=== PATIENT | male | born 1955 | race Caucasian/White ===

== ENCOUNTER → 2017-02-28 | Outpatient (CLI) | payer SELFPAY ==
--- NOTE | 2017-02-28 09:38 | CT ---
HISTORY: Screening. Cardiac CTA with calcium scoring Technique: Multiple axial images of the chest were obtained on a [address] from the aortic arch to the base of the heart with retrospective cardiac gating. Noncontrast evaluation of th e heart was performed for calcium scoring with prospective gating. Dose reduction techniques includi ng Automated Exposure Control (AEC) and adjustment of mA and kV were utilized. Findings: A total calcium score of 712 is observed. The score results in a high likelihood of coronary events given the age and sex matched cohort analysis. Minimal coronary artery disease is seen within the left main coronary artery. Mild coronary artery di sease is seen within the left circumflex coronary artery. Moderate coronary artery disease is seen wi thin the left anterior descending coronary artery. Severe disease is seen within the right coronary a rtery. Extracardiac findings: No pathologically enlarged lymphadenopathy can be observed. The aortic arch is unremarkable in its a ppearance with normal vascular configuration. No significant pericardial effusion can be identified. The visualized portions of the lung parenchyma are unremarkable. No lytic or blastic lesions can b e identified within the visualized bony thorax. The visualized portions of the abdomen demonstrate n ormal perfusion patterns of the spleen and liver. IMPRESSION: Total calcium score of 712 corresponding to a high likelihood of coronary artery events. Reported By:
== END ==
LOC: RAD 08:35
PROVIDERS: ATTEND Internal Medicine
DX: Z13.6 Encounter for screening for cardiovascular disorders (principal)

== ENCOUNTER 2021-11-13 15:26 | Inpatient (IN) ==
[2021-11-13 16:36] LABS: LYMPHOCYTES # (AUTO) 0.6 X10^3/uL (1.3-2.9); WHITE BLOOD COUNT 19.7 X10^3/uL (3.6-10.0)
[2021-11-13 16:40] LABS: BASOPHILS % (AUTO) 0.1 % (0.2-1.0); EOSINOPHILS % (AUTO) 0.1 % (0.9-2.9); HEMATOCRIT 37.5 % (42.0-54.0); HEMOGLOBIN 12.7 g/dL (13.5-18.0); LYMPHOCYTES % (AUTO) 3.3 % (21.0-51.0); MEAN CORPUSCULAR HEMOGLOBIN 30.2 pg (27.0-34.0); MEAN CORPUSCULAR HGB CONC 33.9 g/dL (33.0-35.0); MEAN PLATELET VOLUME 8.9 fL (7.4-11.0); MONOCYTES # (AUTO) 1.4 x10^3/uL (0.3-0.8); MONOCYTES % (AUTO) 7.3 % (0.0-13.0); NEUTROPHILS # (AUTO) 17.6 x10^3/uL (2.2-4.8); NEUTROPHILS % (AUTO) 89.2 % (42.0-75.0); RED BLOOD COUNT 4.22 X10^6/uL (4.7-6.0); RED CELL DISTRIBUTION WIDTH 14.3 % (11.6-16.5)
[2021-11-13 16:51] LABS: PLATELET MORPHOLOGY COMMENT NORMAL (NORMAL)
[2021-11-13 16:52] LABS: ALBUMIN 2.6 g/dL (3.4-5.0); CALCIUM 8.5 mg/dL (8.5-10.1); CARBON DIOXIDE 23.2 mmol/L (21-32); COR CA(FOR HYPOALB) 9.6 mg/dL (8.5-10.1); CREATININE 3.54 mg/dL (0.70-1.30)
[2021-11-13] MEDS: VANCOMYCIN IV *PREMIX 1 G/200 ML BAG 1 G/200 ML PIGGYBACK IV SCH (17:50)
[2021-11-13] MEDS: NS 1,000 ML IV 1,000 ML IV SCH (17:50)
[2021-11-13] MEDS ORDERED: RESTORIL CAP 15 MG PO PRN (18:38)
[2021-11-13] MEDS ORDERED: NS 1,000 ML IV 1,000 ML IV ONE (20:14)
[2021-11-13] MEDS ORDERED: TORADOL 15 MG VIAL IVP PRN (20:14)
[2021-11-13] MEDS: INVanz INJ 1 GRAM VIAL 1 G in NS 100 ML IV 100 ML IV SCH (20:20)
[2021-11-13 23:53] LABS: ABG BASE EXCESS -1.1 mmol/L (-2.0-2.0); ABG HCO3 22.2 mmol/L (22-26)
[2021-11-13 23:54] LABS: ABG ALLEN TEST POS
[2021-11-14 06:15] LABS: BASOPHILS # (AUTO) 0.1 X10^3/uL (0.0-0.1); BASOPHILS % (AUTO) 0.4 % (0.2-1.0); EOSINOPHILS # (AUTO) 0.1 x10^3/uL (0.0-0.2); EOSINOPHILS % (AUTO) 0.6 % (0.9-2.9); HEMATOCRIT 33.8 % (42.0-54.0); HEMOGLOBIN 11.5 g/dL (13.5-18.0); LYMPHOCYTES # (AUTO) 0.7 X10^3/uL (1.3-2.9); LYMPHOCYTES % (AUTO) 4.3 % (21.0-51.0); MEAN CORPUSCULAR HEMOGLOBIN 30.2 pg (27.0-34.0); MEAN CORPUSCULAR HGB CONC 33.9 g/dL (33.0-35.0); MEAN CORPUSCULAR VOLUME 89.1 fL (80.0-100.0); MEAN PLATELET VOLUME 9.3 fL (7.4-11.0); MONOCYTES # (AUTO) 1.4 x10^3/uL (0.3-0.8); MONOCYTES % (AUTO) 8.5 % (0.0-13.0); NEUTROPHILS % (AUTO) 86.2 % (42.0-75.0); RED BLOOD COUNT 3.79 X10^6/uL (4.7-6.0); RED CELL DISTRIBUTION WIDTH 14.5 % (11.6-16.5); WHITE BLOOD COUNT 16.3 X10^3/uL (3.6-10.0)
[2021-11-14 06:30] LABS: ALBUMIN 2.1 g/dL (3.4-5.0); CARBON DIOXIDE 21.5 mmol/L (21-32); COR CA(FOR HYPOALB) 9.5 mg/dL (8.5-10.1); CREATININE 3.44 mg/dL (0.70-1.30); TOTAL PROTEIN 6.4 g/dL (6.4-8.2)
[2021-11-14] MEDS: NS 1,000 ML IV 1,000 ML IV SCH ×3 (07:01→19:50)
[2021-11-14 07:02] LABS: CKMB % 0.6 % (<4); CREATINE KINASE 165 Units/L (39-308); CREATINE KINASE MB < 1.0 ng/mL (0-4.0)
--- NOTE | 2021-11-14 10:44 | DR.UPDATE ---
H&P Update History and Physical Update: History and Physical reviewed and patient examined. Changes noted: Yes with the following: WAS A DIRECT ADMISSION DUE TO CELLULITIS OF THE RIGHT FOOT. HE HAS MULTIPLE WOUNDS TO THE FOOT. THERE IS ERYTHEMA AND EDEMA NOTED FROM THE FOOT UP TO THE CALF. PATIENT REPORTS UNSTEADY GAIT DUE TO FOOT PAIN AND SWELLING. HE BEGAN HAVING FEVER AND CHILLS ON 11/11/21. PAIN FIRST BEGAN ABOUT A WEEK AGO. HE DENIES INJURY. HE HAS A HX OF NEUROPATHY TO FEET, HYPERLIPIDEMIA, AND GOUT. ON ARRIVAL, VITALS WERE: 99.1-110-20-94%-98/61. LABS WERE OBTAINED. WBC 19.7, RBC 4.22, HGB 12.7, HCT 37.5, PLT COUNT 198, SODIUM 132, POTASSIUM 4.7, CHLORIDE 99, BUN 36, CREATININE 3.54, GLUCOSE 137, LACTIC ACID 1.9, CALCIUM 8.5, TOTAL PROTEIN 0.80, AST 20, ALT 27, ALK PHOS 92, CRP 473.90, TOTAL PROTEIN 7.0, ALBUMIN 2.6. BLOOD CULTURES WERE SET UP. HE WAS STARTED ON NORMAL SALINE AT 125 ML/HR, VANCOMYCIN 1G IV DAILY, INVANZ 1G IV DAILY, TORADOL 15MG IV Q12H PRN PAIN, DILAUDID 2MG IV Q4H PRN PAIN, KLONOPIN 0.5MG PO HS, AND ZOCOR 20MG PO HS. WE WILL CONSULT , GENERAL SURGEON, FOR POSSIBLE DEBRIDEMENT OF WOUNDS. OTHERWISE, WE PLAN TO FOLLOW-UP WITH AM LABS AND CONTINUE TO MONITOR. TIME SPENT ON CLINICAL ASSESSMENT, REVIEWING LABS AND IMAGING, DECISION MAKING, AND DOCUMENTATION GREATER THAN 75 MINUTES. H&P Reviewed: Yes Patient was examined?: Yes
--- NOTE | 2021-11-14 11:13 | VAS ---
HISTORY:Right lower extremity cellulitis, abscessStudy: Venous DopplerComparison:NoneTECHNIQUE: Multiple jennings scale and color flow Doppler images of the deep venous system were obtained of the right lower extremityFINDINGS:There is normal respiratory phasicity, compression and augmentation of the extremity veins without evidence of acute DVT .IMPRESSION:1.Negative for DVT.Electronically signed by: HUNTER STEVE (Nov 14, 2021 11:11:05)
--- NOTE | 2021-11-14 12:13 | RAD ---
HISTORYPreop foot surgerySTUDYAP chestCOMPARISONNoneFINDINGSHeart size is upper-normal with dilated aorta, clear lungs and pleural spaces. There is no evidence for CHF or pneumonia.IMPRESSIONNo acute findings.Electronically signed by: RAMIRO BUSBY (Nov 14, 2021 12:12:29)
[2021-11-14] MEDS: DILAUDID INJ IVP PRN (12:36)
[2021-11-14] MEDS ORDERED: NS 1,000 ML IV 1,000 ML ONE (12:47)
[2021-11-14] MEDS ORDERED: DIPRIVAN VIAL 20 ML ONE (13:02)
[2021-11-14] MEDS ORDERED: BETADINE SOLN ONE (13:07)
[2021-11-14] MEDS ORDERED: CLEOCIN 600 MG IV PREMIX 600 MG/50 ML BAG IV ONE (13:09)
[2021-11-14] MEDS ORDERED: KETAMINE HCL ONE (13:15)
[2021-11-14] MEDS ORDERED: VERSED ONE (13:20)
[2021-11-14] MEDS ORDERED: XYLOCAINE 1 % (PLAIN) ONE (13:27)
[2021-11-14] MEDS ORDERED: NEO-SYNEPHRINE INJ ONE (13:29)
[2021-11-14] MEDS ORDERED: NS 100 ML IV 100 ML ONE (13:48)
[2021-11-14] MEDS ORDERED: NEO-SYNEPHRINE INJ 30 MG in NS 500 ML IV 500 ML IV PRN (14:05)
[2021-11-14] MEDS ORDERED: ZOFRAN INJ 4 MG VIAL IVP PRN (14:22)
--- NOTE | 2021-11-14 14:25 | PCM.PROG ---
Progress Note - Past Medical Family Social History Allergies: Allergies Penicillins Allergy (Verified 11/13/21 15:58) - Vital Signs and I&O's Vital Signs: Temperature 97.6 F Pulse Rate [Radial] 114 Pulse Rate 97 Respiratory Rate 18 Blood Pressure [Right Arm] 92/54 Blood Pressure 95/61 O2 Sat by Pulse Oximetry 95 Intake and Output: Intake & Output 11/11/21 11/12/21 11/13/21 11/14/21 23:59 23:59 23:59 23:59 Intake Total 1683 / 1683 1423 / 1423 Output Total 499 / 499 Balance 1683 / 1683 924 / 924 - Physical Exam Mood Description: Calm Speech Pattern: Clear, Appropriate - Laboratory and Diagnostics Result Diagrams: 11/14/21 05:19 11/14/21 05:19 Labs: 11/13/21 16:25 Foot - Right Wound Gram Stain - Final 11/13/21 16:25 Foot - Right Wound Culture - Preliminary Laboratory WBC 16.3 X10^3/uL (3.6-10.0) H 11/14/21 05:19 RBC 3.79 X10^6/uL (4.7-6.0) L 11/14/21 05:19 Hgb 11.5 g/dL (13.5-18.0) L 11/14/21 05:19 Hct 33.8 % (42.0-54.0) L 11/14/21 05:19 MCV 89.1 fL (80.0-100.0) 11/14/21 05:19 MCH 30.2 pg (27.0-34.0) 11/14/21 05:19 MCHC 33.9 g/dL (33.0-35.0) 11/14/21 05:19 RDW 14.5 % (11.6-16.5) 11/14/21 05:19 Plt Count 184 X10^3/uL (150.0-450.0) 11/14/21 05:19 Plt Count Comment Adequate (ADEQUATE) 11/13/21 16:16 MPV 9.3 fL (7.4-11.0) 11/14/21 05:19 Neut % (Auto) 86.2 % (42.0-75.0) H 11/14/21 05:19 Lymph % (Auto) 4.3 % (21.0-51.0) L 11/14/21 05:19 Baxter % (Auto) 8.5 % (0.0-13.0) 11/14/21 05:19 Eos % (Auto) 0.6 % (0.9-2.9) L 11/14/21 05:19 Baso % (Auto) 0.4 % (0.2-1.0) 11/14/21 05:19 Neut # (Auto) 14.0 x10^3/uL (2.2-4.8) H 11/14/21 05:19 Lymph # (Auto) 0.7 X10^3/uL (1.3-2.9) L 11/14/21 05:19 Baxter # (Auto) 1.4 x10^3/uL (0.3-0.8) H 11/14/21 05:19 Eos # (Auto) 0.1 x10^3/uL (0.0-0.2) 11/14/21 05:19 Baso # (Auto) 0.1 X10^3/uL (0.0-0.1) 11/14/21 05:19 Absolute Nucleated RBC 0.0 /100WBC 11/14/21 05:19 Total Counted 100 11/13/21 16:16 Neutrophils % (Manual) 92 % (39-76) H 11/13/21 16:16 Lymphocytes % (Manual) 7 % (13-43) L 11/13/21 16:16 Monocytes % (Manual) 1 % (4-9) L 11/13/21 16:16 Plt Morphology Comment Normal (NORMAL) 11/13/21 16:16 RBC Morphology Normal (NORMAL) 11/13/21 16:16 Sample Site Rrad 11/13/21 23:50 ABG pH 7.450 (7.35-7.45) 11/13/21 23:50 ABG pCO2 32.0 mmHg (35.0-45.0) L 11/13/21 23:50 ABG pO2 93.0 mmHg (80.0-100.0) 11/13/21 23:50 ABG HCO3 22.2 mmol/L (22-26) 11/13/21 23:50 ABG O2 Saturation 98.0 % (90-100) 11/13/21 23:50 ABG Base Excess -1.1 mmol/L (-2.0-2.0) 11/13/21 23:50 Farhan Test Pos 11/13/21 23:50 A-a Gradient 95.0 mmHg 11/13/21 23:50 FiO2 32.0 11/13/21 23:50 Blood Gas Comments Wilmer well ms 11/13/21 23:50 Sodium 132 mmol/L (136-145) L 11/14/21 05:19 Corrected Sodium 132 mmol/L (136-145) L 11/14/21 05:19 Potassium 4.7 mmol/L (3.5-5.1) 11/14/21 05:19 Chloride 100 mmol/L (98-107) 11/14/21 05:19 Carbon Dioxide 21.5 mmol/L (21-32) 11/14/21 05:19 BUN 39 mg/dL (7-18) H 11/14/21 05:19 Creatinine 3.44 mg/dL (0.70-1.30) H 11/14/21 05:19 Est GFR (MDRD) Af Amer 23 (>60) L 11/14/21 05:19 Est GFR (MDRD) Non-Af 19 (>60) L 11/14/21 05:19 Glucose 116 mg/dL (65-99) H 11/14/21 05:19 Lactic Acid 1.9 mmol/L (0.4-2.0) 11/13/21 23:40 Calcium 8.0 mg/dL (8.5-10.1) L 11/14/21 05:19 Corrected Calcium 9.5 mg/dL (8.5-10.1) 11/14/21 05:19 Total Bilirubin 0.60 mg/dL (0.2-1.0) 11/14/21 05:19 AST 15 Units/L (15-37) 11/14/21 05:19 ALT 20 Units/L (12-78) 11/14/21 05:19 Alkaline Phosphatase 90 Units/L (46-116) 11/14/21 05:19 Creatine Kinase 165 Units/L (39-308) 11/14/21 05:19 CK-MB (CK-2) < 1.0 ng/mL (0-4.0) 11/14/21 05:19 CK/CKMB % Calc 0.6 % (<4) 11/14/21 05:19 Troponin I High Sens 6.6 ng/L (4.0-60.0) 11/14/21 05:19 C-Reactive Protein 450.00 mg/L (0-3.0) H 11/14/21 05:19 Total Protein 6.4 g/dL (6.4-8.2) 11/14/21 05:19 Albumin 2.1 g/dL (3.4-5.0) L 11/14/21 05:19 Globulin 4.3 g/dL (2.5-4.5) 11/14/21 05:19 Albumin/Globulin Ratio 0.5 Ratio (1.1-2.1) L 11/14/21 05:19 SARS-CoV-2 (PCR) Negative (NEGATIVE) 11/13/21 18:58 Tissue Pathology To follow 11/14/21 13:39 Procedures (ALL) - Central Line Placement PCM.CLCO: verbal consent Time out performed: Yes Patient placed pm monitor/pulse ox: Yes MD prep: mask, gown, gloves, other Centrial line prep: chlorhexidine scrub Local anesthsia used: lidocane 1% Ultrasound used for placement: Yes Central line lumen ininserted: triple Post procedure: sutured in place, good blood return, all ports aspirated, flushed,capped, sterile dressing applied Post procedure xray: tip oc catheter in good position, no pneumothorax seen, other Patient tolerated procedure: Yes Complications: none (good US visualization)
--- NOTE | 2021-11-14 15:07 | RAD ---
HISTORYLine placementSTUDYAP [id number]/12/2022 9:16 a.m.FINDINGSThere is a new right IJ line extending to the SVC. There is no definite change in appearance of heart or lungs since earlier today although the patient is significantly rotated, limiting cardiopulmonary evaluation. There is no evidence for pneumothorax.IMPRESSIONNo significant complication identified involving right IJ line placement.Electronically signed by: RAMIRO BUSBY (Nov 14, 2021 15:05:47)
[2021-11-14] MEDS ORDERED: STERILE WATER IRRIGATION IR ONE (15:29)
[2021-11-14 16:42] LABS: PHOSPHORUS 3.8 mg/dL (2.6-4.7)
[2021-11-14] MEDS: VANCOMYCIN IV *PREMIX 1 G/200 ML BAG 1 G/200 ML PIGGYBACK IV SCH (19:49)
[2021-11-14] MEDS: PHARMACY CONSULT - VANCOMYCIN XX SCH ×2 (19:57→22:38)
[2021-11-14] MEDS: INVanz INJ 1 GRAM VIAL 1 G in NS 100 ML IV 100 ML IV SCH (20:33)
[2021-11-14] MEDS: ZOCOR TAB 20 MG PO SCH (20:34)
[2021-11-14] MEDS ORDERED: KLONOPIN TAB 1 MG PO SCH (21:00)
[2021-11-15 04:18] LABS: HEMOGLOBIN 10.1 g/dL (13.5-18.0); MEAN PLATELET VOLUME 8.7 fL (7.4-11.0); RED BLOOD COUNT 3.31 X10^6/uL (4.7-6.0); RED CELL DISTRIBUTION WIDTH 14.3 % (11.6-16.5)
[2021-11-15 04:25] LABS: BASOPHILS # (AUTO) 0.1 X10^3/uL (0.0-0.1); BASOPHILS % (AUTO) 0.4 % (0.2-1.0); EOSINOPHILS # (AUTO) 0.2 x10^3/uL (0.0-0.2); EOSINOPHILS % (AUTO) 1.1 % (0.9-2.9); HEMATOCRIT 29.3 % (42.0-54.0); LYMPHOCYTES # (AUTO) 1.2 X10^3/uL (1.3-2.9); LYMPHOCYTES % (AUTO) 7.8 % (21.0-51.0); MEAN CORPUSCULAR HEMOGLOBIN 30.5 pg (27.0-34.0); MEAN CORPUSCULAR HGB CONC 34.5 g/dL (33.0-35.0); MEAN CORPUSCULAR VOLUME 88.5 fL (80.0-100.0); MONOCYTES # (AUTO) 1.1 x10^3/uL (0.3-0.8); MONOCYTES % (AUTO) 7.1 % (0.0-13.0); NEUTROPHILS # (AUTO) 12.9 x10^3/uL (2.2-4.8); NEUTROPHILS % (AUTO) 83.6 % (42.0-75.0); WHITE BLOOD COUNT 15.4 X10^3/uL (3.6-10.0)
[2021-11-15 04:27] LABS: ALANINE AMINOTRANSFERASE 18 Units/L (12-78); ALBUMIN 1.8 g/dL (3.4-5.0); ALKALINE PHOSPHATASE 87 Units/L (46-116); ASPARTATE AMINO TRANSFERASE 12 Units/L (15-37); BLOOD UREA NITROGEN 34 mg/dL (7-18); CALCIUM 7.6 mg/dL (8.5-10.1); CARBON DIOXIDE 22.7 mmol/L (21-32); CHLORIDE 103 mmol/L (98-107); COR CA(FOR HYPOALB) 9.4 mg/dL (8.5-10.1); CREATININE 2.62 mg/dL (0.70-1.30); SODIUM 133 mmol/L (136-145); TOTAL PROTEIN 5.9 g/dL (6.4-8.2); eGFR NON BLACK RACES 26 (>60)
[2021-11-15 04:30] LABS: LACTIC ACID 0.5 mmol/L (0.4-2.0)
[2021-11-15] MEDS: NS 1,000 ML IV 1,000 ML IV SCH ×2 (05:56→21:29)
[2021-11-15] MEDS: ALBUMIN HUMAN 25%- 100 ML 100 ML IV SCH (10:11)
[2021-11-15] MEDS ORDERED: DOPAMINE IV PREMIX 400 MG/250 ML 400 MG/250 ML BAG IV PRN (10:39)
[2021-11-15] MEDS ORDERED: MAALOX or MYLANTA PO PRN (12:09)
[2021-11-15] MEDS ORDERED: MAALOX or MYLANTA ONE (12:10)
--- NOTE | 2021-11-15 15:28 | RAD ---
CHEST, 1 VIEWHISTORY:SOBStudy: Single view of the chest.Comparison:NoneFindings:Cardiomegaly and pulmonary vascular congestion. No focal consolidations, pleural effusions or pneumothorax. Osseous structures demonstrate no acute abnormality.IMPRESSION:1.Cardiomegaly and pulmonary vascular congestion.Electronically signed by: AURE MANCINI (Nov 15, 2021 15:26:20)
--- NOTE | 2021-11-15 15:53 | DR.PROGNOT ---
Hospital Progress Notes - Progress Note for Day of: Progress Note Date: 11/15/21 - Chief Complaint Chief Complaint: comfortable with moderate foot pain . WBC 15.4.. BUN/Creat 34/2.6. temp 98.2. stable VS - Past Medical Family Social History Past Med/Fam/Surg Hx: No changes since H&P Allergies: Allergies Penicillins Allergy (Verified 11/13/21 15:58) - Review Of Systems ROS: No change since H&P - Vital Signs Vital Signs: Temperature 98.8 F Pulse Rate [Radial] 114 Pulse Rate 101 Respiratory Rate 36 Blood Pressure [Right Arm] 92/54 Blood Pressure 136/76 O2 Sat by Pulse Oximetry 98 - Physical Exam Oriented: Normal Ear: Normal Nose: Normal Throat: Normal Respiratory: Normal Cardiovascular: Normal : Normal GI:Auscultation: Normal GI:Palpation: Normal GI: Tenderness: Normal Skin: Other (dressing was changed and packing was replaced ... foot still erythematous . no clear necrosis or abscess formation ) Mood Description: Calm Speech Pattern: Clear, Appropriate - Laboratory and Diagnostics Result Diagrams: 11/15/21 04:06 11/15/21 04:06 Labs: 11/13/21 16:24 Blood Blood Culture - Preliminary 11/13/21 16:16 Blood Blood Culture - Preliminary 11/14/21 13:32 Foot - Right Wound Gram Stain - Final 11/14/21 13:32 Foot - Right Wound Culture - Preliminary 11/13/21 16:25 Foot - Right Wound Gram Stain - Final 11/13/21 16:25 Foot - Right Wound Culture - Final Methicillin Resis Staph Aureus Laboratory WBC 15.4 X10^3/uL (3.6-10.0) H 11/15/21 04:06 RBC 3.31 X10^6/uL (4.7-6.0) L 11/15/21 04:06 Hgb 10.1 g/dL (13.5-18.0) L 11/15/21 04:06 Hct 29.3 % (42.0-54.0) L 11/15/21 04:06 MCV 88.5 fL (80.0-100.0) 11/15/21 04:06 MCH 30.5 pg (27.0-34.0) 11/15/21 04:06 MCHC 34.5 g/dL (33.0-35.0) 11/15/21 04:06 RDW 14.3 % (11.6-16.5) 11/15/21 04:06 Plt Count 196 X10^3/uL (150.0-450.0) 11/15/21 04:06 Plt Count Comment Adequate (ADEQUATE) 11/13/21 16:16 MPV 8.7 fL (7.4-11.0) 11/15/21 04:06 Neut % (Auto) 83.6 % (42.0-75.0) H 11/15/21 04:06 Lymph % (Auto) 7.8 % (21.0-51.0) L 11/15/21 04:06 Baker % (Auto) 7.1 % (0.0-13.0) 11/15/21 04:06 Eos % (Auto) 1.1 % (0.9-2.9) 11/15/21 04:06 Baso % (Auto) 0.4 % (0.2-1.0) 11/15/21 04:06 Neut # (Auto) 12.9 x10^3/uL (2.2-4.8) H 11/15/21 04:06 Lymph # (Auto) 1.2 X10^3/uL (1.3-2.9) L 11/15/21 04:06 Baker # (Auto) 1.1 x10^3/uL (0.3-0.8) H 11/15/21 04:06 Eos # (Auto) 0.2 x10^3/uL (0.0-0.2) 11/15/21 04:06 Baso # (Auto) 0.1 X10^3/uL (0.0-0.1) 11/15/21 04:06 Absolute Nucleated RBC 0.1 /100WBC 11/15/21 04:06 Total Counted 100 11/13/21 16:16 Neutrophils % (Manual) 92 % (39-76) H 11/13/21 16:16 Lymphocytes % (Manual) 7 % (13-43) L 11/13/21 16:16 Monocytes % (Manual) 1 % (4-9) L 11/13/21 16:16 Plt Morphology Comment Normal (NORMAL) 11/13/21 16:16 RBC Morphology Normal (NORMAL) 11/13/21 16:16 PT 17.7 SECONDS (11.8-14.3) 11/14/21 16:05 INR Target Range - 11/14/21 16:05 INR 1.51 (0.8-1.3) H 11/14/21 16:05 APTT 57.9 SECONDS (22.9-36.5) H 11/14/21 16:05 PTT Comment - 11/14/21 16:05 D-Dimer 3.83 ug/ml (0.0-0.57) H 11/15/21 13:55 Sample Site Rrad 11/13/21 23:50 ABG pH 7.450 (7.35-7.45) 11/13/21 23:50 ABG pCO2 32.0 mmHg (35.0-45.0) L 11/13/21 23:50 ABG pO2 93.0 mmHg (80.0-100.0) 11/13/21 23:50 ABG HCO3 22.2 mmol/L (22-26) 11/13/21 23:50 ABG O2 Saturation 98.0 % (90-100) 11/13/21 23:50 ABG Base Excess -1.1 mmol/L (-2.0-2.0) 11/13/21 23:50 Farhan Test Pos 11/13/21 23:50 A-a Gradient 95.0 mmHg 11/13/21 23:50 FiO2 32.0 11/13/21 23:50 Blood Gas Comments Wilmer well ms 11/13/21 23:50 Sodium 133 mmol/L (136-145) L 11/15/21 04:06 Corrected Sodium TNP 11/15/21 04:06 Potassium 4.2 mmol/L (3.5-5.1) 11/15/21 04:06 Chloride 103 mmol/L (98-107) 11/15/21 04:06 Carbon Dioxide 22.7 mmol/L (21-32) 11/15/21 04:06 BUN 34 mg/dL (7-18) H 11/15/21 04:06 Creatinine 2.62 mg/dL (0.70-1.30) H 11/15/21 04:06 Est GFR (MDRD) Af Amer 32 (>60) L 11/15/21 04:06 Est GFR (MDRD) Non-Af 26 (>60) L 11/15/21 04:06 Glucose 110 mg/dL (65-99) H 11/15/21 04:06 Lactic Acid 0.5 mmol/L (0.4-2.0) 11/15/21 10:06 Calcium 7.6 mg/dL (8.5-10.1) L 11/15/21 04:06 Corrected Calcium 9.4 mg/dL (8.5-10.1) 11/15/21 04:06 Phosphorus 3.8 mg/dL (2.6-4.7) 11/14/21 16:05 Magnesium 2.0 mg/dL (1.7-2.9) 11/14/21 16:05 Total Bilirubin 0.40 mg/dL (0.2-1.0) 11/15/21 04:06 AST 12 Units/L (15-37) L 11/15/21 04:06 ALT 18 Units/L (12-78) 11/15/21 04:06 Alkaline Phosphatase 87 Units/L (46-116) 11/15/21 04:06 Creatine Kinase 165 Units/L (39-308) 11/14/21 05:19 CK-MB (CK-2) < 1.0 ng/mL (0-4.0) 11/14/21 05:19 CK/CKMB % Calc 0.6 % (<4) 11/14/21 05:19 Troponin I High Sens 6.6 ng/L (4.0-60.0) 11/14/21 05:19 C-Reactive Protein 397.50 mg/L (0-3.0) H 11/15/21 04:06 B-Natriuretic Peptide 42.7 pg/mL (0-79) 11/15/21 04:06 Total Protein 5.9 g/dL (6.4-8.2) L 11/15/21 04:06 Albumin 1.8 g/dL (3.4-5.0) L 11/15/21 04:06 Globulin 4.1 g/dL (2.5-4.5) 11/15/21 04:06 Albumin/Globulin Ratio 0.4 Ratio (1.1-2.1) L 11/15/21 04:06 Amylase 32 Units/L (25-115) 11/14/21 16:05 Lipase 174 Units/L (73-393) 11/14/21 16:05 SARS-CoV-2 (PCR) Negative (NEGATIVE) 11/13/21 18:58 Tissue Pathology To follow 11/14/21 13:39 - Assessment and Plan 2: soft tissue infection with necrosis and gangrene dorsal RT foot .. s/p debridement . same IV ABT and local care . further debridement as needed ..
[2021-11-15] MEDS: DILAUDID INJ IVP PRN (18:00)
[2021-11-15] MEDS: VANCOMYCIN IV *PREMIX 1 G/200 ML BAG 1 G/200 ML PIGGYBACK IV SCH (18:14)
[2021-11-15] MEDS ORDERED: LASIX IVP ONE (18:32)
[2021-11-15] MEDS ORDERED: LASIX ONE (21:11)
[2021-11-15] MEDS: INVanz INJ 1 GRAM VIAL 1 G in NS 100 ML IV 100 ML IV SCH (21:30)
[2021-11-15] MEDS: ZOCOR TAB 20 MG PO SCH (21:30)
[2021-11-15] MEDS: RESTORIL CAP 15 MG PO PRN (21:31)
[2021-11-16 05:17] LABS: BASOPHILS # (AUTO) 0.1 X10^3/uL (0.0-0.1); BASOPHILS % (AUTO) 0.7 % (0.2-1.0); EOSINOPHILS # (AUTO) 0.2 x10^3/uL (0.0-0.2); EOSINOPHILS % (AUTO) 2.3 % (0.9-2.9); HEMOGLOBIN 10.1 g/dL (13.5-18.0); LYMPHOCYTES # (AUTO) 1.1 X10^3/uL (1.3-2.9); LYMPHOCYTES % (AUTO) 10.3 % (21.0-51.0); MEAN CORPUSCULAR HEMOGLOBIN 30.8 pg (27.0-34.0); MEAN CORPUSCULAR HGB CONC 34.8 g/dL (33.0-35.0); MEAN CORPUSCULAR VOLUME 88.6 fL (80.0-100.0); MEAN PLATELET VOLUME 8.4 fL (7.4-11.0); MONOCYTES # (AUTO) 0.9 x10^3/uL (0.3-0.8); MONOCYTES % (AUTO) 8.6 % (0.0-13.0); NEUTROPHILS # (AUTO) 8.5 x10^3/uL (2.2-4.8); NEUTROPHILS % (AUTO) 78.1 % (42.0-75.0); RED BLOOD COUNT 3.27 X10^6/uL (4.7-6.0); RED CELL DISTRIBUTION WIDTH 14.5 % (11.6-16.5); WHITE BLOOD COUNT 10.8 X10^3/uL (3.6-10.0)
[2021-11-16 05:30] LABS: ALANINE AMINOTRANSFERASE 21 Units/L (12-78); ALBUMIN 2.1 g/dL (3.4-5.0); ALKALINE PHOSPHATASE 90 Units/L (46-116); ASPARTATE AMINO TRANSFERASE 16 Units/L (15-37); BLOOD UREA NITROGEN 27 mg/dL (7-18); CALCIUM 8.2 mg/dL (8.5-10.1); CARBON DIOXIDE 23.6 mmol/L (21-32); CHLORIDE 102 mmol/L (98-107); COR CA(FOR HYPOALB) 9.7 mg/dL (8.5-10.1); CREATININE 2.08 mg/dL (0.70-1.30); SODIUM 134 mmol/L (136-145); TOTAL PROTEIN 6.3 g/dL (6.4-8.2); eGFR NON BLACK RACES 34 (>60)
[2021-11-16] MEDS: NS 1,000 ML IV 1,000 ML IV SCH ×2 (06:00→09:34)
--- NOTE | 2021-11-16 06:37 | RAD ---
HISTORYShortness of breathSTUDYChest AP [id number]/13/2022FINDINGSTher e is a right IJ line in good position. The heart is enlarged. No congestive heart failure is noted. No acute alveolar infiltrates or pleural effusions are identified. Bony thorax is unremarkable.IMPRESSIONMild cardiomegaly without congestive heart failureNo infiltratesElectronically signed by: LORENZO FINN (Nov 16, 2021 06:36:05)
[2021-11-16] MEDS ORDERED: HYDROGEN PEROXIDE 3% ONE (09:16)
[2021-11-16] MEDS: ALBUMIN HUMAN 25%- 100 ML 100 ML IV SCH (09:33)
--- NOTE | 2021-11-16 10:54 | DR.PROGNOT ---
Hospital Progress Notes - Progress Note for Day of: Progress Note Date: 11/16/21 - Chief Complaint Chief Complaint: moderate pain Lt foot . 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 temp 100.7. WBC 10.8 - Past Medical Family Social History Past Med/Fam/Surg Hx: No changes since H&P Allergies: Allergies Penicillins Allergy (Verified 11/13/21 15:58) - Review Of Systems ROS: No change since H&P - Vital Signs Vital Signs: Temperature 100.7 F Pulse Rate [Radial] 114 Pulse Rate 91 Respiratory Rate 14 Blood Pressure [Right Arm] 92/54 Blood Pressure 129/99 O2 Sat by Pulse Oximetry 97 - Physical Exam Oriented: Normal Ear: Normal Nose: Normal Throat: Normal Respiratory: Normal Cardiovascular: Normal : Normal GI:Auscultation: Normal GI:Palpation: Normal GI: Tenderness: Normal Skin: Other (dressing was changed and packing was replaced ... foot still erythematous . some necrotic skin and sub cu tissue ..open wound 12 x 4 cm dorsal Lt foot ) Mood Description: Calm Speech Pattern: Clear, Appropriate - Laboratory and Diagnostics Result Diagrams: 11/16/21 04:35 11/16/21 04:35 Labs: 11/14/21 13:32 Foot - Right Wound Gram Stain - Final 11/14/21 13:32 Foot - Right Wound Culture - Final Methicillin Resis Staph Aureus 11/13/21 16:24 Blood Blood Culture - Preliminary 11/13/21 16:16 Blood Blood Culture - Preliminary 11/13/21 16:25 Foot - Right Wound Gram Stain - Final 11/13/21 16:25 Foot - Right Wound Culture - Final Methicillin Resis Staph Aureus Laboratory WBC 10.8 X10^3/uL (3.6-10.0) H 11/16/21 04:35 RBC 3.27 X10^6/uL (4.7-6.0) L 11/16/21 04:35 Hgb 10.1 g/dL (13.5-18.0) L 11/16/21 04:35 Hct 29.0 % (42.0-54.0) L 11/16/21 04:35 MCV 88.6 fL (80.0-100.0) 11/16/21 04:35 MCH 30.8 pg (27.0-34.0) 11/16/21 04:35 MCHC 34.8 g/dL (33.0-35.0) 11/16/21 04:35 RDW 14.5 % (11.6-16.5) 11/16/21 04:35 Plt Count 208 X10^3/uL (150.0-450.0) 11/16/21 04:35 Plt Count Comment Adequate (ADEQUATE) 11/13/21 16:16 MPV 8.4 fL (7.4-11.0) 11/16/21 04:35 Neut % (Auto) 78.1 % (42.0-75.0) H 11/16/21 04:35 Lymph % (Auto) 10.3 % (21.0-51.0) L 11/16/21 04:35 Mobile % (Auto) 8.6 % (0.0-13.0) 11/16/21 04:35 Eos % (Auto) 2.3 % (0.9-2.9) 11/16/21 04:35 Baso % (Auto) 0.7 % (0.2-1.0) 11/16/21 04:35 Neut # (Auto) 8.5 x10^3/uL (2.2-4.8) H 11/16/21 04:35 Lymph # (Auto) 1.1 X10^3/uL (1.3-2.9) L 11/16/21 04:35 Mobile # (Auto) 0.9 x10^3/uL (0.3-0.8) H 11/16/21 04:35 Eos # (Auto) 0.2 x10^3/uL (0.0-0.2) 11/16/21 04:35 Baso # (Auto) 0.1 X10^3/uL (0.0-0.1) 11/16/21 04:35 Absolute Nucleated RBC 0.0 /100WBC 11/16/21 04:35 Total Counted 100 11/13/21 16:16 Neutrophils % (Manual) 92 % (39-76) H 11/13/21 16:16 Lymphocytes % (Manual) 7 % (13-43) L 11/13/21 16:16 Monocytes % (Manual) 1 % (4-9) L 11/13/21 16:16 Plt Morphology Comment Normal (NORMAL) 11/13/21 16:16 RBC Morphology Normal (NORMAL) 11/13/21 16:16 PT 17.7 SECONDS (11.8-14.3) 11/14/21 16:05 INR Target Range - 11/14/21 16:05 INR 1.51 (0.8-1.3) H 11/14/21 16:05 APTT 57.9 SECONDS (22.9-36.5) H 11/14/21 16:05 PTT Comment - 11/14/21 16:05 D-Dimer 3.83 ug/ml (0.0-0.57) H 11/15/21 13:55 Sample Site Rrad 11/13/21 23:50 ABG pH 7.450 (7.35-7.45) 11/13/21 23:50 ABG pCO2 32.0 mmHg (35.0-45.0) L 11/13/21 23:50 ABG pO2 93.0 mmHg (80.0-100.0) 11/13/21 23:50 ABG HCO3 22.2 mmol/L (22-26) 11/13/21 23:50 ABG O2 Saturation 98.0 % (90-100) 11/13/21 23:50 ABG Base Excess -1.1 mmol/L (-2.0-2.0) 11/13/21 23:50 Farhan Test Pos 11/13/21 23:50 A-a Gradient 95.0 mmHg 11/13/21 23:50 FiO2 32.0 11/13/21 23:50 Blood Gas Comments Wilmer well ms 11/13/21 23:50 Sodium 134 mmol/L (136-145) L 11/16/21 04:35 Corrected Sodium TNP 11/16/21 04:35 Potassium 4.3 mmol/L (3.5-5.1) 11/16/21 04:35 Chloride 102 mmol/L (98-107) 11/16/21 04:35 Carbon Dioxide 23.6 mmol/L (21-32) 11/16/21 04:35 BUN 27 mg/dL (7-18) H 11/16/21 04:35 Creatinine 2.08 mg/dL (0.70-1.30) H 11/16/21 04:35 Est GFR (MDRD) Af Amer 41 (>60) L 11/16/21 04:35 Est GFR (MDRD) Non-Af 34 (>60) L 11/16/21 04:35 Glucose 100 mg/dL (65-99) H 11/16/21 04:35 Lactic Acid 0.5 mmol/L (0.4-2.0) 11/15/21 10:06 Calcium 8.2 mg/dL (8.5-10.1) L 11/16/21 04:35 Corrected Calcium 9.7 mg/dL (8.5-10.1) 11/16/21 04:35 Phosphorus 3.8 mg/dL (2.6-4.7) 11/14/21 16:05 Magnesium 2.0 mg/dL (1.7-2.9) 11/14/21 16:05 Total Bilirubin 0.40 mg/dL (0.2-1.0) 11/16/21 04:35 AST 16 Units/L (15-37) 11/16/21 04:35 ALT 21 Units/L (12-78) 11/16/21 04:35 Alkaline Phosphatase 90 Units/L (46-116) 11/16/21 04:35 Creatine Kinase 165 Units/L (39-308) 11/14/21 05:19 CK-MB (CK-2) < 1.0 ng/mL (0-4.0) 11/14/21 05:19 CK/CKMB % Calc 0.6 % (<4) 11/14/21 05:19 Troponin I High Sens 6.6 ng/L (4.0-60.0) 11/14/21 05:19 C-Reactive Protein 263.00 mg/L (0-3.0) H 11/16/21 04:35 B-Natriuretic Peptide 77.8 pg/mL (0-79) 11/16/21 04:35 Total Protein 6.3 g/dL (6.4-8.2) L 11/16/21 04:35 Albumin 2.1 g/dL (3.4-5.0) L 11/16/21 04:35 Globulin 4.2 g/dL (2.5-4.5) 11/16/21 04:35 Albumin/Globulin Ratio 0.5 Ratio (1.1-2.1) L 11/16/21 04:35 Amylase 32 Units/L (25-115) 11/14/21 16:05 Lipase 174 Units/L (73-393) 11/14/21 16:05 SARS-CoV-2 (PCR) Negative (NEGATIVE) 11/13/21 18:58 Tissue Pathology To follow 11/14/21 13:39 - Assessment and Plan 2: soft tissue infection with necrosis and gangrene dorsal RT foot .. s/p debridement . same IV ABT and local care . for further debridement in am ..
[2021-11-16] MEDS ORDERED: LASIX IVP ONE (10:56)
[2021-11-16] MEDS ORDERED: PHARMACY COMMENT IV NR (17:30)
[2021-11-16 19:11] LABS: CREATININE 1.93 mg/dL (0.70-1.30); VANCOMYCIN,TROUGH 6.5 ug/mL (15-20)
--- NOTE | 2021-11-16 20:03 | PCM.PROG ---
Progress Note - Progress Note for Day of Date of Exam: 11/15/21 - Subjective Subjective: WAS ADMITTED YESTERDAY INPATIENT STATUS DUE TO CELLULITIS OF THE RIGHT FOOT AND LEG WITH NECROTIC WOUND. HE IS STATUS POST DEBRIDEMENT OF WOUND BY . THERE WAS APPARENTLY GANGRENOUS CHANGES IN THE DORSAL ASPECT OF THE RIGHT FOOT MEASURING 14X4 CM. DURING THE NIGHT, PATIENT HAD FEVER, ELEVATED HEARTRATE, AND LOW BLOOD PRESSURE. HE WAS PLACED IN THE INTENSIVE CARE UNIT ON A NEOSYNEPHRINE DRIP DUE TO SEVERE HYPOTENSION. TODAY, HE IS ALERT, LYING IN BED ON MORNING ROUNDS. HE COMPLAINS OF SHORTNESS OF BREATH AND WHEEZING THIS MORNING. NEOSYNEPHRINE DRIP HAS BEEN PAUSED DUE TO MAP BEING ABOVE 65. ON EXAMINATION, HEART IS REGULAR IN RATE AND RHYTHM. BILATERAL LUNGS ARE NOTED WITH SCATTERED WHEEZING THROUGHOUT. HE IS TACHYPNEIC WITH RESPIRATIONS 30-40 BREATHS PER MINUTE. HE IS CURRENTLY UTILIZING OXYGEN AT 2 LPM. SATURATIONS HAVE REMAINED IN THE UPPER 90s. RIGHT FOOT AND LEGS CONTINUES TO HAVE ERYTHEMA AND EDEMA. WOUND CURRENTLY HAS IODOFORM PACKING. HIS VITALS THIS MORNING ARE: 98.0-96-44-98%-130/70. LABS WERE OBTAINED. WBC 15.4, RBC 3.31, HGB 10.1, HCT 29.3, PLT COUNT 196, D-DIMER 3.83, SODIUM 133, POTASSIUM 4.2, CHLORIDE 103, BUN 34, CREATININE 2.62, GLUCOSE 110, LACTIC ACID 0.5, CALCIUM 7.6, TOTAL PROTEIN 0.40, AST 12, ALT 18, ALK PHOS 87, CRP 397.50, TOTAL PROTEIN 5.9, ALBUMIN 1.8, BNP 42.7. BLOOD CULTURES ARE PENDING. WOUND CULTURES ARE POSITIVE FOR GROWTH OF MRSA. A CHEST XRAY WAS OBTAINED TODAY AND REVEALED: 1.Cardiomegaly and pulmonary vascular congestion. HE IS CURRENTLY RECEIVING NORMAL SALINE AT 125 ML/HR, ALBUMIN 25% IV DAILY, VANCOMYCIN 1G IV DAILY, INVANZ 1G IV DAILY, TORADOL 15MG IV Q12H PRN PAIN, DILAUDID 2MG IV Q4H PRN PAIN, PERCOCET 5/325MG PO Q4H PRN, AND ZOCOR 20MG PO HS. DUE TO SHORTNESS OF BREATH, WE WILL DECREASE HIS IV FLUIDS TO 50 ML/HR AND ADMINISTER LASIX 20MG IV BID. WE WILL DISCONTINUE THE NEOSYNEPHRINE DRIP AND ADD DOPAMINE IF IT IS NEEDED FOR HYPOTENSION. OTHERWISE, WE PLAN TO FOLLOW-UP WITH AM LABS AND CHEST XRAY AND CONTINUE TO MONITOR. WILL FOLLOW FOR TREATMENT OF WOUND. TIME SPENT ON CLINICAL ASSE SSMENT, REVIEWING LABS AND IMAGING, DECISION MAKING, AND DOCUMENTATION GREATER THAN 45 MINUTES. - Past Medical Family Social History Past Med/Fam/Surg Hx: No changes since H&P Allergies: Allergies Penicillins Allergy (Verified 11/13/21 15:58) - Review of Systems ROS: No change since H&P - Vital Signs and I&O's Vital Signs: Temperature 100.7 F Pulse Rate [Radial] 114 Pulse Rate 104 Respiratory Rate 14 Blood Pressure [Right Arm] 92/54 Blood Pressure 142/70 O2 Sat by Pulse Oximetry 98 Intake and Output: Intake & Output 11/14/21 11/15/21 11/16/21 11/17/21 11:59 11:59 11:59 11:59 Intake Total 2606 / 2606 3413 / 3413 3522 / 3522 780 / 780 Output Total 2399 / 2399 2600 / 2600 1999 / 1999 Balance 2606 / 2606 1014 / 1014 922 / 922 -1220 / -1220 - Physical Exam Oriented: Normal Eyes: Normal Ear: Normal Nose: Normal Throat: Normal Respiratory: Wheezes Cardiovascular: Normal : Normal Auscultation: Bowel Sounds: Normal Palpation: Normal Tenderness: Normal Skin: Other ( foot still erythematous . some necrotic skin and sub cu tissue ..open wound 12 x 4 cm dorsal Lt foot ) Musculoskeletal: Right, Foot, Swelling, Tender Psychiatric: Normal Mood Description: Calm Affect: Normal Speech Pattern: Clear, Appropriate - Laboratory and Diagnostics Result Diagrams: 11/16/21 04:35 11/16/21 18:25 Labs: 11/14/21 13:32 Foot - Right Wound Gram Stain - Final 11/14/21 13:32 Foot - Right Wound Culture - Final Methicillin Resis Staph Aureus 11/13/21 16:24 Blood Blood Culture - Preliminary 11/13/21 16:16 Blood Blood Culture - Preliminary 11/13/21 16:25 Foot - Right Wound Gram Stain - Final 11/13/21 16:25 Foot - Right Wound Culture - Final Methicillin Resis Staph Aureus Laboratory WBC 10.8 X10^3/uL (3.6-10.0) H 11/16/21 04:35 RBC 3.27 X10^6/uL (4.7-6.0) L 11/16/21 04:35 Hgb 10.1 g/dL (13.5-18.0) L 11/16/21 04:35 Hct 29.0 % (42.0-54.0) L 11/16/21 04:35 MCV 88.6 fL (80.0-100.0) 11/16/21 04:35 MCH 30.8 pg (27.0-34.0) 11/16/21 04:35 MCHC 34.8 g/dL (33.0-35.0) 11/16/21 04:35 RDW 14.5 % (11.6-16.5) 11/16/21 04:35 Plt Count 208 X10^3/uL (150.0-450.0) 11/16/21 04:35 Plt Count Comment Adequate (ADEQUATE) 11/13/21 16:16 MPV 8.4 fL (7.4-11.0) 11/16/21 04:35 Neut % (Auto) 78.1 % (42.0-75.0) H 11/16/21 04:35 Lymph % (Auto) 10.3 % (21.0-51.0) L 11/16/21 04:35 [place] % (Auto) 8.6 % (0.0-13.0) 11/16/21 04:35 Eos % (Auto) 2.3 % (0.9-2.9) 11/16/21 04:35 Baso % (Auto) 0.7 % (0.2-1.0) 11/16/21 04:35 Neut # (Auto) 8.5 x10^3/uL (2.2-4.8) H 11/16/21 04:35 Lymph # (Auto) 1.1 X10^3/uL (1.3-2.9) L 11/16/21 04:35 [place] # (Auto) 0.9 x10^3/uL (0.3-0.8) H 11/16/21 04:35 Eos # (Auto) 0.2 x10^3/uL (0.0-0.2) 11/16/21 04:35 Baso # (Auto) 0.1 X10^3/uL (0.0-0.1) 11/16/21 04:35 Absolute Nucleated RBC 0.0 /100WBC 11/16/21 04:35 Total Counted 100 11/13/21 16:16 Neutrophils % (Manual) 92 % (39-76) H 11/13/21 16:16 Lymphocytes % (Manual) 7 % (13-43) L 11/13/21 16:16 Monocytes % (Manual) 1 % (4-9) L 11/13/21 16:16 Plt Morphology Comment Normal (NORMAL) 11/13/21 16:16 RBC Morphology Normal (NORMAL) 11/13/21 16:16 PT 17.7 SECONDS (11.8-14.3) 11/14/21 16:05 INR Target Range - 11/14/21 16:05 INR 1.51 (0.8-1.3) H 11/14/21 16:05 APTT 57.9 SECONDS (22.9-36.5) H 11/14/21 16:05 PTT Comment - 11/14/21 16:05 D-Dimer 3.83 ug/ml (0.0-0.57) H 11/15/21 13:55 Sample Site Rrad 11/13/21 23:50 ABG pH 7.450 (7.35-7.45) 11/13/21 23:50 ABG pCO2 32.0 mmHg (35.0-45.0) L 11/13/21 23:50 ABG pO2 93.0 mmHg (80.0-100.0) 11/13/21 23:50 ABG HCO3 22.2 mmol/L (22-26) 11/13/21 23:50 ABG O2 Saturation 98.0 % (90-100) 11/13/21 23:50 ABG Base Excess -1.1 mmol/L (-2.0-2.0) 11/13/21 23:50 Farhan Test Pos 11/13/21 23:50 A-a Gradient 95.0 mmHg 11/13/21 23:50 FiO2 32.0 11/13/21 23:50 Blood Gas Comments Wilmer well ms 11/13/21 23:50 Sodium 134 mmol/L (136-145) L 11/16/21 04:35 Corrected Sodium TNP 11/16/21 04:35 Potassium 4.3 mmol/L (3.5-5.1) 11/16/21 04:35 Chloride 102 mmol/L (98-107) 11/16/21 04:35 Carbon Dioxide 23.6 mmol/L (21-32) 11/16/21 04:35 BUN 27 mg/dL (7-18) H 11/16/21 04:35 Creatinine 1.93 mg/dL (0.70-1.30) H 11/16/21 18:25 Est GFR (MDRD) Af Amer 41 (>60) L 11/16/21 04:35 Est GFR (MDRD) Non-Af 34 (>60) L 11/16/21 04:35 Glucose 100 mg/dL (65-99) H 11/16/21 04:35 Lactic Acid 0.5 mmol/L (0.4-2.0) 11/15/21 10:06 Calcium 8.2 mg/dL (8.5-10.1) L 11/16/21 04:35 Corrected Calcium 9.7 mg/dL (8.5-10.1) 11/16/21 04:35 Phosphorus 3.8 mg/dL (2.6-4.7) 11/14/21 16:05 Magnesium 2.0 mg/dL (1.7-2.9) 11/14/21 16:05 Total Bilirubin 0.40 mg/dL (0.2-1.0) 11/16/21 04:35 AST 16 Units/L (15-37) 11/16/21 04:35 ALT 21 Units/L (12-78) 11/16/21 04:35 Alkaline Phosphatase 90 Units/L (46-116) 11/16/21 04:35 Creatine Kinase 165 Units/L (39-308) 11/14/21 05:19 CK-MB (CK-2) < 1.0 ng/mL (0-4.0) 11/14/21 05:19 CK/CKMB % Calc 0.6 % (<4) 11/14/21 05:19 Troponin I High Sens 6.6 ng/L (4.0-60.0) 11/14/21 05:19 C-Reactive Protein 263.00 mg/L (0-3.0) H 11/16/21 04:35 B-Natriuretic Peptide 77.8 pg/mL (0-79) 11/16/21 04:35 Total Protein 6.3 g/dL (6.4-8.2) L 11/16/21 04:35 Albumin 2.1 g/dL (3.4-5.0) L 11/16/21 04:35 Globulin 4.2 g/dL (2.5-4.5) 11/16/21 04:35 Albumin/Globulin Ratio 0.5 Ratio (1.1-2.1) L 11/16/21 04:35 Amylase 32 Units/L (25-115) 11/14/21 16:05 Lipase 174 Units/L (73-393) 11/14/21 16:05 Vancomycin Trough 6.5 ug/mL (15-20) L 11/16/21 18:25 SARS-CoV-2 (PCR) Negative (NEGATIVE) 11/13/21 18:58 Tissue Pathology To follow 11/14/21 13:39 - Plan (1) Cellulitis of right foot Status: Acute Plan: NORMAL SALINE AT 50 ML/HR, ALBUMIN 25% IV DAILY, VANCOMYCIN 1G IV DAILY, INVANZ 1G IV DAILY, TORADOL 15MG IV Q12H PRN PAIN, DILAUDID 2MG IV Q4H PRN PAIN, PERCOCET 5/325MG PO Q4H PRN, AND ZOCOR 20MG PO HS. (2) Gangrene of right foot Status: Acute (3) Pulmonary vascular congestion Status: Acute Plan: LASIX 20MG IV X 1 (4) Hyperlipidemia Status: Chronic Qualifiers: Hyperlipidemia type: mixed hyperlipidemia Qualified Code(s): E78.2 - Mixed hyperlipidemia
--- NOTE | 2021-11-16 20:31 | PCM.PROG ---
Progress Note - Progress Note for Day of Date of Exam: 11/16/21 - Subjective Subjective: IS CURRENTLY BEING TREATED FOR CELLULITIS OF THE RIGHT FOOT AND LEG WITH NECROTIC WOUND TO DORSAL ASPECT OF FOOT AND SEPTIC SHOCK. HE IS STATUS POST DEBRIDEMENT OF WOUND BY . THERE WAS APPARENTLY GANGRENOUS CHANGES IN THE DORSAL ASPECT OF THE RIGHT FOOT MEASURING 14X4 CM. HIS BLOOD PRESSURE, PULSE, AND RESPIRATIONS HAVE LEVELED OFF SINCE YESTERDAY. TODAY, HE IS ALERT, LYING IN BED ON MORNING ROUNDS. HE CONTINUES TO COMPLAIN OF SOME SHORTNESS OF BREATH AND WHEEZING THIS MORNING. ON EXAMINATION, HEART IS REGULAR IN RATE AND RHYTHM. BILATERAL LUNGS ARE NOTED WITH SCATTERED WHEEZING THROUGHOUT. HE IS CURRENTLY UTILIZING OXYGEN AT 2 LPM. SATURATIONS HAVE REMAINED IN THE UPPER 90s. ABDOMEN IS ROUND, SOFT, AND NON-TENDER WITH NORMAL BOWEL SOUNDS NOTED IN ALL QUADRANTS. RIGHT FOOT AND LEGS CONTINUES TO HAVE ERYTHEMA AND EDEMA. WOUND CURRENTLY HAS IODOFORM PACKING. HIS VITALS THIS MORNING ARE: 100.7-97-14-97%-129/99. LABS WERE OBTAINED. WBC 10.8, RBC 3.27, GB 10.1, HCT 29.0, SODIUM 134, POTASSIUM 4.3, BUN 27, CREATININE 2.08, GLUCOSE 100, CALCIUM 8.2, AST 16, ALT 21, ALK PHOS 90, CRP 263.00, TOTAL PROTEIN 6.3, ALBUMIN 2.1. BLOOD CULTURES ARE PENDING. WOUND CULTURES ARE POSITIVE FOR GROWTH OF MRSA. A CHEST XRAY WAS OBTAINED TODAY AND REVEALED: Mild cardiomegaly without congestive heart failure. No infiltrates. HE IS CURRENTLY RECEIVING NORMAL SALINE AT 50 ML/HR, ALBUMIN 25% IV DAILY, VANCOMYCIN 1G IV DAILY, INVANZ 1G IV DAILY, TORADOL 15MG IV Q12H PRN PAIN, DILAUDID 2MG IV Q4H PRN PAIN, PERCOCET 5/325MG PO Q4H PRN, AND ZOCOR 20MG PO HS. DUE TO SHORTNESS OF BREATH, WE WILL ADMINISTER AN ADDITIONAL DOSE OF LASIX 20MG IV X 1 DOSE. OTHERWISE, WE PLAN TO FOLLOW-UP WITH AM LABS AND CHEST XRAY AND CONTINUE TO MONITOR. WILL FOLLOW FOR TREATMENT OF WOUND. TIME SPENT ON CLINICAL ASSESSMENT, REVIEWING LABS AND IMAGING, DECISION MAKING, AND DOCUMENTATION GREATER THAN 45 MINUTES. - Past Medical Family Social History Past Med/Fam/Surg Hx: No changes since H&P Allergies: Allergies Penicillins Allergy (Verified 11/13/21 15:58) - Review of Systems ROS: No change since H&P - Vital Signs and I&O's Vital Signs: Temperature 100.7 F Pulse Rate [Radial] 114 Pulse Rate 101 Respiratory Rate 14 Blood Pressure [Right Arm] 92/54 Blood Pressure 140/70 O2 Sat by Pulse Oximetry 98 Intake and Output: Intake & Output 11/14/21 11/15/21 11/16/21 11/17/21 11:59 11:59 11:59 11:59 Intake Total 2606 / 2606 3413 / 3413 3522 / 3522 780 / 780 Output Total 2399 / 2399 2600 / 2600 1999 / 1999 Balance 2606 / 2606 1014 / 1014 922 / 922 -1220 / -1220 - Physical Exam Oriented: Normal Eyes: Normal Ear: Normal Nose: Normal Throat: Normal Respiratory: Wheezes Cardiovascular: Normal : Normal Auscultation: Bowel Sounds: Normal Palpation: Normal Tenderness: Normal Skin: Other ( foot still erythematous . some necrotic skin and sub cu tissue ..open wound 12 x 4 cm dorsal Lt foot ) Musculoskeletal: Right, Foot, Swelling, Tender Psychiatric: Normal Mood Description: Calm Affect: Normal Speech Pattern: Clear, Appropriate - Laboratory and Diagnostics Result Diagrams: 11/16/21 04:35 11/16/21 18:25 Labs: 11/14/21 13:32 Foot - Right Wound Gram Stain - Final 11/14/21 13:32 Foot - Right Wound Culture - Final Methicillin Resis Staph Aureus 11/13/21 16:24 Blood Blood Culture - Preliminary 11/13/21 16:16 Blood Blood Culture - Preliminary 11/13/21 16:25 Foot - Right Wound Gram Stain - Final 11/13/21 16:25 Foot - Right Wound Culture - Final Methicillin Resis Staph Aureus Laboratory WBC 10.8 X10^3/uL (3.6-10.0) H 11/16/21 04:35 RBC 3.27 X10^6/uL (4.7-6.0) L 11/16/21 04:35 Hgb 10.1 g/dL (13.5-18.0) L 11/16/21 04:35 Hct 29.0 % (42.0-54.0) L 11/16/21 04:35 MCV 88.6 fL (80.0-100.0) 11/16/21 04:35 MCH 30.8 pg (27.0-34.0) 11/16/21 04:35 MCHC 34.8 g/dL (33.0-35.0) 11/16/21 04:35 RDW 14.5 % (11.6-16.5) 11/16/21 04:35 Plt Count 208 X10^3/uL (150.0-450.0) 11/16/21 04:35 Plt Count Comment Adequate (ADEQUATE) 11/13/21 16:16 MPV 8.4 fL (7.4-11.0) 11/16/21 04:35 Neut % (Auto) 78.1 % (42.0-75.0) H 11/16/21 04:35 Lymph % (Auto) 10.3 % (21.0-51.0) L 11/16/21 04:35 [place] % (Auto) 8.6 % (0.0-13.0) 11/16/21 04:35 Eos % (Auto) 2.3 % (0.9-2.9) 11/16/21 04:35 Baso % (Auto) 0.7 % (0.2-1.0) 11/16/21 04:35 Neut # (Auto) 8.5 x10^3/uL (2.2-4.8) H 11/16/21 04:35 Lymph # (Auto) 1.1 X10^3/uL (1.3-2.9) L 11/16/21 04:35 [place] # (Auto) 0.9 x10^3/uL (0.3-0.8) H 11/16/21 04:35 Eos # (Auto) 0.2 x10^3/uL (0.0-0.2) 11/16/21 04:35 Baso # (Auto) 0.1 X10^3/uL (0.0-0.1) 11/16/21 04:35 Absolute Nucleated RBC 0.0 /100WBC 11/16/21 04:35 Total Counted 100 11/13/21 16:16 Neutrophils % (Manual) 92 % (39-76) H 11/13/21 16:16 Lymphocytes % (Manual) 7 % (13-43) L 11/13/21 16:16 Monocytes % (Manual) 1 % (4-9) L 11/13/21 16:16 Plt Morphology Comment Normal (NORMAL) 11/13/21 16:16 RBC Morphology Normal (NORMAL) 11/13/21 16:16 PT 17.7 SECONDS (11.8-14.3) 11/14/21 16:05 INR Target Range - 11/14/21 16:05 INR 1.51 (0.8-1.3) H 11/14/21 16:05 APTT 57.9 SECONDS (22.9-36.5) H 11/14/21 16:05 PTT Comment - 11/14/21 16:05 D-Dimer 3.83 ug/ml (0.0-0.57) H 11/15/21 13:55 Sample Site Rrad 11/13/21 23:50 ABG pH 7.450 (7.35-7.45) 11/13/21 23:50 ABG pCO2 32.0 mmHg (35.0-45.0) L 11/13/21 23:50 ABG pO2 93.0 mmHg (80.0-100.0) 11/13/21 23:50 ABG HCO3 22.2 mmol/L (22-26) 11/13/21 23:50 ABG O2 Saturation 98.0 % (90-100) 11/13/21 23:50 ABG Base Excess -1.1 mmol/L (-2.0-2.0) 11/13/21 23:50 Farhan Test Pos 11/13/21 23:50 A-a Gradient 95.0 mmHg 11/13/21 23:50 FiO2 32.0 11/13/21 23:50 Blood Gas Comments Wilmer well ms 11/13/21 23:50 Sodium 134 mmol/L (136-145) L 11/16/21 04:35 Corrected Sodium TNP 11/16/21 04:35 Potassium 4.3 mmol/L (3.5-5.1) 11/16/21 04:35 Chloride 102 mmol/L (98-107) 11/16/21 04:35 Carbon Dioxide 23.6 mmol/L (21-32) 11/16/21 04:35 BUN 27 mg/dL (7-18) H 11/16/21 04:35 Creatinine 1.93 mg/dL (0.70-1.30) H 11/16/21 18:25 Est GFR (MDRD) Af Amer 41 (>60) L 11/16/21 04:35 Est GFR (MDRD) Non-Af 34 (>60) L 11/16/21 04:35 Glucose 100 mg/dL (65-99) H 11/16/21 04:35 Lactic Acid 0.5 mmol/L (0.4-2.0) 11/15/21 10:06 Calcium 8.2 mg/dL (8.5-10.1) L 11/16/21 04:35 Corrected Calcium 9.7 mg/dL (8.5-10.1) 11/16/21 04:35 Phosphorus 3.8 mg/dL (2.6-4.7) 11/14/21 16:05 Magnesium 2.0 mg/dL (1.7-2.9) 11/14/21 16:05 Total Bilirubin 0.40 mg/dL (0.2-1.0) 11/16/21 04:35 AST 16 Units/L (15-37) 11/16/21 04:35 ALT 21 Units/L (12-78) 11/16/21 04:35 Alkaline Phosphatase 90 Units/L (46-116) 11/16/21 04:35 Creatine Kinase 165 Units/L (39-308) 11/14/21 05:19 CK-MB (CK-2) < 1.0 ng/mL (0-4.0) 11/14/21 05:19 CK/CKMB % Calc 0.6 % (<4) 11/14/21 05:19 Troponin I High Sens 6.6 ng/L (4.0-60.0) 11/14/21 05:19 C-Reactive Protein 263.00 mg/L (0-3.0) H 11/16/21 04:35 B-Natriuretic Peptide 77.8 pg/mL (0-79) 11/16/21 04:35 Total Protein 6.3 g/dL (6.4-8.2) L 11/16/21 04:35 Albumin 2.1 g/dL (3.4-5.0) L 11/16/21 04:35 Globulin 4.2 g/dL (2.5-4.5) 11/16/21 04:35 Albumin/Globulin Ratio 0.5 Ratio (1.1-2.1) L 11/16/21 04:35 Amylase 32 Units/L (25-115) 11/14/21 16:05 Lipase 174 Units/L (73-393) 11/14/21 16:05 Vancomycin Trough 6.5 ug/mL (15-20) L 11/16/21 18:25 SARS-CoV-2 (PCR) Negative (NEGATIVE) 11/13/21 18:58 Tissue Pathology To follow 11/14/21 13:39 - Plan (1) Cellulitis of right foot Status: Acute Plan: NORMAL SALINE AT 50 ML/HR, ALBUMIN 25% IV DAILY, VANCOMYCIN 1G IV DAILY, INVANZ 1G IV DAILY, TORADOL 15MG IV Q12H PRN PAIN, DILAUDID 2MG IV Q4H PRN PAIN, PERCOCET 5/325MG PO Q4H PRN, AND ZOCOR 20MG PO HS. (2) Gangrene of right foot Status: Acute (3) Septic shock Status: Acute (4) Pulmonary vascular congestion Status: Acute Plan: LASIX 20MG IV X 1 (5) Hyperlipidemia Status: Chronic Qualifiers: Hyperlipidemia type: mixed hyperlipidemia Qualified Code(s): E78.2 - Mixed hyperlipidemia
[2021-11-16] MEDS: PERCOCET TAB 5/325 MG PO PRN (20:40)
[2021-11-16] MEDS: RESTORIL CAP 15 MG PO PRN (20:40)
[2021-11-16] MEDS: INVanz INJ 1 GRAM VIAL 1 G in NS 100 ML IV 100 ML IV SCH (20:40)
[2021-11-16] MEDS: ZOCOR TAB 20 MG PO SCH (20:40)
[2021-11-16] MEDS: VANCOMYCIN IV *PREMIX 1 G/200 ML BAG 1 G/200 ML PIGGYBACK IV SCH (21:17)
[2021-11-17] MEDS: NS 1,000 ML IV 1,000 ML IV SCH ×3 (04:15→14:36)
[2021-11-17 05:45] LABS: BASOPHILS # (AUTO) 0.1 X10^3/uL (0.0-0.1); BASOPHILS % (AUTO) 0.6 % (0.2-1.0); EOSINOPHILS # (AUTO) 0.3 x10^3/uL (0.0-0.2); EOSINOPHILS % (AUTO) 2.3 % (0.9-2.9); HEMATOCRIT 28.9 % (42.0-54.0); HEMOGLOBIN 9.9 g/dL (13.5-18.0); LYMPHOCYTES # (AUTO) 1.4 X10^3/uL (1.3-2.9); LYMPHOCYTES % (AUTO) 11.3 % (21.0-51.0); MEAN CORPUSCULAR HEMOGLOBIN 30.4 pg (27.0-34.0); MEAN CORPUSCULAR HGB CONC 34.3 g/dL (33.0-35.0); MEAN CORPUSCULAR VOLUME 88.6 fL (80.0-100.0); MEAN PLATELET VOLUME 8.1 fL (7.4-11.0); MONOCYTES # (AUTO) 1.3 x10^3/uL (0.3-0.8); MONOCYTES % (AUTO) 10.5 % (0.0-13.0); NEUTROPHILS # (AUTO) 9.1 x10^3/uL (2.2-4.8); NEUTROPHILS % (AUTO) 75.3 % (42.0-75.0); RED BLOOD COUNT 3.26 X10^6/uL (4.7-6.0); RED CELL DISTRIBUTION WIDTH 14.2 % (11.6-16.5); WHITE BLOOD COUNT 12.1 X10^3/uL (3.6-10.0)
[2021-11-17 05:52] LABS: ALANINE AMINOTRANSFERASE 20 Units/L (12-78); ALBUMIN 2.1 g/dL (3.4-5.0); ALKALINE PHOSPHATASE 85 Units/L (46-116); ASPARTATE AMINO TRANSFERASE 15 Units/L (15-37); BLOOD UREA NITROGEN 25 mg/dL (7-18); CALCIUM 8.4 mg/dL (8.5-10.1); CHLORIDE 102 mmol/L (98-107); COR CA(FOR HYPOALB) 9.9 mg/dL (8.5-10.1); CREATININE 1.85 mg/dL (0.70-1.30); SODIUM 135 mmol/L (136-145); TOTAL PROTEIN 6.5 g/dL (6.4-8.2); eGFR NON BLACK RACES 39 (>60)
--- NOTE | 2021-11-17 06:55 | RAD ---
HISTORYShortness of breathSTUDYChest AP [id number]/14/2022FINDINGSTher e is a right IJ line in good position. Heart remains enlarged. No congestive heart failure is noted. Lungs are mildly hypoinflated. No infiltrates or pleural effusions are identified. Bony thorax is unremarkable.IMPRESSIONMild cardiomegaly without congestive heart failureNo infiltratesElectronically signed by: LORENZO FINN (Nov 17, 2021 06:54:03)
[2021-11-17] MEDS ORDERED: VERSED ONE (08:31)
[2021-11-17] MEDS ORDERED: FENTANYL VIAL INJ 100 mcg ONE (08:31)
[2021-11-17] MEDS ORDERED: DIPRIVAN VIAL 20 ML ONE (08:31)
[2021-11-17] MEDS ORDERED: BETADINE SOLN ONE (09:13)
[2021-11-17] MEDS ORDERED: NS 100 ML IV 0 ML ONE (09:15)
[2021-11-17] MEDS ORDERED: ANCEF VIAL 1 GRAM ONE (09:15)
[2021-11-17] MEDS ORDERED: LR 1,000 ML IV 1,000 ML IV ONE (09:15)
[2021-11-17] MEDS ORDERED: CLEOCIN 600 MG IV PREMIX 600 MG/50 ML BAG IV ONE (09:22)
[2021-11-17] MEDS: ALBUMIN HUMAN 25%- 100 ML 100 ML IV SCH (10:43)
[2021-11-17 13:15] LABS: ABG ALLEN TEST POS; ABG BASE EXCESS 1.3 mmol/L (-2.0-2.0); ABG HCO3 25.9 mmol/L (22-26)
[2021-11-17] MEDS: ROBITUSSIN DM PO PRN ×2 (13:33→20:46)
[2021-11-17] MEDS: VANCOMYCIN IV *PREMIX 1 G/200 ML BAG 1 G/200 ML PIGGYBACK IV SCH (13:33)
[2021-11-17] MEDS: PERCOCET TAB 5/325 MG PO PRN ×2 (16:07→20:40)
[2021-11-17] MEDS: LASIX IVP SCH (16:07)
[2021-11-17] MEDS: INVanz INJ 1 GRAM VIAL 1 G in NS 100 ML IV 100 ML IV SCH (20:39)
[2021-11-17] MEDS: ZOCOR TAB 20 MG PO SCH (20:39)
[2021-11-17] MEDS: RESTORIL CAP 15 MG PO PRN (20:46)
[2021-11-17] MEDS: TYLENOL 325 MG TAB PO PRN (22:32)
[2021-11-18] MEDS: NS 1,000 ML IV 1,000 ML IV SCH ×2 (03:09→16:20)
[2021-11-18 05:44] LABS: BASOPHILS # (AUTO) 0.2 X10^3/uL (0.0-0.1); BASOPHILS % (AUTO) 1.2 % (0.2-1.0); EOSINOPHILS # (AUTO) 0.4 x10^3/uL (0.0-0.2); EOSINOPHILS % (AUTO) 2.9 % (0.9-2.9); HEMATOCRIT 30.1 % (42.0-54.0); HEMOGLOBIN 10.2 g/dL (13.5-18.0); LYMPHOCYTES # (AUTO) 1.4 X10^3/uL (1.3-2.9); MEAN CORPUSCULAR VOLUME 88.4 fL (80.0-100.0); MEAN PLATELET VOLUME 8.3 fL (7.4-11.0); MONOCYTES # (AUTO) 1.1 x10^3/uL (0.3-0.8); MONOCYTES % (AUTO) 8.7 % (0.0-13.0); NEUTROPHILS # (AUTO) 9.8 x10^3/uL (2.2-4.8); NEUTROPHILS % (AUTO) 76.2 % (42.0-75.0); RED BLOOD COUNT 3.41 X10^6/uL (4.7-6.0); RED CELL DISTRIBUTION WIDTH 14.1 % (11.6-16.5); WHITE BLOOD COUNT 12.9 X10^3/uL (3.6-10.0)
[2021-11-18 05:54] LABS: ALANINE AMINOTRANSFERASE 24 Units/L (12-78); ALBUMIN 2.3 g/dL (3.4-5.0); ALKALINE PHOSPHATASE 99 Units/L (46-116); ASPARTATE AMINO TRANSFERASE 18 Units/L (15-37); BLOOD UREA NITROGEN 23 mg/dL (7-18); CALCIUM 8.4 mg/dL (8.5-10.1); CARBON DIOXIDE 25.6 mmol/L (21-32); COR CA(FOR HYPOALB) 9.8 mg/dL (8.5-10.1); TOTAL PROTEIN 6.7 g/dL (6.4-8.2); eGFR NON BLACK RACES 40 (>60)
[2021-11-18 06:06] LABS: CHLORIDE 101 mmol/L (98-107)
[2021-11-18 06:40] LABS: SODIUM 135 mmol/L (136-145)
--- NOTE | 2021-11-18 07:19 | RAD ---
HISTORYShortness of breathSTUDYSingle-view [id number]/15/2022FINDINGSThe trachea is midline. The cardiac silhouette is enlarged with a tortuous thoracic aorta. Right-sided central venous catheter is again observed within the SVC. The lungs are clear without focal infiltrate or effusion. The bony thorax is unremarkable.IMPRESSIONNo acute cardiopulmonary disease.Electronically signed by: FEI MEANS (Nov 18, 2021 07:18:43)
[2021-11-18] MEDS: LASIX IVP SCH (08:04)
[2021-11-18] MEDS: VANCOMYCIN IV *PREMIX 1 G/200 ML BAG 1 G/200 ML PIGGYBACK IV SCH (08:04)
[2021-11-18] MEDS: ROBITUSSIN DM PO PRN ×2 (08:04→21:00)
--- NOTE | 2021-11-18 09:36 | DR.PROGNOT ---
Hospital Progress Notes - Progress Note for Day of: Progress Note Date: 11/18/21 - Chief Complaint Chief Complaint: s/p debridement RT foot wound .. had low grade fever last night .. dressing was changed .. moderate erythema dorsal foot .. no necrosis or active drainage .. Vanco level 8 - Past Medical Family Social History Past Med/Fam/Surg Hx: No changes since H&P Allergies: Allergies Penicillins Allergy (Verified 11/13/21 15:58) - Review Of Systems ROS: No change since H&P - Vital Signs Vital Signs: Temperature 98.9 F Pulse Rate [Radial] 114 Pulse Rate 100 Respiratory Rate 29 Blood Pressure [Right Arm] 92/54 Blood Pressure 130/68 O2 Sat by Pulse Oximetry 99 - Physical Exam Oriented: Normal Eyes: Normal Ear: Normal Nose: Normal Throat: Normal Respiratory: Wheezes Cardiovascular: Normal : Normal GI:Auscultation: Normal GI:Palpation: Normal GI: Tenderness: Normal Skin: Other ( foot still erythematous . no active drainage 12 x 4 cm dorsal Lt foot ..moves all toes .. ) Musculoskeletal: Right, Foot, Swelling, Tender Psychiatric: Normal Mood Description: Calm Affect: Normal Speech Pattern: Clear, Appropriate - Laboratory and Diagnostics Result Diagrams: 11/18/21 04:19 11/18/21 04:19 Labs: 11/14/21 13:32 Foot - Right Wound Gram Stain - Final 11/14/21 13:32 Foot - Right Wound Culture - Final Methicillin Resis Staph Aureus 11/13/21 16:24 Blood Blood Culture - Preliminary 11/13/21 16:16 Blood Blood Culture - Preliminary 11/13/21 16:25 Foot - Right Wound Gram Stain - Final 11/13/21 16:25 Foot - Right Wound Culture - Final Methicillin Resis Staph Aureus Laboratory WBC 12.9 X10^3/uL (3.6-10.0) H 11/18/21 04:19 RBC 3.41 X10^6/uL (4.7-6.0) L 11/18/21 04:19 Hgb 10.2 g/dL (13.5-18.0) L 11/18/21 04:19 Hct 30.1 % (42.0-54.0) L 11/18/21 04:19 MCV 88.4 fL (80.0-100.0) 11/18/21 04:19 MCH 30.0 pg (27.0-34.0) 11/18/21 04:19 MCHC 34.0 g/dL (33.0-35.0) 11/18/21 04:19 RDW 14.1 % (11.6-16.5) 11/18/21 04:19 Plt Count 298 X10^3/uL (150.0-450.0) 11/18/21 04:19 Plt Count Comment Adequate (ADEQUATE) 11/13/21 16:16 MPV 8.3 fL (7.4-11.0) 11/18/21 04:19 Neut % (Auto) 76.2 % (42.0-75.0) H 11/18/21 04:19 Lymph % (Auto) 11.0 % (21.0-51.0) L 11/18/21 04:19 [place] % (Auto) 8.7 % (0.0-13.0) 11/18/21 04:19 Eos % (Auto) 2.9 % (0.9-2.9) 11/18/21 04:19 Baso % (Auto) 1.2 % (0.2-1.0) H 11/18/21 04:19 Neut # (Auto) 9.8 x10^3/uL (2.2-4.8) H 11/18/21 04:19 Lymph # (Auto) 1.4 X10^3/uL (1.3-2.9) 11/18/21 04:19 [place] # (Auto) 1.1 x10^3/uL (0.3-0.8) H 11/18/21 04:19 Eos # (Auto) 0.4 x10^3/uL (0.0-0.2) H 11/18/21 04:19 Baso # (Auto) 0.2 X10^3/uL (0.0-0.1) H 11/18/21 04:19 Absolute Nucleated RBC 0.0 /100WBC 11/18/21 04:19 Total Counted 100 11/13/21 16:16 Neutrophils % (Manual) 92 % (39-76) H 11/13/21 16:16 Lymphocytes % (Manual) 7 % (13-43) L 11/13/21 16:16 Monocytes % (Manual) 1 % (4-9) L 11/13/21 16:16 Plt Morphology Comment Normal (NORMAL) 11/13/21 16:16 RBC Morphology Normal (NORMAL) 11/13/21 16:16 PT 17.7 SECONDS (11.8-14.3) 11/14/21 16:05 INR Target Range - 11/14/21 16:05 INR 1.51 (0.8-1.3) H 11/14/21 16:05 APTT 57.9 SECONDS (22.9-36.5) H 11/14/21 16:05 PTT Comment - 11/14/21 16:05 D-Dimer 3.83 ug/ml (0.0-0.57) H 11/15/21 13:55 Sample Site Lr 11/17/21 13:10 ABG pH 7.420 (7.35-7.45) 11/17/21 13:10 ABG pCO2 40.0 mmHg (35.0-45.0) 11/17/21 13:10 ABG pO2 73.0 mmHg (80.0-100.0) L 11/17/21 13:10 ABG HCO3 25.9 mmol/L (22-26) 11/17/21 13:10 ABG O2 Saturation 95.0 % (90-100) 11/17/21 13:10 ABG Base Excess 1.3 mmol/L (-2.0-2.0) 11/17/21 13:10 Farhan Test Pos 11/17/21 13:10 A-a Gradient 27.0 mmHg 11/17/21 13:10 FiO2 21.0 11/17/21 13:10 Blood Gas Comments Wilmer well cb 11/17/21 13:10 Sodium 135 mmol/L (136-145) L 11/18/21 04:19 Corrected Sodium TNP 11/18/21 04:19 Potassium 4.2 mmol/L (3.5-5.1) 11/18/21 04:19 Chloride 101 mmol/L (98-107) 11/18/21 04:19 Carbon Dioxide 25.6 mmol/L (21-32) 11/18/21 04:19 BUN 23 mg/dL (7-18) H 11/18/21 04:19 Creatinine 1.80 mg/dL (0.70-1.30) H 11/18/21 04:19 Est GFR (MDRD) Af Amer 49 (>60) L 11/18/21 04:19 Est GFR (MDRD) Non-Af 40 (>60) L 11/18/21 04:19 Glucose 107 mg/dL (65-99) H 11/18/21 04:19 Lactic Acid 0.5 mmol/L (0.4-2.0) 11/15/21 10:06 Calcium 8.4 mg/dL (8.5-10.1) L 11/18/21 04:19 Corrected Calcium 9.8 mg/dL (8.5-10.1) 11/18/21 04:19 Phosphorus 3.8 mg/dL (2.6-4.7) 11/14/21 16:05 Magnesium 2.0 mg/dL (1.7-2.9) 11/14/21 16:05 Total Bilirubin 0.40 mg/dL (0.2-1.0) 11/18/21 04:19 AST 18 Units/L (15-37) 11/18/21 04:19 ALT 24 Units/L (12-78) 11/18/21 04:19 Alkaline Phosphatase 99 Units/L (46-116) 11/18/21 04:19 Creatine Kinase 165 Units/L (39-308) 11/14/21 05:19 CK-MB (CK-2) < 1.0 ng/mL (0-4.0) 11/14/21 05:19 CK/CKMB % Calc 0.6 % (<4) 11/14/21 05:19 Troponin I High Sens 6.6 ng/L (4.0-60.0) 11/14/21 05:19 C-Reactive Protein 227.70 mg/L (0-3.0) H 11/18/21 04:19 B-Natriuretic Peptide 83.7 pg/mL (0-79) H 11/17/21 05:10 Total Protein 6.7 g/dL (6.4-8.2) 11/18/21 04:19 Albumin 2.3 g/dL (3.4-5.0) L 11/18/21 04:19 Globulin 4.4 g/dL (2.5-4.5) 11/18/21 04:19 Albumin/Globulin Ratio 0.5 Ratio (1.1-2.1) L 11/18/21 04:19 Amylase 32 Units/L (25-115) 11/14/21 16:05 Lipase 174 Units/L (73-393) 11/14/21 16:05 Cortisol 12.3 ug/dL 11/14/21 16:05 Vancomycin Trough 6.5 ug/mL (15-20) L 11/16/21 18:25 Random Vancomycin 8.9 ug/mL 11/17/21 10:20 SARS-CoV-2 (PCR) Negative (NEGATIVE) 11/13/21 18:58 Tissue Pathology To follow 11/17/21 10:00 - Assessment and Plan 2: soft tissue infection with necrosis and gangrene dorsal RT foot .. s/p debridement . same IV ABT and local care . - Problem Patient Problems: Patient Problems Cellulitis of right foot (Acute) L03.115 Gangrene of right foot (Acute) I96 Pulmonary vascular congestion (Acute) R09.89 Hyperlipidemia (Chronic) E78.5 Septic shock (Acute) A41.9, R65.21
[2021-11-18] MEDS: LOVENOX INJ 40 MG SYR SC SCH (10:27)
[2021-11-18] MEDS: XOPENEX 1.25 MG/3 ML NEBULE NEB SCH ×3 (10:55→21:00)
[2021-11-18] MEDS: TYLENOL 325 MG TAB PO PRN (13:54)
[2021-11-18] MEDS: PEPCID TAB 20 MG PO SCH (17:22)
[2021-11-18] MEDS: ZOCOR TAB 20 MG PO SCH (21:00)
[2021-11-18] MEDS: INVanz INJ 1 GRAM VIAL 1 G in NS 100 ML IV 100 ML IV SCH (21:00)
[2021-11-18] MEDS: RESTORIL CAP 15 MG PO PRN (21:30)
[2021-11-18] MEDS: PERCOCET TAB 5/325 MG PO PRN (21:30)
[2021-11-19] MEDS: VANCOMYCIN IV *PREMIX 1 G/200 ML BAG 1 G/200 ML PIGGYBACK IV SCH ×2 (02:40→21:30)
[2021-11-19] MEDS: TYLENOL 325 MG TAB PO PRN ×2 (03:00→20:36)
[2021-11-19 05:37] LABS: ALBUMIN 2.1 g/dL (3.4-5.0); CALCIUM 8.2 mg/dL (8.5-10.1); CARBON DIOXIDE 26.2 mmol/L (21-32); COR CA(FOR HYPOALB) 9.7 mg/dL (8.5-10.1); CREATININE 2.04 mg/dL (0.70-1.30); TOTAL PROTEIN 6.5 g/dL (6.4-8.2)
[2021-11-19 06:06] LABS: BASOPHILS # (AUTO) 0.1 X10^3/uL (0.0-0.1); HEMATOCRIT 30.1 % (42.0-54.0); LYMPHOCYTES # (AUTO) 1.3 X10^3/uL (1.3-2.9); MONOCYTES # (AUTO) 1.1 x10^3/uL (0.3-0.8); MONOCYTES % (AUTO) 6.9 % (0.0-13.0); NEUTROPHILS # (AUTO) 12.7 x10^3/uL (2.2-4.8); WHITE BLOOD COUNT 15.5 X10^3/uL (3.6-10.0)
[2021-11-19] MEDS: XOPENEX 1.25 MG/3 ML NEBULE NEB SCH ×3 (06:10→20:15)
[2021-11-19 06:15] LABS: BASOPHILS % (AUTO) 0.7 % (0.2-1.0); EOSINOPHILS # (AUTO) 0.3 x10^3/uL (0.0-0.2); EOSINOPHILS % (AUTO) 2.1 % (0.9-2.9); HEMOGLOBIN 10.1 g/dL (13.5-18.0); LYMPHOCYTES % (AUTO) 8.7 % (21.0-51.0); MEAN CORPUSCULAR HEMOGLOBIN 29.8 pg (27.0-34.0); MEAN CORPUSCULAR HGB CONC 33.6 g/dL (33.0-35.0); MEAN CORPUSCULAR VOLUME 88.7 fL (80.0-100.0); MEAN PLATELET VOLUME 8.5 fL (7.4-11.0); NEUTROPHILS % (AUTO) 81.6 % (42.0-75.0); RED BLOOD COUNT 3.39 X10^6/uL (4.7-6.0); RED CELL DISTRIBUTION WIDTH 13.8 % (11.6-16.5)
[2021-11-19] MEDS: NS 1,000 ML IV 1,000 ML IV SCH ×2 (09:00→21:30)
[2021-11-19] MEDS: LOVENOX INJ 40 MG SYR SC SCH (09:00)
[2021-11-19] MEDS: PEPCID TAB 20 MG PO SCH (09:01)
[2021-11-19] MEDS: PERCOCET TAB 5/325 MG PO PRN ×2 (11:46→22:13)
[2021-11-19] MEDS: ROBITUSSIN DM PO PRN ×2 (11:47→20:36)
[2021-11-19] MEDS ORDERED: PHARMACY COMMENT IV ONE (19:00)
[2021-11-19] MEDS: ZOCOR TAB 20 MG PO SCH (20:36)
[2021-11-19] MEDS: RESTORIL CAP 15 MG PO PRN (20:36)
[2021-11-19] MEDS: INVanz INJ 1 GRAM VIAL 1 G in NS 100 ML IV 100 ML IV SCH (20:36)
[2021-11-20 05:17] LABS: BASOPHILS # (AUTO) 0.2 X10^3/uL (0.0-0.1); BASOPHILS % (AUTO) 1.2 % (0.2-1.0); EOSINOPHILS # (AUTO) 0.4 x10^3/uL (0.0-0.2); EOSINOPHILS % (AUTO) 2.4 % (0.9-2.9); HEMATOCRIT 31.2 % (42.0-54.0); HEMOGLOBIN 10.4 g/dL (13.5-18.0); LYMPHOCYTES # (AUTO) 1.4 X10^3/uL (1.3-2.9); LYMPHOCYTES % (AUTO) 7.6 % (21.0-51.0); MEAN CORPUSCULAR HEMOGLOBIN 29.4 pg (27.0-34.0); MEAN CORPUSCULAR HGB CONC 33.3 g/dL (33.0-35.0); MEAN CORPUSCULAR VOLUME 88.3 fL (80.0-100.0); MEAN PLATELET VOLUME 8.2 fL (7.4-11.0); MONOCYTES # (AUTO) 0.9 x10^3/uL (0.3-0.8); MONOCYTES % (AUTO) 5.1 % (0.0-13.0); NEUTROPHILS # (AUTO) 14.8 x10^3/uL (2.2-4.8); NEUTROPHILS % (AUTO) 83.7 % (42.0-75.0); RED BLOOD COUNT 3.53 X10^6/uL (4.7-6.0); RED CELL DISTRIBUTION WIDTH 14.1 % (11.6-16.5); WHITE BLOOD COUNT 17.7 X10^3/uL (3.6-10.0)
[2021-11-20 05:34] LABS: ALBUMIN 2.1 g/dL (3.4-5.0); CALCIUM 8.4 mg/dL (8.5-10.1); COR CA(FOR HYPOALB) 9.9 mg/dL (8.5-10.1); CREATININE 2.15 mg/dL (0.70-1.30); TOTAL PROTEIN 6.8 g/dL (6.4-8.2)
[2021-11-20] MEDS: XOPENEX 1.25 MG/3 ML NEBULE NEB SCH ×3 (06:05→21:04)
--- NOTE | 2021-11-20 07:19 | RAD ---
HISTORYShortness of breath, leukocytosisSTUDYChest AP [id number]/16/2022FINDINGSTher e is a right IJ line in good position. Heart is mildly enlarged. No congestive heart failure is noted. No acute alveolar infiltrates or pleural effusions are identified. Bony thorax is unremarkable.IMPRESSIONMild cardiomegaly without congestive heart failureLungs clearElectronically signed by: LORENZO FINN (Nov 20, 2021 07:17:57)
--- NOTE | 2021-11-20 07:31 | RAD ---
HISTORYShortness of breathSTUDYChest AP [id number]/2022FINDINGSTher e is a right IJ line in good position. Heart is mildly enlarged. No congestive heart failure is noted. Lungs are mildly hypoinflated. No acute alveolar infiltrates or pleural effusions are identified. Bony thorax is unremarkable.IMPRESSIONMild cardiomegaly without congestive heart failure unchangedLungs mildly hypoinflated but clearElectronically signed by: LORENZO FINN (Nov 20, 2021 07:30:03)
[2021-11-20] MEDS: LOVENOX INJ 40 MG SYR SC SCH (08:02)
[2021-11-20] MEDS: PEPCID TAB 20 MG PO SCH (08:03)
[2021-11-20] MEDS: PERCOCET TAB 5/325 MG PO PRN ×2 (11:23→20:45)
[2021-11-20] MEDS: NS 1,000 ML IV 1,000 ML IV SCH (11:24)
[2021-11-20] MEDS: VANCOMYCIN IV *PREMIX 1 G/200 ML BAG 1 G/200 ML PIGGYBACK IV SCH (13:54)
--- NOTE | 2021-11-20 13:54 | DR.PROGNOT ---
Hospital Progress Notes - Progress Note for Day of: Progress Note Date: 11/20/21 - Chief Complaint Chief Complaint: s/p debridement RT foot wound .. had low grade fever last night .. dressing was changed .. has a new area of blisters and drainage on the 1st metatarsal head . the rest of the wound seems to be getting better . - Past Medical Family Social History Past Med/Fam/Surg Hx: No changes since H&P Allergies: Allergies Penicillins Allergy (Verified 11/13/21 15:58) - Review Of Systems ROS: No change since H&P - Vital Signs Vital Signs: Temperature 99.2 F Pulse Rate [Radial] 114 Pulse Rate 100 Respiratory Rate 30 Blood Pressure [Right Arm] 92/54 Blood Pressure 114/62 O2 Sat by Pulse Oximetry 93 - Physical Exam Oriented: Normal Eyes: Normal Ear: Normal Nose: Normal Throat: Normal Respiratory: Wheezes Cardiovascular: Normal : Normal GI:Auscultation: Normal GI:Palpation: Normal GI: Tenderness: Normal Skin: Other (new area with blisters on the 1st metatarsal head . the rest of the open wound is clean ) Musculoskeletal: Right, Foot, Swelling, Tender Psychiatric: Normal Mood Description: Calm Affect: Normal Speech Pattern: Clear, Appropriate - Laboratory and Diagnostics Result Diagrams: 11/20/21 04:38 11/20/21 04:38 Labs: 11/18/21 14:22 Blood Blood Culture - Preliminary 11/18/21 14:16 Blood Blood Culture - Preliminary 11/13/21 16:24 Blood Blood Culture - Final 11/13/21 16:16 Blood Blood Culture - Final 11/14/21 13:32 Foot - Right Wound Gram Stain - Final 11/14/21 13:32 Foot - Right Wound Culture - Final Methicillin Resis Staph Aureus 11/13/21 16:25 Foot - Right Wound Gram Stain - Final 11/13/21 16:25 Foot - Right Wound Culture - Final Methicillin Resis Staph Aureus Laboratory WBC 17.7 X10^3/uL (3.6-10.0) H 11/20/21 04:38 RBC 3.53 X10^6/uL (4.7-6.0) L 11/20/21 04:38 Hgb 10.4 g/dL (13.5-18.0) L 11/20/21 04:38 Hct 31.2 % (42.0-54.0) L 11/20/21 04:38 MCV 88.3 fL (80.0-100.0) 11/20/21 04:38 MCH 29.4 pg (27.0-34.0) 11/20/21 04:38 MCHC 33.3 g/dL (33.0-35.0) 11/20/21 04:38 RDW 14.1 % (11.6-16.5) 11/20/21 04:38 Plt Count 420 X10^3/uL (150.0-450.0) 11/20/21 04:38 Plt Count Comment Adequate (ADEQUATE) 11/13/21 16:16 MPV 8.2 fL (7.4-11.0) 11/20/21 04:38 Neut % (Auto) 83.7 % (42.0-75.0) H 11/20/21 04:38 Lymph % (Auto) 7.6 % (21.0-51.0) L 11/20/21 04:38 [place] % (Auto) 5.1 % (0.0-13.0) 11/20/21 04:38 Eos % (Auto) 2.4 % (0.9-2.9) 11/20/21 04:38 Baso % (Auto) 1.2 % (0.2-1.0) H 11/20/21 04:38 Neut # (Auto) 14.8 x10^3/uL (2.2-4.8) H 11/20/21 04:38 Lymph # (Auto) 1.4 X10^3/uL (1.3-2.9) 11/20/21 04:38 [place] # (Auto) 0.9 x10^3/uL (0.3-0.8) H 11/20/21 04:38 Eos # (Auto) 0.4 x10^3/uL (0.0-0.2) H 11/20/21 04:38 Baso # (Auto) 0.2 X10^3/uL (0.0-0.1) H 11/20/21 04:38 Absolute Nucleated RBC 0.0 /100WBC 11/20/21 04:38 Total Counted 100 11/13/21 16:16 Neutrophils % (Manual) 92 % (39-76) H 11/13/21 16:16 Lymphocytes % (Manual) 7 % (13-43) L 11/13/21 16:16 Monocytes % (Manual) 1 % (4-9) L 11/13/21 16:16 Plt Morphology Comment Normal (NORMAL) 11/13/21 16:16 RBC Morphology Normal (NORMAL) 11/13/21 16:16 PT 17.7 SECONDS (11.8-14.3) 11/14/21 16:05 INR Target Range - 11/14/21 16:05 INR 1.51 (0.8-1.3) H 11/14/21 16:05 APTT 57.9 SECONDS (22.9-36.5) H 11/14/21 16:05 PTT Comment - 11/14/21 16:05 D-Dimer 3.83 ug/ml (0.0-0.57) H 11/15/21 13:55 Sample Site Lr 11/17/21 13:10 ABG pH 7.420 (7.35-7.45) 11/17/21 13:10 ABG pCO2 40.0 mmHg (35.0-45.0) 11/17/21 13:10 ABG pO2 73.0 mmHg (80.0-100.0) L 11/17/21 13:10 ABG HCO3 25.9 mmol/L (22-26) 11/17/21 13:10 ABG O2 Saturation 95.0 % (90-100) 11/17/21 13:10 ABG Base Excess 1.3 mmol/L (-2.0-2.0) 11/17/21 13:10 Farhan Test Pos 11/17/21 13:10 A-a Gradient 27.0 mmHg 11/17/21 13:10 FiO2 21.0 11/17/21 13:10 Blood Gas Comments Wilmer well cb 11/17/21 13:10 Sodium 134 mmol/L (136-145) L 11/20/21 04:38 Corrected Sodium 134 mmol/L (136-145) L 11/20/21 04:38 Potassium 4.4 mmol/L (3.5-5.1) 11/20/21 04:38 Chloride 100 mmol/L (98-107) 11/20/21 04:38 Carbon Dioxide 24.0 mmol/L (21-32) 11/20/21 04:38 BUN 31 mg/dL (7-18) H 11/20/21 04:38 Creatinine 2.15 mg/dL (0.70-1.30) H 11/20/21 04:38 Est GFR (MDRD) Af Amer 40 (>60) L 11/20/21 04:38 Est GFR (MDRD) Non-Af 33 (>60) L 11/20/21 04:38 Glucose 115 mg/dL (65-99) H 11/20/21 04:38 Lactic Acid 1.5 mmol/L (0.4-2.0) 11/18/21 14:16 Calcium 8.4 mg/dL (8.5-10.1) L 11/20/21 04:38 Corrected Calcium 9.9 mg/dL (8.5-10.1) 11/20/21 04:38 Phosphorus 3.8 mg/dL (2.6-4.7) 11/14/21 16:05 Magnesium 2.0 mg/dL (1.7-2.9) 11/14/21 16:05 Total Bilirubin 0.40 mg/dL (0.2-1.0) 11/20/21 04:38 AST 27 Units/L (15-37) 11/20/21 04:38 ALT 23 Units/L (12-78) 11/20/21 04:38 Alkaline Phosphatase 92 Units/L (46-116) 11/20/21 04:38 Creatine Kinase 165 Units/L (39-308) 11/14/21 05:19 CK-MB (CK-2) < 1.0 ng/mL (0-4.0) 11/14/21 05:19 CK/CKMB % Calc 0.6 % (<4) 11/14/21 05:19 Troponin I High Sens 6.6 ng/L (4.0-60.0) 11/14/21 05:19 C-Reactive Protein 254.40 mg/L (0-3.0) H 11/20/21 04:38 B-Natriuretic Peptide 18.9 pg/mL (0-79) 11/20/21 04:38 Total Protein 6.8 g/dL (6.4-8.2) 11/20/21 04:38 Albumin 2.1 g/dL (3.4-5.0) L 11/20/21 04:38 Globulin 4.7 g/dL (2.5-4.5) H 11/20/21 04:38 Albumin/Globulin Ratio 0.4 Ratio (1.1-2.1) L 11/20/21 04:38 Amylase 32 Units/L (25-115) 11/14/21 16:05 Lipase 174 Units/L (73-393) 11/14/21 16:05 Cortisol 12.3 ug/dL 11/14/21 16:05 Vancomycin Trough 6.5 ug/mL (15-20) L 11/16/21 18:25 Random Vancomycin 11.4 ug/mL 11/19/21 19:30 SARS-CoV-2 (PCR) Negative (NEGATIVE) 11/13/21 18:58 Resp Viral Panel (PCR) See scanned report 11/17/21 10:01 Tissue Pathology To follow 11/17/21 10:00 - Assessment and Plan 2: 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 s/p debridement . same IV ABT and local care . to debride the new blisters on the foot . MRI of the RT foot to r/o steomyelitis .. - Problem Patient Problems: Patient Problems Cellulitis of right foot (Acute) L03.115 Gangrene of right foot (Acute) I96 Pulmonary vascular congestion (Acute) R09.89 Hyperlipidemia (Chronic) E78.5 Septic shock (Acute) A41.9, R65.21
[2021-11-20] MEDS: DILAUDID INJ IVP PRN (16:00)
--- NOTE | 2021-11-20 17:09 | PCM.PROG ---
Progress Note - Progress Note for Day of Date of Exam: 11/20/21 - Subjective Subjective: IS CURRENTLY BEING TREATED FOR CELLULITIS OF THE RIGHT FOOT AND LEG WITH NECROTIC WOUND TO DORSAL ASPECT OF FOOT AND SEPTIC SHOCK. HE IS STATUS POST DEBRIDEMENT OF WOUND BY . THERE WAS APPARENTLY GANGRENOUS CHANGES IN THE DORSAL ASPECT OF THE RIGHT FOOT MEASURING 14X4 CM. HE DID REQUIRE A FEW DOSES OF LASIX OVER THE WEEKEND DUE TO FLUID OVERLOAD. TODAY, HE IS ALERT, LYING IN BED ON MORNING ROUNDS. HE CONTINUES TO COMPLAIN OF SOME SHORTNESS OF BREATH THIS MORNING. HE DENIES PAIN TO RIGHT LOWER EXTREMITY. ON EXAMINATION, HEART IS REGULAR IN RATE AND RHYTHM. BILATERAL LUNGS ARE NOTED WITH SCATTERED WHEEZING THROUGHOUT. HE IS CURRENTLY UTILIZING OXYGEN AT 2 LPM. SATURATIONS HAVE REMAINED IN THE UPPER 90s. ABDOMEN IS ROUND, SOFT, AND NON-TENDER WITH NORMAL BOWEL SOUNDS NOTED IN ALL QUADRANTS. RIGHT FOOT AND LEG HAS A LARGE, BULKY DRESSING THAT CHANGED THIS MORNING. DID REPORT THAT THERE IS AN AREA TO THE GREAT TOE THAT WILL NEED FURTHER DEBRIDEMENT AT THE BEDSIDE. HIS VITALS THIS MORNING ARE: 99.2-105-28-95%-126/64. LABS WERE OBTAINED. WBC 1 7.7, RBC 3.53, HGB 10.4, HCT 31.2, SODIUM 134, POTASSIUM 4.4, BUN 31, CREATININE 2.15, GLUCOSE 115, CALCIUM 8.4, AST 27, ALT 23, ALK PHOS 92, CRP 254.40, TOTAL PROTEIN 6.8, ALBUMIN 2.1. BLOOD CULTURES ARE PENDING. WOUND CULTURES ARE POSITIVE FOR GROWTH OF MRSA. A CHEST XRAY WAS OBTAINED TODAY AND REVEALED: Mild cardiomegaly without congestive heart failure unchanged. Lungs mildly hypoinflated but clear. HE IS CURRENTLY RECEIVING NORMAL SALINE AT 50 ML/HR, ALBUMIN 25% IV DAILY, VANCOMYCIN 1G IV DAILY, INVANZ 1G IV DAILY, LOVENOX 40 SC DAILY, PEPCID 20MG PO DAILY, XOPENEX NEB TX TID, TORADOL 15MG IV Q12H PRN PAIN, DILAUDID 2MG IV Q4H PRN PAIN, PERCOCET 5/325MG PO Q4H PRN, AND ZOCOR 20MG PO HS. DUE TO WORSENING KIDNEY FUNCTION, WE WILL CONTINUE TO ADMINISTER IV FLUIDS AT 75 ML/HR. OTHERWISE, WE PLAN TO FOLLOW-UP WITH AM LABS AND CHEST XRAY AND CONTINUE TO MONITOR. WILL FOLLOW FOR TREATMENT OF WOUND. TIME SPENT ON CLINICAL ASSESSMENT, REVIEWING LABS AND IMAGING, DECISION MAKING, AND DOCUMENTATION GREATER THAN 45 MINUTES. - Past Medical Family Social History Past Med/Fam/Surg Hx: No changes since H&P Allergies: Allergies Penicillins Allergy (Verified 11/13/21 15:58) - Review of Systems ROS: No change since H&P - Vital Signs and I&O's Vital Signs: Temperature 99.2 F Pulse Rate [Radial] 114 Pulse Rate 109 Respiratory Rate 26 Blood Pressure [Right Arm] 92/54 Blood Pressure 137/78 O2 Sat by Pulse Oximetry 91 Intake and Output: Intake & Output 11/18/21 11/19/21 11/20/21 11/21/21 11:59 11:59 11:59 11:59 Intake Total 1493 / 1493 1515 / 1515 4049 / 4049 Output Total 4450 / 4450 1850 / 1850 1550 / 1550 Balance -2957 / -2957 -335 / -335 2499 / 2499 - Physical Exam Oriented: Normal Eyes: Normal Ear: Normal Nose: Normal Throat: Normal Respiratory: Wheezes Cardiovascular: Normal : Normal Auscultation: Bowel Sounds: Normal Palpation: Normal Tenderness: Normal Skin: Other (new area with blisters on the 1st metatarsal head . the rest of the open wound is clean ) Musculoskeletal: Right, Foot, Swelling, Tender Psychiatric: Normal Mood Description: Calm Affect: Normal Speech Pattern: Clear, Appropriate - Laboratory and Diagnostics Result Diagrams: 11/20/21 04:38 11/20/21 04:38 Labs: 11/18/21 14:22 Blood Blood Culture - Preliminary 11/18/21 14:16 Blood Blood Culture - Preliminary 11/13/21 16:24 Blood Blood Culture - Final 11/13/21 16:16 Blood Blood Culture - Final 11/14/21 13:32 Foot - Right Wound Gram Stain - Final 11/14/21 13:32 Foot - Right Wound Culture - Final Methicillin Resis Staph Aureus 11/13/21 16:25 Foot - Right Wound Gram Stain - Final 11/13/21 16:25 Foot - Right Wound Culture - Final Methicillin Resis Staph Aureus Laboratory WBC 17.7 X10^3/uL (3.6-10.0) H 11/20/21 04:38 RBC 3.53 X10^6/uL (4.7-6.0) L 11/20/21 04:38 Hgb 10.4 g/dL (13.5-18.0) L 11/20/21 04:38 Hct 31.2 % (42.0-54.0) L 11/20/21 04:38 MCV 88.3 fL (80.0-100.0) 11/20/21 04:38 MCH 29.4 pg (27.0-34.0) 11/20/21 04:38 MCHC 33.3 g/dL (33.0-35.0) 11/20/21 04:38 RDW 14.1 % (11.6-16.5) 11/20/21 04:38 Plt Count 420 X10^3/uL (150.0-450.0) 11/20/21 04:38 Plt Count Comment Adequate (ADEQUATE) 11/13/21 16:16 MPV 8.2 fL (7.4-11.0) 11/20/21 04:38 Neut % (Auto) 83.7 % (42.0-75.0) H 11/20/21 04:38 Lymph % (Auto) 7.6 % (21.0-51.0) L 11/20/21 04:38 [place] % (Auto) 5.1 % (0.0-13.0) 11/20/21 04:38 Eos % (Auto) 2.4 % (0.9-2.9) 11/20/21 04:38 Baso % (Auto) 1.2 % (0.2-1.0) H 11/20/21 04:38 Neut # (Auto) 14.8 x10^3/uL (2.2-4.8) H 11/20/21 04:38 Lymph # (Auto) 1.4 X10^3/uL (1.3-2.9) 11/20/21 04:38 [place] # (Auto) 0.9 x10^3/uL (0.3-0.8) H 11/20/21 04:38 Eos # (Auto) 0.4 x10^3/uL (0.0-0.2) H 11/20/21 04:38 Baso # (Auto) 0.2 X10^3/uL (0.0-0.1) H 11/20/21 04:38 Absolute Nucleated RBC 0.0 /100WBC 11/20/21 04:38 Total Counted 100 11/13/21 16:16 Neutrophils % (Manual) 92 % (39-76) H 11/13/21 16:16 Lymphocytes % (Manual) 7 % (13-43) L 11/13/21 16:16 Monocytes % (Manual) 1 % (4-9) L 11/13/21 16:16 Plt Morphology Comment Normal (NORMAL) 11/13/21 16:16 RBC Morphology Normal (NORMAL) 11/13/21 16:16 PT 17.7 SECONDS (11.8-14.3) 11/14/21 16:05 INR Target Range - 11/14/21 16:05 INR 1.51 (0.8-1.3) H 11/14/21 16:05 APTT 57.9 SECONDS (22.9-36.5) H 11/14/21 16:05 PTT Comment - 11/14/21 16:05 D-Dimer 3.83 ug/ml (0.0-0.57) H 11/15/21 13:55 Sample Site Lr 11/17/21 13:10 ABG pH 7.420 (7.35-7.45) 11/17/21 13:10 ABG pCO2 40.0 mmHg (35.0-45.0) 11/17/21 13:10 ABG pO2 73.0 mmHg (80.0-100.0) L 11/17/21 13:10 ABG HCO3 25.9 mmol/L (22-26) 11/17/21 13:10 ABG O2 Saturation 95.0 % (90-100) 11/17/21 13:10 ABG Base Excess 1.3 mmol/L (-2.0-2.0) 11/17/21 13:10 Farhan Test Pos 11/17/21 13:10 A-a Gradient 27.0 mmHg 11/17/21 13:10 FiO2 21.0 11/17/21 13:10 Blood Gas Comments Wilmer well cb 11/17/21 13:10 Sodium 134 mmol/L (136-145) L 11/20/21 04:38 Corrected Sodium 134 mmol/L (136-145) L 11/20/21 04:38 Potassium 4.4 mmol/L (3.5-5.1) 11/20/21 04:38 Chloride 100 mmol/L (98-107) 11/20/21 04:38 Carbon Dioxide 24.0 mmol/L (21-32) 11/20/21 04:38 BUN 31 mg/dL (7-18) H 11/20/21 04:38 Creatinine 2.15 mg/dL (0.70-1.30) H 11/20/21 04:38 Est GFR (MDRD) Af Amer 40 (>60) L 11/20/21 04:38 Est GFR (MDRD) Non-Af 33 (>60) L 11/20/21 04:38 Glucose 115 mg/dL (65-99) H 11/20/21 04:38 Lactic Acid 1.5 mmol/L (0.4-2.0) 11/18/21 14:16 Calcium 8.4 mg/dL (8.5-10.1) L 11/20/21 04:38 Corrected Calcium 9.9 mg/dL (8.5-10.1) 11/20/21 04:38 Phosphorus 3.8 mg/dL (2.6-4.7) 11/14/21 16:05 Magnesium 2.0 mg/dL (1.7-2.9) 11/14/21 16:05 Total Bilirubin 0.40 mg/dL (0.2-1.0) 11/20/21 04:38 AST 27 Units/L (15-37) 11/20/21 04:38 ALT 23 Units/L (12-78) 11/20/21 04:38 Alkaline Phosphatase 92 Units/L (46-116) 11/20/21 04:38 Creatine Kinase 165 Units/L (39-308) 11/14/21 05:19 CK-MB (CK-2) < 1.0 ng/mL (0-4.0) 11/14/21 05:19 CK/CKMB % Calc 0.6 % (<4) 11/14/21 05:19 Troponin I High Sens 6.6 ng/L (4.0-60.0) 11/14/21 05:19 C-Reactive Protein 254.40 mg/L (0-3.0) H 11/20/21 04:38 B-Natriuretic Peptide 18.9 pg/mL (0-79) 11/20/21 04:38 Total Protein 6.8 g/dL (6.4-8.2) 11/20/21 04:38 Albumin 2.1 g/dL (3.4-5.0) L 11/20/21 04:38 Globulin 4.7 g/dL (2.5-4.5) H 11/20/21 04:38 Albumin/Globulin Ratio 0.4 Ratio (1.1-2.1) L 11/20/21 04:38 Amylase 32 Units/L (25-115) 11/14/21 16:05 Lipase 174 Units/L (73-393) 11/14/21 16:05 Cortisol 12.3 ug/dL 11/14/21 16:05 Vancomycin Trough 6.5 ug/mL (15-20) L 11/16/21 18:25 Random Vancomycin 11.4 ug/mL 11/19/21 19:30 SARS-CoV-2 (PCR) Negative (NEGATIVE) 11/13/21 18:58 Resp Viral Panel (PCR) See scanned report 11/17/21 10:01 Tissue Pathology To follow 11/17/21 10:00 - Plan (1) Cellulitis of right foot Status: Acute Plan: NORMAL SALINE AT 50 ML/HR, ALBUMIN 25% IV DAILY, VANCOMYCIN 1G IV DAILY, INVANZ 1G IV DAILY, LOVENOX, PEPCID, TORADOL 15MG IV Q12H PRN PAIN, DILAUDID 2MG IV Q4H PRN PAIN, PERCOCET 5/325MG PO Q4H PRN, AND ZOCOR 20MG PO HS. (2) Gangrene of right foot Status: Acute (3) Septic shock Status: Acute (4) Pulmonary vascular congestion Status: Acute Plan: LASIX 20MG IV X 1 (5) Hyperlipidemia Status: Chronic Qualifiers: Hyperlipidemia type: mixed hyperlipidemia Qualified Code(s): E78.2 - Mixed hyperlipidemia
[2021-11-20] MEDS: INVanz INJ 1 GRAM VIAL 1 G in NS 100 ML IV 100 ML IV SCH (20:45)
[2021-11-20] MEDS: ZOCOR TAB 20 MG PO SCH (20:45)
[2021-11-20] MEDS: RESTORIL CAP 15 MG PO PRN (20:46)
[2021-11-20] MEDS: ROBITUSSIN DM PO PRN (20:46)
[2021-11-20] MEDS: TYLENOL 325 MG TAB PO PRN (20:54)
[2021-11-21] MEDS: TYLENOL 325 MG TAB PO PRN ×3 (04:29→21:10)
[2021-11-21] MEDS: NS 1,000 ML IV 1,000 ML IV SCH ×3 (04:29→15:06)
[2021-11-21 05:03] LABS: BASOPHILS # (AUTO) 0.1 X10^3/uL (0.0-0.1); BASOPHILS % (AUTO) 0.6 % (0.2-1.0); EOSINOPHILS # (AUTO) 0.5 x10^3/uL (0.0-0.2); EOSINOPHILS % (AUTO) 2.9 % (0.9-2.9); HEMATOCRIT 31.1 % (42.0-54.0); HEMOGLOBIN 10.4 g/dL (13.5-18.0); LYMPHOCYTES # (AUTO) 1.4 X10^3/uL (1.3-2.9); LYMPHOCYTES % (AUTO) 8.1 % (21.0-51.0); MEAN CORPUSCULAR HEMOGLOBIN 29.8 pg (27.0-34.0); MEAN CORPUSCULAR HGB CONC 33.4 g/dL (33.0-35.0); MEAN CORPUSCULAR VOLUME 89.2 fL (80.0-100.0); MEAN PLATELET VOLUME 8.1 fL (7.4-11.0); MONOCYTES # (AUTO) 0.9 x10^3/uL (0.3-0.8); NEUTROPHILS # (AUTO) 14.3 x10^3/uL (2.2-4.8); NEUTROPHILS % (AUTO) 83.4 % (42.0-75.0); RED BLOOD COUNT 3.49 X10^6/uL (4.7-6.0); RED CELL DISTRIBUTION WIDTH 14.4 % (11.6-16.5); WHITE BLOOD COUNT 17.2 X10^3/uL (3.6-10.0)
[2021-11-21 05:14] LABS: ALANINE AMINOTRANSFERASE 28 Units/L (12-78); ALBUMIN 1.9 g/dL (3.4-5.0); ALKALINE PHOSPHATASE 84 Units/L (46-116); ASPARTATE AMINO TRANSFERASE 31 Units/L (15-37); BLOOD UREA NITROGEN 39 mg/dL (7-18); CALCIUM 8.4 mg/dL (8.5-10.1); CARBON DIOXIDE 25.4 mmol/L (21-32); CHLORIDE 102 mmol/L (98-107); COR CA(FOR HYPOALB) 10.1 mg/dL (8.5-10.1); CREATININE 2.24 mg/dL (0.70-1.30); SODIUM 135 mmol/L (136-145); TOTAL PROTEIN 6.7 g/dL (6.4-8.2); eGFR NON BLACK RACES 31 (>60)
--- NOTE | 2021-11-21 06:05 | RAD ---
HISTORYShortness of breathSTUDYChest AP [id number] e is a right IJ line in good position. The heart is enlarged. No congestive heart failure is noted. The juan carlos are normal. Lungs remain mildly hypoinflated but free of acute infiltrates. No pleural effusion is identified. Bony thorax is unremarkable.IMPRESSIONLungs remain mildly hypoinflated but free of infiltratesCardiomegaly without congestive heart failureElectronically signed by: LORENZO FINN (Nov 21, 2021 06:04:01)
[2021-11-21] MEDS: XOPENEX 1.25 MG/3 ML NEBULE NEB SCH ×3 (06:07→20:20)
[2021-11-21] MEDS: VANCOMYCIN IV *PREMIX 1 G/200 ML BAG 1 G/200 ML PIGGYBACK IV SCH (08:56)
[2021-11-21] MEDS: PEPCID TAB 20 MG PO SCH (08:56)
[2021-11-21] MEDS: LOVENOX INJ 40 MG SYR SC SCH (08:56)
[2021-11-21] MEDS ORDERED: VALIUM PO NR (10:04)
[2021-11-21] MEDS: NYSTATIN POWDER TOP SCH ×2 (11:21→21:09)
[2021-11-21] MEDS: BACTRIM DS TAB PO SCH ×2 (11:21→21:09)
[2021-11-21 12:19] LABS: RHEUMATOID FACTOR NEGATIVE (NEGATIVE)
--- NOTE | 2021-11-21 14:41 | DR.PROGNOT ---
Hospital Progress Notes - Progress Note for Day of: Progress Note Date: 11/21/21 - Chief Complaint Chief Complaint: s/p debridement RT foot wound .. had low grade fever last night .. dressing was changed .. the area above the 1st metatarsal is still draining .. the rest of the wound seems to be getting better . the foot is warm with less erythema . - Past Medical Family Social History Past Med/Fam/Surg Hx: No changes since H&P Allergies: Allergies Penicillins Allergy (Verified 11/13/21 15:58) - Review Of Systems ROS: No change since H&P - Vital Signs Vital Signs: Temperature 99.2 F Pulse Rate [Radial] 114 Pulse Rate 92 Respiratory Rate 29 Blood Pressure [Right Arm] 92/54 Blood Pressure 103/58 O2 Sat by Pulse Oximetry 97 - Physical Exam Oriented: Normal Eyes: Normal Ear: Normal Nose: Normal Throat: Normal Respiratory: Wheezes Cardiovascular: Normal : Normal GI:Auscultation: Normal GI:Palpation: Normal GI: Tenderness: Normal Skin: Other (new area with blisters on the 1st metatarsal head . the rest of the open wound is clean ) Musculoskeletal: Right, Foot, Swelling, Tender Psychiatric: Normal Mood Description: Calm Affect: Normal Speech Pattern: Clear, Appropriate - Laboratory and Diagnostics Result Diagrams: 11/21/21 04:15 11/21/21 04:51 Labs: 11/18/21 14:22 Blood Blood Culture - Preliminary 11/18/21 14:16 Blood Blood Culture - Preliminary 11/13/21 16:24 Blood Blood Culture - Final 11/13/21 16:16 Blood Blood Culture - Final 11/14/21 13:32 Foot - Right Wound Gram Stain - Final 11/14/21 13:32 Foot - Right Wound Culture - Final Methicillin Resis Staph Aureus 11/13/21 16:25 Foot - Right Wound Gram Stain - Final 11/13/21 16:25 Foot - Right Wound Culture - Final Methicillin Resis Staph Aureus Laboratory WBC 17.2 X10^3/uL (3.6-10.0) H 11/21/21 04:15 RBC 3.49 X10^6/uL (4.7-6.0) L 11/21/21 04:15 Hgb 10.4 g/dL (13.5-18.0) L 11/21/21 04:15 Hct 31.1 % (42.0-54.0) L 11/21/21 04:15 MCV 89.2 fL (80.0-100.0) 11/21/21 04:15 MCH 29.8 pg (27.0-34.0) 11/21/21 04:15 MCHC 33.4 g/dL (33.0-35.0) 11/21/21 04:15 RDW 14.4 % (11.6-16.5) 11/21/21 04:15 Plt Count 405 X10^3/uL (150.0-450.0) 11/21/21 04:15 Plt Count Comment Adequate (ADEQUATE) 11/13/21 16:16 MPV 8.1 fL (7.4-11.0) 11/21/21 04:15 Neut % (Auto) 83.4 % (42.0-75.0) H 11/21/21 04:15 Lymph % (Auto) 8.1 % (21.0-51.0) L 11/21/21 04:15 [place] % (Auto) 5.0 % (0.0-13.0) 11/21/21 04:15 Eos % (Auto) 2.9 % (0.9-2.9) 11/21/21 04:15 Baso % (Auto) 0.6 % (0.2-1.0) 11/21/21 04:15 Neut # (Auto) 14.3 x10^3/uL (2.2-4.8) H 11/21/21 04:15 Lymph # (Auto) 1.4 X10^3/uL (1.3-2.9) 11/21/21 04:15 [place] # (Auto) 0.9 x10^3/uL (0.3-0.8) H 11/21/21 04:15 Eos # (Auto) 0.5 x10^3/uL (0.0-0.2) H 11/21/21 04:15 Baso # (Auto) 0.1 X10^3/uL (0.0-0.1) 11/21/21 04:15 Absolute Nucleated RBC 0.0 /100WBC 11/21/21 04:15 Total Counted 100 11/13/21 16:16 Neutrophils % (Manual) 92 % (39-76) H 11/13/21 16:16 Lymphocytes % (Manual) 7 % (13-43) L 11/13/21 16:16 Monocytes % (Manual) 1 % (4-9) L 11/13/21 16:16 Plt Morphology Comment Normal (NORMAL) 11/13/21 16:16 RBC Morphology Normal (NORMAL) 11/13/21 16:16 PT 17.7 SECONDS (11.8-14.3) 11/14/21 16:05 INR Target Range - 11/14/21 16:05 INR 1.51 (0.8-1.3) H 11/14/21 16:05 APTT 57.9 SECONDS (22.9-36.5) H 11/14/21 16:05 PTT Comment - 11/14/21 16:05 D-Dimer 3.83 ug/ml (0.0-0.57) H 11/15/21 13:55 Sample Site Lr 11/17/21 13:10 ABG pH 7.420 (7.35-7.45) 11/17/21 13:10 ABG pCO2 40.0 mmHg (35.0-45.0) 11/17/21 13:10 ABG pO2 73.0 mmHg (80.0-100.0) L 11/17/21 13:10 ABG HCO3 25.9 mmol/L (22-26) 11/17/21 13:10 ABG O2 Saturation 95.0 % (90-100) 11/17/21 13:10 ABG Base Excess 1.3 mmol/L (-2.0-2.0) 11/17/21 13:10 Farhan Test Pos 11/17/21 13:10 A-a Gradient 27.0 mmHg 11/17/21 13:10 FiO2 21.0 11/17/21 13:10 Blood Gas Comments Wilmer well cb 11/17/21 13:10 Sodium 135 mmol/L (136-145) L 11/21/21 04:51 Corrected Sodium TNP 11/21/21 04:51 Potassium 4.6 mmol/L (3.5-5.1) 11/21/21 04:51 Chloride 102 mmol/L (98-107) 11/21/21 04:51 Carbon Dioxide 25.4 mmol/L (21-32) 11/21/21 04:51 BUN 39 mg/dL (7-18) H 11/21/21 04:51 Creatinine 2.24 mg/dL (0.70-1.30) H 11/21/21 04:51 Est GFR (MDRD) Af Amer 38 (>60) L 11/21/21 04:51 Est GFR (MDRD) Non-Af 31 (>60) L 11/21/21 04:51 Glucose 106 mg/dL (65-99) H 11/21/21 04:51 Lactic Acid 1.5 mmol/L (0.4-2.0) 11/18/21 14:16 Uric Acid 12.8 mg/dL (3.5-7.2) H 11/21/21 04:15 Calcium 8.4 mg/dL (8.5-10.1) L 11/21/21 04:51 Corrected Calcium 10.1 mg/dL (8.5-10.1) 11/21/21 04:51 Phosphorus 3.8 mg/dL (2.6-4.7) 11/14/21 16:05 Magnesium 2.0 mg/dL (1.7-2.9) 11/14/21 16:05 Total Bilirubin 0.30 mg/dL (0.2-1.0) 11/21/21 04:51 AST 31 Units/L (15-37) 11/21/21 04:51 ALT 28 Units/L (12-78) 11/21/21 04:51 Alkaline Phosphatase 84 Units/L (46-116) 11/21/21 04:51 Creatine Kinase 165 Units/L (39-308) 11/14/21 05:19 CK-MB (CK-2) < 1.0 ng/mL (0-4.0) 11/14/21 05:19 CK/CKMB % Calc 0.6 % (<4) 11/14/21 05:19 Troponin I High Sens 6.6 ng/L (4.0-60.0) 11/14/21 05:19 C-Reactive Protein 251.20 mg/L (0-3.0) H 11/21/21 04:51 B-Natriuretic Peptide 18.9 pg/mL (0-79) 11/20/21 04:38 Total Protein 6.7 g/dL (6.4-8.2) 11/21/21 04:51 Albumin 1.9 g/dL (3.4-5.0) L 11/21/21 04:51 Globulin 4.8 g/dL (2.5-4.5) H 11/21/21 04:51 Albumin/Globulin Ratio 0.4 Ratio (1.1-2.1) L 11/21/21 04:51 Amylase 32 Units/L (25-115) 11/14/21 16:05 Lipase 174 Units/L (73-393) 11/14/21 16:05 Cortisol 12.3 ug/dL 11/14/21 16:05 Vancomycin Trough 6.5 ug/mL (15-20) L 11/16/21 18:25 Random Vancomycin 11.4 ug/mL 11/19/21 19:30 Rheumatoid Factor Negative (NEGATIVE) 11/21/21 04:15 SARS-CoV-2 (PCR) Negative (NEGATIVE) 11/13/21 18:58 Resp Viral Panel (PCR) See scanned report 11/17/21 10:01 Tissue Pathology To follow 11/17/21 10:00 - Assessment and Plan 2: 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 s/p debridement . same IV ABT and local care . MRI of the RT foot to r/o steomyelitis .. - Problem Patient Problems: Patient Problems Cellulitis of right foot (Acute) L03.115 Gangrene of right foot (Acute) I96 Pulmonary vascular congestion (Acute) R09.89 Hyperlipidemia (Chronic) E78.5 Septic shock (Acute) A41.9, R65.21
--- NOTE | 2021-11-21 16:29 | MRI ---
HISTORYRIGHT FOOT WOUND, CELLULITISSTUDYMRI right foot without IV contrastCOMPARISONNoneTECHNIQUEMRI of the footwithout IV contrast is performed using standard sequences in multiple planes. Patient was unable to have IV contrast due to poor renal function.FINDINGSThere appears to be a large skin ulceration in the dorsum of the forefoot extending laterally into the plantar aspect near the 5th MTP joint. There is diffuse soft tissue edema in the foot that is probable cellulitis. Motion limits several of the series. There is concern for edema within the distal head and shaft of the 5th metatarsal that could be osteomyelitis. No soft tissue abscess is seen.Arthritic changes are seen in the MTP joints, greatest in the 1st MTP joint. There appears to be a subchondral geode in the medial aspect of the distal head of the 1st metatarsal measuring 2.1 cm in diameter. Possible medullary infarct is seen in the proximal aspect of the 1st proximal phalanx.IMPRESSIONCellulitis and large skin ulcer are seen without evidence of soft tissue abscess.Probable osteomyelitis is seen within the distal head and shaft of the 5th metatarsal.Electronically signed by: Travis Herrmann (Nov 21, 2021 16:27:31)
[2021-11-21] MEDS: MILK OF MAGNESIA PO SCH (21:09)
[2021-11-21] MEDS: PERCOCET TAB 5/325 MG PO PRN (21:10)
[2021-11-21] MEDS: ZOCOR TAB 20 MG PO SCH (21:10)
[2021-11-21] MEDS: ROBITUSSIN DM PO PRN (21:11)
[2021-11-21] MEDS: RESTORIL CAP 15 MG PO PRN (21:11)
[2021-11-22 01:45] LABS: BASOPHILS # (AUTO) 0.1 X10^3/uL (0.0-0.1); BASOPHILS % (AUTO) 0.8 % (0.2-1.0); EOSINOPHILS # (AUTO) 0.5 x10^3/uL (0.0-0.2); EOSINOPHILS % (AUTO) 3.1 % (0.9-2.9); HEMATOCRIT 27.7 % (42.0-54.0); HEMOGLOBIN 9.4 g/dL (13.5-18.0); LYMPHOCYTES # (AUTO) 1.3 X10^3/uL (1.3-2.9); LYMPHOCYTES % (AUTO) 8.6 % (21.0-51.0); MEAN CORPUSCULAR HEMOGLOBIN 30.1 pg (27.0-34.0); MEAN CORPUSCULAR VOLUME 88.4 fL (80.0-100.0); MEAN PLATELET VOLUME 8.1 fL (7.4-11.0); MONOCYTES % (AUTO) 6.4 % (0.0-13.0); NEUTROPHILS # (AUTO) 12.4 x10^3/uL (2.2-4.8); NEUTROPHILS % (AUTO) 81.1 % (42.0-75.0); RED BLOOD COUNT 3.14 X10^6/uL (4.7-6.0); RED CELL DISTRIBUTION WIDTH 14.4 % (11.6-16.5); WHITE BLOOD COUNT 15.2 X10^3/uL (3.6-10.0)
[2021-11-22 01:55] LABS: ALBUMIN 1.8 g/dL (3.4-5.0); CALCIUM 7.9 mg/dL (8.5-10.1); CARBON DIOXIDE 24.6 mmol/L (21-32); COR CA(FOR HYPOALB) 9.7 mg/dL (8.5-10.1); CREATININE 2.37 mg/dL (0.70-1.30); TOTAL PROTEIN 6.3 g/dL (6.4-8.2)
[2021-11-22 02:04] LABS: CREATININE 2.33 mg/dL (0.70-1.30); VANCOMYCIN,TROUGH 14.9 ug/mL (15-20)
[2021-11-22] MEDS: VANCOMYCIN IV *PREMIX 1 G/200 ML BAG 1 G/200 ML PIGGYBACK IV SCH (02:18)
[2021-11-22] MEDS: XOPENEX 1.25 MG/3 ML NEBULE NEB SCH ×2 (05:07→21:14)
[2021-11-22] MEDS: NS 1,000 ML IV 1,000 ML IV SCH ×3 (05:38→19:08)
[2021-11-22] MEDS: TYLENOL 325 MG TAB PO PRN ×2 (09:41→20:30)
[2021-11-22] MEDS: ROBITUSSIN DM PO PRN (09:43)
[2021-11-22] MEDS: LOVENOX INJ 40 MG SYR SC SCH (09:43)
[2021-11-22] MEDS ORDERED: XYLOCAINE 1 % (PLAIN) ONE (09:44)
[2021-11-22] MEDS: PEPCID TAB 20 MG PO SCH (09:45)
[2021-11-22 10:33] VITALS: BMI 32.5
[2021-11-22] MEDS: ALBUMIN HUMAN 25%- 100 ML 100 ML IV SCH (10:40)
[2021-11-22] MEDS: NYSTATIN POWDER TOP SCH ×2 (10:40→20:32)
[2021-11-22] MEDS: RIFADIN PO SCH ×2 (10:41→20:32)
[2021-11-22] MEDS: BACTRIM DS TAB PO SCH ×2 (10:41→20:31)
[2021-11-22] MEDS ORDERED: XYLOCAINE 1 % (PLAIN) IM ONE (10:43)
--- NOTE | 2021-11-22 10:44 | PCM.PROG ---
Progress Note - Progress Note for Day of Date of Exam: 11/21/21 - Subjective Subjective: IS CURRENTLY BEING TREATED FOR CELLULITIS OF THE RIGHT FOOT AND LEG WITH NECROTIC WOUND TO DORSAL ASPECT OF FOOT AND SEPTIC SHOCK. WOUND CULTURES WERE POSITIVE FOR GROWTH OF MRSA. HE IS STATUS POST DEBRIDEMENT OF WOUND BY . THERE WAS APPARENTLY GANGRENOUS CHANGES IN THE DORSAL ASPECT OF THE RIGHT FOOT MEASURING 14X4 CM. TODAY, HE IS ALERT, LYING IN BED ON MORNING ROUNDS. HE COMPLAINS OF PAIN TO THE RIGHT ELBOW THIS MORNING. HE DENIES PAIN TO RIGHT LOWER EXTREMITY. ON EXAMINATION, HEART IS REGULAR IN RATE AND RHYTHM. BILATERAL LUNGS ARE NOTED WITH DIMINISHED LUNG SOUNDS THROUGHOUT. HE IS CURRENTLY UTILIZING OXYGEN AT 2 LPM. SATURATIONS HAVE REMAINED IN THE UPPER 90s. ABDOMEN IS ROUND, SOFT, AND NON-TENDER WITH NORMAL BOWEL SOUNDS NOTED IN ALL QUADRANTS. RIGHT FOOT IS OPEN TO AIR. THERE CONTINUES TO BE ERYTHEMA, EDEMA, AND THERE ARE MULTIPLE WOUNDS THAT HAVE BEEN DEBRIDED. THERE IS WHAT APPEARS TO BE A LARGE RHEUMATOID NODULE TO THE LEFT ELBOW. NODULE HAS PURULENT DRAINAGE. THERE IS ERYTHEMA AND EDEMA TO SITE. HIS VITALS THIS MORNING ARE: 99.8-92-28-92%-98/55. LABS WERE OBTAINED. WBC 17.2, RBC 3.49, HGB 10.4, HCT 31.1, SODIUM 135, POTASSIUM 4.6, CHLORIDE 102, BUN 39, CREATININE 2.24, GLUCOSE 106, CALCIUM 8.4, CRP 251.20, TOTAL PROTEIN 6.7, ALBUMIN 1.9. BLOOD CULTURES ARE PENDING. WOUND CULTURES ARE POSITIVE FOR GROWTH OF MRSA. A CHEST XRAY WAS OBTAINED TODAY AND REVEALED: Mild cardiomegaly without congestive heart failure unchanged. Lungs mildly hypoinflated but clear. HE IS CURRENTLY RECEIVING NORMAL SALINE AT 50 ML/HR, ALBUMIN 25% IV DAILY, VANCOMYCIN 1G IV DAILY, INVANZ 1G IV DAILY, LOVENOX 40 SC DAILY, PEPCID 20MG PO DAILY, XOPENEX NEB TX TID, TORADOL 15MG IV Q12H PRN PAIN, DILAUDID 2MG IV Q4H PRN PAIN, PERCOCET 5/325MG PO Q4H PRN, AND ZOCOR 20MG PO HS. TODAY, WE WILL INCREASE IV FLUIDS TO 75 ML/HR. WE WILL ADD BACTRIM DS 1 TABLET TWICE A DAY AND DISCONTINUE THE INVANZ. WE WILL OBTAIN A LOWER EXTREMITY MRI TO RULE OUT OSTEOMYELITIS. WE WILL ALSO OBTAIN A RHEUMATOID FACTOR, LUPUS PANEL, AND URIC ACID. OTHERWISE, WE PLAN TO FOLLOW-UP WITH AM LABS AND CHEST XRAY AND CONTINUE TO MONITOR. WILL FOLLOW FOR TREATMENT OF WOUND AND WE WILL ALSO HAVE HIM ASSESS RIGHT ELBOW FOR POSSIBLE I&D. TIME SPENT ON CLINICAL ASSESSMENT, REVIEWING LABS AND IMAGING, DECISION MAKING, AND DOCUMENTATION GREATER THAN 45 MINUTES. - Past Medical Family Social History Past Med/Fam/Surg Hx: No changes since H&P Allergies: Allergies Penicillins Allergy (Verified 11/13/21 15:58) - Review of Systems ROS: No change since H&P - Vital Signs and I&O's Vital Signs: Temperature 97.9 F Pulse Rate [Radial] 114 Pulse Rate 85 Respiratory Rate 24 Blood Pressure [Right Arm] 92/54 Blood Pressure 134/61 O2 Sat by Pulse Oximetry 98 Intake and Output: Intake & Output 11/19/21 11/20/21 11/21/21 11/22/21 11:59 11:59 11:59 11:59 Intake Total 1515 / 1515 4049 / 4049 2931 / 2931 2412 / 2412 Output Total 1850 / 1850 1550 / 1550 950 / 950 900 / 900 Balance -335 / -335 2499 / 2499 1980 1512 / 1512 - Physical Exam Oriented: Normal Eyes: Normal Ear: Normal Nose: Normal Throat: Normal Respiratory: Wheezes Cardiovascular: Normal : Normal Auscultation: Bowel Sounds: Normal Palpation: Normal Tenderness: Normal Skin: Wound (RIGHT ELBOW WOUND, POSSIBLY INFECTED RHEUMATOID NODULE ), Other (new area with blisters on the 1st metatarsal head . the rest of the open wound is clean ) Musculoskeletal: Right, Foot, Swelling, Tender Psychiatric: Normal Mood Description: Calm Affect: Normal Speech Pattern: Clear, Appropriate - Laboratory and Diagnostics Result Diagrams: 11/22/21 01:11 11/22/21 01:11 Labs: 11/18/21 14:22 Blood Blood Culture - Preliminary 11/18/21 14:16 Blood Blood Culture - Preliminary 11/13/21 16:24 Blood Blood Culture - Final 11/13/21 16:16 Blood Blood Culture - Final 11/14/21 13:32 Foot - Right Wound Gram Stain - Final 11/14/21 13:32 Foot - Right Wound Culture - Final Methicillin Resis Staph Aureus 11/13/21 16:25 Foot - Right Wound Gram Stain - Final 11/13/21 16:25 Foot - Right Wound Culture - Final Methicillin Resis Staph Aureus Laboratory WBC 15.2 X10^3/uL (3.6-10.0) H 11/22/21 01:11 RBC 3.14 X10^6/uL (4.7-6.0) L 11/22/21 01:11 Hgb 9.4 g/dL (13.5-18.0) L 11/22/21 01:11 Hct 27.7 % (42.0-54.0) L 11/22/21 01:11 MCV 88.4 fL (80.0-100.0) 11/22/21 01:11 MCH 30.1 pg (27.0-34.0) 11/22/21 01:11 MCHC 34.0 g/dL (33.0-35.0) 11/22/21 01:11 RDW 14.4 % (11.6-16.5) 11/22/21 01:11 Plt Count 405 X10^3/uL (150.0-450.0) 11/22/21 01:11 Plt Count Comment Adequate (ADEQUATE) 11/13/21 16:16 MPV 8.1 fL (7.4-11.0) 11/22/21 01:11 Neut % (Auto) 81.1 % (42.0-75.0) H 11/22/21 01:11 Lymph % (Auto) 8.6 % (21.0-51.0) L 11/22/21 01:11 [place] % (Auto) 6.4 % (0.0-13.0) 11/22/21 01:11 Eos % (Auto) 3.1 % (0.9-2.9) H 11/22/21 01:11 Baso % (Auto) 0.8 % (0.2-1.0) 11/22/21 01:11 Neut # (Auto) 12.4 x10^3/uL (2.2-4.8) H 11/22/21 01:11 Lymph # (Auto) 1.3 X10^3/uL (1.3-2.9) 11/22/21 01:11 [place] # (Auto) 1.0 x10^3/uL (0.3-0.8) H 11/22/21 01:11 Eos # (Auto) 0.5 x10^3/uL (0.0-0.2) H 11/22/21 01:11 Baso # (Auto) 0.1 X10^3/uL (0.0-0.1) 11/22/21 01:11 Absolute Nucleated RBC 0.1 /100WBC 11/22/21 01:11 Total Counted 100 11/13/21 16:16 Neutrophils % (Manual) 92 % (39-76) H 11/13/21 16:16 Lymphocytes % (Manual) 7 % (13-43) L 11/13/21 16:16 Monocytes % (Manual) 1 % (4-9) L 11/13/21 16:16 Plt Morphology Comment Normal (NORMAL) 11/13/21 16:16 RBC Morphology Normal (NORMAL) 11/13/21 16:16 PT 17.7 SECONDS (11.8-14.3) 11/14/21 16:05 INR Target Range - 11/14/21 16:05 INR 1.51 (0.8-1.3) H 11/14/21 16:05 APTT 57.9 SECONDS (22.9-36.5) H 11/14/21 16:05 PTT Comment - 11/14/21 16:05 D-Dimer 3.83 ug/ml (0.0-0.57) H 11/15/21 13:55 Sample Site Lr 11/17/21 13:10 ABG pH 7.420 (7.35-7.45) 11/17/21 13:10 ABG pCO2 40.0 mmHg (35.0-45.0) 11/17/21 13:10 ABG pO2 73.0 mmHg (80.0-100.0) L 11/17/21 13:10 ABG HCO3 25.9 mmol/L (22-26) 11/17/21 13:10 ABG O2 Saturation 95.0 % (90-100) 11/17/21 13:10 ABG Base Excess 1.3 mmol/L (-2.0-2.0) 11/17/21 13:10 Farhan Test Pos 11/17/21 13:10 A-a Gradient 27.0 mmHg 11/17/21 13:10 FiO2 21.0 11/17/21 13:10 Blood Gas Comments Wilmer well cb 11/17/21 13:10 Sodium 135 mmol/L (136-145) L 11/22/21 01:11 Corrected Sodium 136 mmol/L (136-145) 11/22/21 01:11 Potassium 4.1 mmol/L (3.5-5.1) 11/22/21 01:11 Chloride 101 mmol/L (98-107) 11/22/21 01:11 Carbon Dioxide 24.6 mmol/L (21-32) 11/22/21 01:11 BUN 41 mg/dL (7-18) H 11/22/21 01:11 Creatinine 2.33 mg/dL (0.70-1.30) H 11/22/21 01:11 Creatinine 2.37 mg/dL (0.70-1.30) H 11/22/21 01:11 Est GFR (MDRD) Af Amer 35 (>60) L 11/22/21 01:11 Est GFR (MDRD) Non-Af 29 (>60) L 11/22/21 01:11 Glucose 129 mg/dL (65-99) H 11/22/21 01:11 Lactic Acid 1.5 mmol/L (0.4-2.0) 11/18/21 14:16 Uric Acid 12.8 mg/dL (3.5-7.2) H 11/21/21 04:15 Calcium 7.9 mg/dL (8.5-10.1) L 11/22/21 01:11 Corrected Calcium 9.7 mg/dL (8.5-10.1) 11/22/21 01:11 Phosphorus 3.8 mg/dL (2.6-4.7) 11/14/21 16:05 Magnesium 2.0 mg/dL (1.7-2.9) 11/14/21 16:05 Total Bilirubin 0.30 mg/dL (0.2-1.0) 11/22/21 01:11 AST 41 Units/L (15-37) H 11/22/21 01:11 ALT 32 Units/L (12-78) 11/22/21 01:11 Alkaline Phosphatase 76 Units/L (46-116) 11/22/21 01:11 Creatine Kinase 165 Units/L (39-308) 11/14/21 05:19 CK-MB (CK-2) < 1.0 ng/mL (0-4.0) 11/14/21 05:19 CK/CKMB % Calc 0.6 % (<4) 11/14/21 05:19 Troponin I High Sens 6.6 ng/L (4.0-60.0) 11/14/21 05:19 C-Reactive Protein 224.80 mg/L (0-3.0) H 11/22/21 01:11 B-Natriuretic Peptide 18.9 pg/mL (0-79) 11/20/21 04:38 Total Protein 6.3 g/dL (6.4-8.2) L 11/22/21 01:11 Albumin 1.8 g/dL (3.4-5.0) L 11/22/21 01:11 Globulin 4.5 g/dL (2.5-4.5) 11/22/21 01:11 Albumin/Globulin Ratio 0.4 Ratio (1.1-2.1) L 11/22/21 01:11 Amylase 32 Units/L (25-115) 11/14/21 16:05 Lipase 174 Units/L (73-393) 11/14/21 16:05 Cortisol 12.3 ug/dL 11/14/21 16:05 Vancomycin Trough 14.9 ug/mL (15-20) L 11/22/21 01:11 Random Vancomycin 11.4 ug/mL 11/19/21 19:30 Rheumatoid Factor Negative (NEGATIVE) 11/21/21 04:15 SARS-CoV-2 (PCR) Negative (NEGATIVE) 11/13/21 18:58 Resp Viral Panel (PCR) See scanned report 11/17/21 10:01 Tissue Pathology To follow 11/17/21 10:00 - Plan (1) Cellulitis of right foot Status: Acute Plan: NORMAL SALINE AT 75 ML/HR, ALBUMIN 25% IV DAILY, VANCOMYCIN 1G IV DAILY, BACTRIM DS 1 TABLET BID LOVENOX, PEPCID, TORADOL 15MG IV Q12H PRN PAIN, DILAUDID 2MG IV Q4H PRN PAIN, PERCOCET 5/325MG PO Q4H PRN, AND ZOCOR 20MG PO HS. (2) Gangrene of right foot Status: Acute (3) Septic shock Status: Acute (4) Pulmonary vascular congestion Status: Acute Plan: LASIX 20MG IV X 1 (5) Hyperlipidemia Status: Chronic Qualifiers: Hyperlipidemia type: mixed hyperlipidemia Qualified Code(s): E78.2 - Mixed hyperlipidemia
[2021-11-22] MEDS ORDERED: TEFLARO 400 MG in NS 50 ML IV 50 ML IV SCH (11:00)
--- NOTE | 2021-11-22 11:00 | DR.PROGNOT ---
Hospital Progress Notes - Progress Note for Day of: Progress Note Date: 11/22/21 - Chief Complaint Chief Complaint: s/p debridement RT foot wound .. still having low grade fever last night .. developed RT elbow skin abscess arising from RA nodule.( this was I&D ed ). dressing was changed .. the area above the 1st metatarsal is still draining .. the rest of the wound seems to be getting better . the foot is warm with less erythema . - Past Medical Family Social History Past Med/Fam/Surg Hx: No changes since H&P Allergies: Allergies Penicillins Allergy (Verified 11/13/21 15:58) - Review Of Systems ROS: No change since H&P - Vital Signs Vital Signs: Temperature 97.9 F Pulse Rate [Radial] 114 Pulse Rate 85 Respiratory Rate 24 Blood Pressure [Right Arm] 92/54 Blood Pressure 134/61 O2 Sat by Pulse Oximetry 98 - Physical Exam Oriented: Normal Eyes: Normal Ear: Normal Nose: Normal Throat: Normal Respiratory: Wheezes Cardiovascular: Normal : Normal GI:Auscultation: Normal GI:Palpation: Normal GI: Tenderness: Normal Skin: Wound (RIGHT ELBOW WOUND, POSSIBLY INFECTED RHEUMATOID NODULE ), Other (new area with blisters on the 1st metatarsal head . the rest of the open wound is clean ) Musculoskeletal: Right, Foot, Swelling, Tender Psychiatric: Normal Mood Description: Calm Affect: Normal Speech Pattern: Clear, Appropriate - Laboratory and Diagnostics Result Diagrams: 11/22/21 01:11 11/22/21 01:11 Labs: 11/18/21 14:22 Blood Blood Culture - Preliminary 11/18/21 14:16 Blood Blood Culture - Preliminary 11/13/21 16:24 Blood Blood Culture - Final 11/13/21 16:16 Blood Blood Culture - Final 11/14/21 13:32 Foot - Right Wound Gram Stain - Final 11/14/21 13:32 Foot - Right Wound Culture - Final Methicillin Resis Staph Aureus 11/13/21 16:25 Foot - Right Wound Gram Stain - Final 11/13/21 16:25 Foot - Right Wound Culture - Final Methicillin Resis Staph Aureus Laboratory WBC 15.2 X10^3/uL (3.6-10.0) H 11/22/21 01:11 RBC 3.14 X10^6/uL (4.7-6.0) L 11/22/21 01:11 Hgb 9.4 g/dL (13.5-18.0) L 11/22/21 01:11 Hct 27.7 % (42.0-54.0) L 11/22/21 01:11 MCV 88.4 fL (80.0-100.0) 11/22/21 01:11 MCH 30.1 pg (27.0-34.0) 11/22/21 01:11 MCHC 34.0 g/dL (33.0-35.0) 11/22/21 01:11 RDW 14.4 % (11.6-16.5) 11/22/21 01:11 Plt Count 405 X10^3/uL (150.0-450.0) 11/22/21 01:11 Plt Count Comment Adequate (ADEQUATE) 11/13/21 16:16 MPV 8.1 fL (7.4-11.0) 11/22/21 01:11 Neut % (Auto) 81.1 % (42.0-75.0) H 11/22/21 01:11 Lymph % (Auto) 8.6 % (21.0-51.0) L 11/22/21 01:11 [place] % (Auto) 6.4 % (0.0-13.0) 11/22/21 01:11 Eos % (Auto) 3.1 % (0.9-2.9) H 11/22/21 01:11 Baso % (Auto) 0.8 % (0.2-1.0) 11/22/21 01:11 Neut # (Auto) 12.4 x10^3/uL (2.2-4.8) H 11/22/21 01:11 Lymph # (Auto) 1.3 X10^3/uL (1.3-2.9) 11/22/21 01:11 [place] # (Auto) 1.0 x10^3/uL (0.3-0.8) H 11/22/21 01:11 Eos # (Auto) 0.5 x10^3/uL (0.0-0.2) H 11/22/21 01:11 Baso # (Auto) 0.1 X10^3/uL (0.0-0.1) 11/22/21 01:11 Absolute Nucleated RBC 0.1 /100WBC 11/22/21 01:11 Total Counted 100 11/13/21 16:16 Neutrophils % (Manual) 92 % (39-76) H 11/13/21 16:16 Lymphocytes % (Manual) 7 % (13-43) L 11/13/21 16:16 Monocytes % (Manual) 1 % (4-9) L 11/13/21 16:16 Plt Morphology Comment Normal (NORMAL) 11/13/21 16:16 RBC Morphology Normal (NORMAL) 11/13/21 16:16 PT 17.7 SECONDS (11.8-14.3) 11/14/21 16:05 INR Target Range - 11/14/21 16:05 INR 1.51 (0.8-1.3) H 11/14/21 16:05 APTT 57.9 SECONDS (22.9-36.5) H 11/14/21 16:05 PTT Comment - 11/14/21 16:05 D-Dimer 3.83 ug/ml (0.0-0.57) H 11/15/21 13:55 Sample Site Lr 11/17/21 13:10 ABG pH 7.420 (7.35-7.45) 11/17/21 13:10 ABG pCO2 40.0 mmHg (35.0-45.0) 11/17/21 13:10 ABG pO2 73.0 mmHg (80.0-100.0) L 11/17/21 13:10 ABG HCO3 25.9 mmol/L (22-26) 11/17/21 13:10 ABG O2 Saturation 95.0 % (90-100) 11/17/21 13:10 ABG Base Excess 1.3 mmol/L (-2.0-2.0) 11/17/21 13:10 Farhan Test Pos 11/17/21 13:10 A-a Gradient 27.0 mmHg 11/17/21 13:10 FiO2 21.0 11/17/21 13:10 Blood Gas Comments Wilmer well cb 11/17/21 13:10 Sodium 135 mmol/L (136-145) L 11/22/21 01:11 Corrected Sodium 136 mmol/L (136-145) 11/22/21 01:11 Potassium 4.1 mmol/L (3.5-5.1) 11/22/21 01:11 Chloride 101 mmol/L (98-107) 11/22/21 01:11 Carbon Dioxide 24.6 mmol/L (21-32) 11/22/21 01:11 BUN 41 mg/dL (7-18) H 11/22/21 01:11 Creatinine 2.33 mg/dL (0.70-1.30) H 11/22/21 01:11 Creatinine 2.37 mg/dL (0.70-1.30) H 11/22/21 01:11 Est GFR (MDRD) Af Amer 35 (>60) L 11/22/21 01:11 Est GFR (MDRD) Non-Af 29 (>60) L 11/22/21 01:11 Glucose 129 mg/dL (65-99) H 11/22/21 01:11 Lactic Acid 1.5 mmol/L (0.4-2.0) 11/18/21 14:16 Uric Acid 12.8 mg/dL (3.5-7.2) H 11/21/21 04:15 Calcium 7.9 mg/dL (8.5-10.1) L 11/22/21 01:11 Corrected Calcium 9.7 mg/dL (8.5-10.1) 11/22/21 01:11 Phosphorus 3.8 mg/dL (2.6-4.7) 11/14/21 16:05 Magnesium 2.0 mg/dL (1.7-2.9) 11/14/21 16:05 Total Bilirubin 0.30 mg/dL (0.2-1.0) 11/22/21 01:11 AST 41 Units/L (15-37) H 11/22/21 01:11 ALT 32 Units/L (12-78) 11/22/21 01:11 Alkaline Phosphatase 76 Units/L (46-116) 11/22/21 01:11 Creatine Kinase 165 Units/L (39-308) 11/14/21 05:19 CK-MB (CK-2) < 1.0 ng/mL (0-4.0) 11/14/21 05:19 CK/CKMB % Calc 0.6 % (<4) 11/14/21 05:19 Troponin I High Sens 6.6 ng/L (4.0-60.0) 11/14/21 05:19 C-Reactive Protein 224.80 mg/L (0-3.0) H 11/22/21 01:11 B-Natriuretic Peptide 18.9 pg/mL (0-79) 11/20/21 04:38 Total Protein 6.3 g/dL (6.4-8.2) L 11/22/21 01:11 Albumin 1.8 g/dL (3.4-5.0) L 11/22/21 01:11 Globulin 4.5 g/dL (2.5-4.5) 11/22/21 01:11 Albumin/Globulin Ratio 0.4 Ratio (1.1-2.1) L 11/22/21 01:11 Amylase 32 Units/L (25-115) 11/14/21 16:05 Lipase 174 Units/L (73-393) 11/14/21 16:05 Cortisol 12.3 ug/dL 11/14/21 16:05 Vancomycin Trough 14.9 ug/mL (15-20) L 11/22/21 01:11 Random Vancomycin 11.4 ug/mL 11/19/21 19:30 Rheumatoid Factor Negative (NEGATIVE) 11/21/21 04:15 SARS-CoV-2 (PCR) Negative (NEGATIVE) 11/13/21 18:58 Resp Viral Panel (PCR) See scanned report 11/17/21 10:01 Tissue Pathology To follow 11/17/21 10:00 - Assessment and Plan 2: 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 s/p debridement . strong suspicioun of osteomyelitis 1st and 5th metata rsals. skin abscess RT elbow ( RA ) was I&D ed. same IV ABT for 6 weeks .. and local care . future skin graft RT foot .. - Problem Patient Problems: Patient Problems Cellulitis of right foot (Acute) L03.115 Gangrene of right foot (Acute) I96 Pulmonary vascular congestion (Acute) R09.89 Hyperlipidemia (Chronic) E78.5 Septic shock (Acute) A41.9, R65.21
[2021-11-22] MEDS: MILK OF MAGNESIA PO SCH ×2 (11:03→20:32)
[2021-11-22] MEDS ORDERED: STERILE WATER IRRIGATION IR ONE (12:33)
[2021-11-22] MEDS: PERCOCET TAB 5/325 MG PO PRN (20:30)
[2021-11-22] MEDS: RESTORIL CAP 15 MG PO PRN (20:30)
[2021-11-22] MEDS: ZOCOR TAB 20 MG PO SCH (20:32)
[2021-11-22] MEDS: DILAUDID INJ IVP PRN (22:15)
[2021-11-22] MEDS ORDERED: TEFLARO IV ONE (22:27)
[2021-11-22] MEDS ORDERED: NS 50 ML IV 50 ML IV ONE (22:28)
[2021-11-23 05:05] LABS: BASOPHILS # (AUTO) 0.1 X10^3/uL (0.0-0.1); EOSINOPHILS # (AUTO) 0.5 x10^3/uL (0.0-0.2); EOSINOPHILS % (AUTO) 4.2 % (0.9-2.9); HEMATOCRIT 28.6 % (42.0-54.0); HEMOGLOBIN 9.6 g/dL (13.5-18.0); LYMPHOCYTES # (AUTO) 1.5 X10^3/uL (1.3-2.9); LYMPHOCYTES % (AUTO) 13.4 % (21.0-51.0); MEAN CORPUSCULAR HGB CONC 33.6 g/dL (33.0-35.0); MEAN CORPUSCULAR VOLUME 89.2 fL (80.0-100.0); MEAN PLATELET VOLUME 8.1 fL (7.4-11.0); MONOCYTES # (AUTO) 0.8 x10^3/uL (0.3-0.8); NEUTROPHILS # (AUTO) 8.1 x10^3/uL (2.2-4.8); NEUTROPHILS % (AUTO) 74.4 % (42.0-75.0); RED BLOOD COUNT 3.21 X10^6/uL (4.7-6.0); RED CELL DISTRIBUTION WIDTH 14.5 % (11.6-16.5); WHITE BLOOD COUNT 10.9 X10^3/uL (3.6-10.0)
[2021-11-23 05:16] LABS: ALANINE AMINOTRANSFERASE 36 Units/L (12-78); ALBUMIN 2.1 g/dL (3.4-5.0); ALKALINE PHOSPHATASE 72 Units/L (46-116); ASPARTATE AMINO TRANSFERASE 34 Units/L (15-37); BLOOD UREA NITROGEN 36 mg/dL (7-18); CALCIUM 8.2 mg/dL (8.5-10.1); CARBON DIOXIDE 23.9 mmol/L (21-32); CHLORIDE 104 mmol/L (98-107); COR CA(FOR HYPOALB) 9.7 mg/dL (8.5-10.1); CREATININE 2.23 mg/dL (0.70-1.30); SODIUM 138 mmol/L (136-145); TOTAL PROTEIN 6.5 g/dL (6.4-8.2); eGFR NON BLACK RACES 31 (>60)
[2021-11-23] MEDS: XOPENEX 1.25 MG/3 ML NEBULE NEB SCH ×4 (05:55→20:35)
[2021-11-23] MEDS ORDERED: TEFLARO 400 MG in NS 50 ML IV 50 ML IV SCH (06:00)
[2021-11-23] MEDS: LOVENOX INJ 40 MG SYR SC SCH (08:31)
[2021-11-23] MEDS: BACTRIM DS TAB PO SCH ×2 (08:31→20:09)
[2021-11-23] MEDS: ALBUMIN HUMAN 25%- 100 ML 100 ML IV SCH (08:31)
[2021-11-23] MEDS: MILK OF MAGNESIA PO SCH ×2 (08:32→20:54)
[2021-11-23] MEDS: NYSTATIN POWDER TOP SCH ×2 (08:32→20:54)
[2021-11-23] MEDS: RIFADIN PO SCH ×2 (08:33→20:09)
[2021-11-23] MEDS: PEPCID TAB 20 MG PO SCH (08:33)
[2021-11-23] MEDS: PERCOCET TAB 5/325 MG PO PRN ×2 (08:33→20:10)
[2021-11-23] MEDS: NS 1,000 ML IV 1,000 ML IV SCH (09:40)
[2021-11-23] MEDS ORDERED: PHARMACY CONSULT - VANCOMYCIN XX SCH (10:00)
--- NOTE | 2021-11-23 10:37 | DR.PROGNOT ---
Hospital Progress Notes - Progress Note for Day of: Progress Note Date: 11/23/21 - Chief Complaint Chief Complaint: doing better with less drainage from the foot ulcer .. having moderate drainage from the RT elbow abscess which was I&D ed . WBC came down today and improving renal function . afebrile for 24 hours .. - Past Medical Family Social History Past Med/Fam/Surg Hx: No changes since H&P Allergies: Allergies Penicillins Allergy (Verified 11/13/21 15:58) - Review Of Systems ROS: No change since H&P - Vital Signs Vital Signs: Temperature 99.4 F Pulse Rate [Radial] 114 Pulse Rate 99 Respiratory Rate 27 Blood Pressure [Right Arm] 92/54 Blood Pressure 109/56 O2 Sat by Pulse Oximetry 90 - Physical Exam Oriented: Normal Eyes: Normal Ear: Normal Nose: Normal Throat: Normal Respiratory: Wheezes Cardiovascular: Normal : Normal GI:Auscultation: Normal GI:Palpation: Normal GI: Tenderness: Normal Skin: Wound (RIGHT ELBOW WOUND, still draing small amount .), Other (open wound on the 1st metatarsal head . the rest of the open wound is clean with less cellulitis ) Musculoskeletal: Right, Foot, Swelling, Tender Psychiatric: Normal Mood Description: Calm Affect: Normal Speech Pattern: Clear, Appropriate - Laboratory and Diagnostics Result Diagrams: 11/23/21 04:11 11/23/21 04:11 Labs: 11/18/21 14:22 Blood Blood Culture - Preliminary 11/18/21 14:16 Blood Blood Culture - Preliminary 11/13/21 16:24 Blood Blood Culture - Final 11/13/21 16:16 Blood Blood Culture - Final 11/14/21 13:32 Foot - Right Wound Gram Stain - Final 11/14/21 13:32 Foot - Right Wound Culture - Final Methicillin Resis Staph Aureus 11/13/21 16:25 Foot - Right Wound Gram Stain - Final 11/13/21 16:25 Foot - Right Wound Culture - Final Methicillin Resis Staph Aureus Laboratory WBC 10.9 X10^3/uL (3.6-10.0) H 11/23/21 04:11 RBC 3.21 X10^6/uL (4.7-6.0) L 11/23/21 04:11 Hgb 9.6 g/dL (13.5-18.0) L 11/23/21 04:11 Hct 28.6 % (42.0-54.0) L 11/23/21 04:11 MCV 89.2 fL (80.0-100.0) 11/23/21 04:11 MCH 30.0 pg (27.0-34.0) 11/23/21 04:11 MCHC 33.6 g/dL (33.0-35.0) 11/23/21 04:11 RDW 14.5 % (11.6-16.5) 11/23/21 04:11 Plt Count 448 X10^3/uL (150.0-450.0) 11/23/21 04:11 Plt Count Comment Adequate (ADEQUATE) 11/13/21 16:16 MPV 8.1 fL (7.4-11.0) 11/23/21 04:11 Neut % (Auto) 74.4 % (42.0-75.0) 11/23/21 04:11 Lymph % (Auto) 13.4 % (21.0-51.0) L 11/23/21 04:11 [place] % (Auto) 7.0 % (0.0-13.0) 11/23/21 04:11 Eos % (Auto) 4.2 % (0.9-2.9) H 11/23/21 04:11 Baso % (Auto) 1.0 % (0.2-1.0) 11/23/21 04:11 Neut # (Auto) 8.1 x10^3/uL (2.2-4.8) H 11/23/21 04:11 Lymph # (Auto) 1.5 X10^3/uL (1.3-2.9) 11/23/21 04:11 [place] # (Auto) 0.8 x10^3/uL (0.3-0.8) 11/23/21 04:11 Eos # (Auto) 0.5 x10^3/uL (0.0-0.2) H 11/23/21 04:11 Baso # (Auto) 0.1 X10^3/uL (0.0-0.1) 11/23/21 04:11 Absolute Nucleated RBC 0.1 /100WBC 11/23/21 04:11 Total Counted 100 11/13/21 16:16 Neutrophils % (Manual) 92 % (39-76) H 11/13/21 16:16 Lymphocytes % (Manual) 7 % (13-43) L 11/13/21 16:16 Monocytes % (Manual) 1 % (4-9) L 11/13/21 16:16 Plt Morphology Comment Normal (NORMAL) 11/13/21 16:16 RBC Morphology Normal (NORMAL) 11/13/21 16:16 PT 17.7 SECONDS (11.8-14.3) 11/14/21 16:05 INR Target Range - 11/14/21 16:05 INR 1.51 (0.8-1.3) H 11/14/21 16:05 APTT 57.9 SECONDS (22.9-36.5) H 11/14/21 16:05 PTT Comment - 11/14/21 16:05 D-Dimer 3.83 ug/ml (0.0-0.57) H 11/15/21 13:55 Sample Site Lr 11/17/21 13:10 ABG pH 7.420 (7.35-7.45) 11/17/21 13:10 ABG pCO2 40.0 mmHg (35.0-45.0) 11/17/21 13:10 ABG pO2 73.0 mmHg (80.0-100.0) L 11/17/21 13:10 ABG HCO3 25.9 mmol/L (22-26) 11/17/21 13:10 ABG O2 Saturation 95.0 % (90-100) 11/17/21 13:10 ABG Base Excess 1.3 mmol/L (-2.0-2.0) 11/17/21 13:10 Farhan Test Pos 11/17/21 13:10 A-a Gradient 27.0 mmHg 11/17/21 13:10 FiO2 21.0 11/17/21 13:10 Blood Gas Comments Wilmer well cb 11/17/21 13:10 Sodium 138 mmol/L (136-145) 11/23/21 04:11 Corrected Sodium TNP 11/23/21 04:11 Potassium 4.1 mmol/L (3.5-5.1) 11/23/21 04:11 Chloride 104 mmol/L (98-107) 11/23/21 04:11 Carbon Dioxide 23.9 mmol/L (21-32) 11/23/21 04:11 BUN 36 mg/dL (7-18) H 11/23/21 04:11 Creatinine 2.23 mg/dL (0.70-1.30) H 11/23/21 04:11 Est GFR (MDRD) Af Amer 38 (>60) L 11/23/21 04:11 Est GFR (MDRD) Non-Af 31 (>60) L 11/23/21 04:11 Glucose 104 mg/dL (65-99) H 11/23/21 04:11 Lactic Acid 1.5 mmol/L (0.4-2.0) 11/18/21 14:16 Uric Acid 12.8 mg/dL (3.5-7.2) H 11/21/21 04:15 Calcium 8.2 mg/dL (8.5-10.1) L 11/23/21 04:11 Corrected Calcium 9.7 mg/dL (8.5-10.1) 11/23/21 04:11 Phosphorus 3.8 mg/dL (2.6-4.7) 11/14/21 16:05 Magnesium 2.0 mg/dL (1.7-2.9) 11/14/21 16:05 Total Bilirubin 0.40 mg/dL (0.2-1.0) 11/23/21 04:11 AST 34 Units/L (15-37) 11/23/21 04:11 ALT 36 Units/L (12-78) 11/23/21 04:11 Alkaline Phosphatase 72 Units/L (46-116) 11/23/21 04:11 Creatine Kinase 165 Units/L (39-308) 11/14/21 05:19 CK-MB (CK-2) < 1.0 ng/mL (0-4.0) 11/14/21 05:19 CK/CKMB % Calc 0.6 % (<4) 11/14/21 05:19 Troponin I High Sens 6.6 ng/L (4.0-60.0) 11/14/21 05:19 C-Reactive Protein 150.60 mg/L (0-3.0) H 11/23/21 04:11 B-Natriuretic Peptide 18.9 pg/mL (0-79) 11/20/21 04:38 Total Protein 6.5 g/dL (6.4-8.2) 11/23/21 04:11 Albumin 2.1 g/dL (3.4-5.0) L 11/23/21 04:11 Globulin 4.4 g/dL (2.5-4.5) 11/23/21 04:11 Albumin/Globulin Ratio 0.5 Ratio (1.1-2.1) L 11/23/21 04:11 Amylase 32 Units/L (25-115) 11/14/21 16:05 Lipase 174 Units/L (73-393) 11/14/21 16:05 Cortisol 12.3 ug/dL 11/14/21 16:05 Vancomycin Trough 14.9 ug/mL (15-20) L 11/22/21 01:11 Random Vancomycin 11.4 ug/mL 11/19/21 19:30 Rheumatoid Factor Negative (NEGATIVE) 11/21/21 04:15 SARS-CoV-2 (PCR) Negative (NEGATIVE) 11/13/21 18:58 Resp Viral Panel (PCR) See scanned report 11/17/21 10:01 Tissue Pathology To follow 11/17/21 10:00 - Assessment and Plan 2: 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 s/p debridement , improving .. strong suspicioun of osteomyelitis 1st and 5th metatarsals. skin abscess RT elbow ( RA ) was I&D ed. same IV ABT for 6 weeks .. and local care . to change central line and place PIC line Lt arm .. future skin graft RT foot .. - Problem Patient Problems: Patient Problems Cellulitis of right foot (Acute) L03.115 Gangrene of right foot (Acute) I96 Pulmonary vascular congestion (Acute) R09.89 Hyperlipidemia (Chronic) E78.5 Septic shock (Acute) A41.9, R65.21
[2021-11-23] MEDS ORDERED: HYDROGEN PEROXIDE 3% ONE ×2 (10:48→11:12)
[2021-11-23] MEDS: VANCOMYCIN IV *PREMIX 1.5 G/300 ML BAG 1.5 G/300 ML PIGGYBACK IV SCH (10:51)
[2021-11-23] MEDS ORDERED: STERILE WATER IRRIGATION IR ONE ×2 (10:51→11:11)
[2021-11-23] MEDS ORDERED: NS 250 ML IV 250 ML IV ONE ×2 (11:25→11:27)
--- NOTE | 2021-11-23 18:28 | PCM.PROG ---
Progress Note - Progress Note for Day of Date of Exam: 11/22/21 - Subjective Subjective: IS CURRENTLY BEING TREATED FOR CELLULITIS OF THE RIGHT FOOT AND LEG WITH WOUNDS TO DORSAL ASPECT OF FOOT AND TO THE GREAT TOE. WOUND CULTURES WERE POSITIVE FOR GROWTH OF MRSA. HE IS STATUS POST DEBRIDEMENT OF WOUNDS BY . THERE WAS APPARENTLY GANGRENOUS CHANGES IN THE DORSAL ASPECT OF THE RIGHT FOOT MEASURING 14X4 CM. TODAY, HE IS ALERT, LYING IN BED ON MORNING ROUNDS. HE CONTINUES TO COMPLAIN OF PAIN TO THE RIGHT ELBOW THIS MORNING. HE DENIES PAIN TO RIGHT LOWER EXTREMITY. ON EXAMINATION, HEART IS REGULAR IN RATE AND RHYTHM. BILATERAL LUNGS ARE NOTED WITH DIMINISHED LUNG SOUNDS THROUGHOUT. HE IS CURRENTLY UTILIZING OXYGEN AT 2 LPM. SATURATIONS HAVE REMAINED IN THE UPPER 90s. ABDOMEN IS ROUND, SOFT, AND NON-TENDER WITH NORMAL BOWEL SOUNDS NOTED IN ALL QUADRANTS. RIGHT FOOT IS OPEN TO AIR. THERE CONTINUES TO BE ERYTHEMA, EDEMA, AND THERE ARE MULTIPLE WOUNDS THAT HAVE BEEN DEBRIDED. THERE IS WHAT APPEARS TO BE A LARGE RHEUMATOID NODULE TO THE LEFT ELBOW. NODULE HAS PURULENT DRAINAGE. THERE IS ERYTHEMA AND EDEMA TO SITE. PLANS FOR I&D OF WOUND TODAY. HIS VITALS THIS MORNING ARE: 99.1-87-25-94%-124/62. LABS WERE OBTAINED. WBC 15.2, RBC 3.14, HGB 9.4, HCT 27.7, SODIUM 135, POTASSIUM 4.1, BUN 41, CREATININE 2.37, GLUCOSE 129, CALCIUM 7.9, AST 41, ALT 32, ALK PHOS 76, CRP 224.80, TOTAL PROTEIN 6.3, ALBUMIN 1.8. BLOOD CULTURES ARE PENDING. WOUND CULTURES ARE POSITIVE FOR GROWTH OF MRSA. A LOWER EXTREMITY MRI WAS OBTAINED AND REVEALED: Cellulitis and large skin ulcer are seen without evidence of soft tissue abscess. Probable osteomyelitis is seen within the distal head and shaft of the 5th metatarsal. HE IS CURRENTLY RECEIVING NORMAL SALINE AT 75 ML/HR, ALBUMIN 25% IV DAILY, VANCOMYCIN 1G IV DAILY, INVANZ 1G IV DAILY, BACTRIM DS 1 TAB BID, LOVENOX 40 SC DAILY, PEPCID 20MG PO DAILY, XOPENEX NEB TX TID, TORADOL 15MG IV Q12H PRN PAIN, DILAUDID 2MG IV Q4H PRN PAIN, PERCOCET 5/325MG PO Q4H PRN, AND ZOCOR 20MG PO HS. TODAY, WE WILL WE WILL DISCONTINUE THE INVANZ TODAY. WE WILL ADD TEFLARO AND RIFAMPIN. OTHERWISE, WE PLAN TO FOLLOW-UP WITH AM LABS A ND CONTINUE TO MONITOR. WILL FOLLOW FOR WOUND CARE. TIME SPENT ON CLINICAL ASSESSMENT, REVIEWING LABS AND IMAGING, DECISION MAKING, AND DOCUMENTATION GREATER THAN 45 MINUTES. - Past Medical Family Social History Past Med/Fam/Surg Hx: No changes since H&P Allergies: Allergies Penicillins Allergy (Verified 11/13/21 15:58) - Review of Systems ROS: No change since H&P - Vital Signs and I&O's Vital Signs: Temperature 99.3 F Pulse Rate [Radial] 114 Pulse Rate 101 Respiratory Rate 26 Blood Pressure [Right Arm] 92/54 Blood Pressure 110/75 O2 Sat by Pulse Oximetry 95 Intake and Output: Intake & Output 11/21/21 11/22/21 11/23/21 11/24/21 11:59 11:59 11:59 11:59 Intake Total 2931 / 2931 2412 / 2412 4192 / 4192 1383 / 1383 Output Total 950 / 950 900 / 900 1999 / 1999 Balance 1980 / 1980 1512 / 1512 2192 / 2192 1383 / 1383 - Physical Exam Oriented: Normal Eyes: Normal Ear: Normal Nose: Normal Throat: Normal Respiratory: Diminished Cardiovascular: Normal : Normal Auscultation: Bowel Sounds: Normal Palpation: Normal Tenderness: Normal Skin: Wound (RIGHT ELBOW WOUND, still draing small amount .), Other (open wound on the 1st metatarsal head . the rest of the open wound is clean with less cellulitis ) Musculoskeletal: Right, Foot, Swelling, Tender Psychiatric: Normal Mood Description: Calm Affect: Normal Speech Pattern: Clear, Appropriate - Laboratory and Diagnostics Result Diagrams: 11/23/21 04:11 11/23/21 04:11 Labs: 11/22/21 09:55 Elbow - Right Wound Culture - Preliminary 11/18/21 14:22 Blood Blood Culture - Preliminary 11/18/21 14:16 Blood Blood Culture - Preliminary 11/13/21 16:24 Blood Blood Culture - Final 11/13/21 16:16 Blood Blood Culture - Final 11/14/21 13:32 Foot - Right Wound Gram Stain - Final 11/14/21 13:32 Foot - Right Wound Culture - Final Methicillin Resis Staph Aureus 11/13/21 16:25 Foot - Right Wound Gram Stain - Final 11/13/21 16:25 Foot - Right Wound Culture - Final Methicillin Resis Staph Aureus Laboratory WBC 10.9 X10^3/uL (3.6-10.0) H 11/23/21 04:11 RBC 3.21 X10^6/uL (4.7-6.0) L 11/23/21 04:11 Hgb 9.6 g/dL (13.5-18.0) L 11/23/21 04:11 Hct 28.6 % (42.0-54.0) L 11/23/21 04:11 MCV 89.2 fL (80.0-100.0) 11/23/21 04:11 MCH 30.0 pg (27.0-34.0) 11/23/21 04:11 MCHC 33.6 g/dL (33.0-35.0) 11/23/21 04:11 RDW 14.5 % (11.6-16.5) 11/23/21 04:11 Plt Count 448 X10^3/uL (150.0-450.0) 11/23/21 04:11 Plt Count Comment Adequate (ADEQUATE) 11/13/21 16:16 MPV 8.1 fL (7.4-11.0) 11/23/21 04:11 Neut % (Auto) 74.4 % (42.0-75.0) 11/23/21 04:11 Lymph % (Auto) 13.4 % (21.0-51.0) L 11/23/21 04:11 [place] % (Auto) 7.0 % (0.0-13.0) 11/23/21 04:11 Eos % (Auto) 4.2 % (0.9-2.9) H 11/23/21 04:11 Baso % (Auto) 1.0 % (0.2-1.0) 11/23/21 04:11 Neut # (Auto) 8.1 x10^3/uL (2.2-4.8) H 11/23/21 04:11 Lymph # (Auto) 1.5 X10^3/uL (1.3-2.9) 11/23/21 04:11 [place] # (Auto) 0.8 x10^3/uL (0.3-0.8) 11/23/21 04:11 Eos # (Auto) 0.5 x10^3/uL (0.0-0.2) H 11/23/21 04:11 Baso # (Auto) 0.1 X10^3/uL (0.0-0.1) 11/23/21 04:11 Absolute Nucleated RBC 0.1 /100WBC 11/23/21 04:11 Total Counted 100 11/13/21 16:16 Neutrophils % (Manual) 92 % (39-76) H 11/13/21 16:16 Lymphocytes % (Manual) 7 % (13-43) L 11/13/21 16:16 Monocytes % (Manual) 1 % (4-9) L 11/13/21 16:16 Plt Morphology Comment Normal (NORMAL) 11/13/21 16:16 RBC Morphology Normal (NORMAL) 11/13/21 16:16 PT 17.7 SECONDS (11.8-14.3) 11/14/21 16:05 INR Target Range - 11/14/21 16:05 INR 1.51 (0.8-1.3) H 11/14/21 16:05 APTT 57.9 SECONDS (22.9-36.5) H 11/14/21 16:05 PTT Comment - 11/14/21 16:05 D-Dimer 3.83 ug/ml (0.0-0.57) H 11/15/21 13:55 Sample Site Lr 11/17/21 13:10 ABG pH 7.420 (7.35-7.45) 11/17/21 13:10 ABG pCO2 40.0 mmHg (35.0-45.0) 11/17/21 13:10 ABG pO2 73.0 mmHg (80.0-100.0) L 11/17/21 13:10 ABG HCO3 25.9 mmol/L (22-26) 11/17/21 13:10 ABG O2 Saturation 95.0 % (90-100) 11/17/21 13:10 ABG Base Excess 1.3 mmol/L (-2.0-2.0) 11/17/21 13:10 Farhan Test Pos 11/17/21 13:10 A-a Gradient 27.0 mmHg 11/17/21 13:10 FiO2 21.0 11/17/21 13:10 Blood Gas Comments Wilmer well cb 11/17/21 13:10 Sodium 138 mmol/L (136-145) 11/23/21 04:11 Corrected Sodium TNP 11/23/21 04:11 Potassium 4.1 mmol/L (3.5-5.1) 11/23/21 04:11 Chloride 104 mmol/L (98-107) 11/23/21 04:11 Carbon Dioxide 23.9 mmol/L (21-32) 11/23/21 04:11 BUN 36 mg/dL (7-18) H 11/23/21 04:11 Creatinine 2.23 mg/dL (0.70-1.30) H 11/23/21 04:11 Est GFR (MDRD) Af Amer 38 (>60) L 11/23/21 04:11 Est GFR (MDRD) Non-Af 31 (>60) L 11/23/21 04:11 Glucose 104 mg/dL (65-99) H 11/23/21 04:11 Lactic Acid 1.5 mmol/L (0.4-2.0) 11/18/21 14:16 Uric Acid 12.8 mg/dL (3.5-7.2) H 11/21/21 04:15 Calcium 8.2 mg/dL (8.5-10.1) L 11/23/21 04:11 Corrected Calcium 9.7 mg/dL (8.5-10.1) 11/23/21 04:11 Phosphorus 3.8 mg/dL (2.6-4.7) 11/14/21 16:05 Magnesium 2.0 mg/dL (1.7-2.9) 11/14/21 16:05 Total Bilirubin 0.40 mg/dL (0.2-1.0) 11/23/21 04:11 AST 34 Units/L (15-37) 11/23/21 04:11 ALT 36 Units/L (12-78) 11/23/21 04:11 Alkaline Phosphatase 72 Units/L (46-116) 11/23/21 04:11 Creatine Kinase 165 Units/L (39-308) 11/14/21 05:19 CK-MB (CK-2) < 1.0 ng/mL (0-4.0) 11/14/21 05:19 CK/CKMB % Calc 0.6 % (<4) 11/14/21 05:19 Troponin I High Sens 6.6 ng/L (4.0-60.0) 11/14/21 05:19 C-Reactive Protein 150.60 mg/L (0-3.0) H 11/23/21 04:11 B-Natriuretic Peptide 18.9 pg/mL (0-79) 11/20/21 04:38 Total Protein 6.5 g/dL (6.4-8.2) 11/23/21 04:11 Albumin 2.1 g/dL (3.4-5.0) L 11/23/21 04:11 Globulin 4.4 g/dL (2.5-4.5) 11/23/21 04:11 Albumin/Globulin Ratio 0.5 Ratio (1.1-2.1) L 11/23/21 04:11 Amylase 32 Units/L (25-115) 11/14/21 16:05 Lipase 174 Units/L (73-393) 11/14/21 16:05 Cortisol 12.3 ug/dL 11/14/21 16:05 Vancomycin Trough 14.9 ug/mL (15-20) L 11/22/21 01:11 Random Vancomycin 11.4 ug/mL 11/19/21 19:30 Rheumatoid Factor Negative (NEGATIVE) 11/21/21 04:15 SARS-CoV-2 (PCR) Negative (NEGATIVE) 11/13/21 18:58 Resp Viral Panel (PCR) See scanned report 11/17/21 10:01 Tissue Pathology To follow 11/17/21 10:00 - Plan (1) Cellulitis of right foot Status: Acute Plan: NORMAL SALINE AT 75 ML/HR, ALBUMIN 25% IV DAILY, VANCOMYCIN 1G IV DAILY, BACTRIM DS 1 TABLET BID, RIFAMPIN, TEFLARO, LOVENOX, PEPCID, TORADOL 15MG IV Q12H PRN PAIN, DILAUDID 2MG IV Q4H PRN PAIN, PERCOCET 5/325MG PO Q4H PRN, AND ZOCOR 20MG PO HS. (2) Gangrene of right foot Status: Acute (3) Septic shock Status: Acute (4) Pulmonary vascular congestion Status: Acute (5) Hyperlipidemia Status: Chronic Qualifiers: Hyperlipidemia type: mixed hyperlipidemia Qualified Code(s): E78.2 - Mixed hyperlipidemia
--- NOTE | 2021-11-23 18:50 | PCM.PROG ---
Progress Note - Progress Note for Day of Date of Exam: 11/23/21 - Subjective Subjective: IS CURRENTLY BEING TREATED FOR CELLULITIS AND OSTEOMYELITIS OF THE RIGHT FOOT AND LEG WITH WOUNDS TO DORSAL ASPECT OF FOOT AND TO THE GREAT TOE. WOUND CULTURES WERE POSITIVE FOR GROWTH OF MRSA. HE IS STATUS POST DEBRIDEMENT OF WOUNDS BY . HE ALSO HAS AN INFECTED RHEUMATOID NODULE AND CELLULITIS TO THE RIGHT ELBOW. TODAY, HE IS ALERT, LYING IN BED ON MORNING ROUNDS. HE CONTINUES TO COMPLAIN OF PAIN TO THE RIGHT ELBOW THIS MORNING. HE DENIES PAIN TO RIGHT LOWER EXTREMITY. ON EXAMINATION, HEART IS REGULAR IN RATE AND RHYTHM. BILATERAL LUNGS ARE NOTED WITH DIMINISHED LUNG SOUNDS THROUGHOUT. HE IS CURRENTLY UTILIZING OXYGEN AT 2 LPM. SATURATIONS HAVE REMAINED IN THE UPPER 90s. ABDOMEN IS ROUND, SOFT, AND NON-TENDER WITH NORMAL BOWEL SOUNDS NOTED IN ALL QUADRANTS. RIGHT FOOT IS OPEN TO AIR. THERE CONTINUES TO BE ERYTHEMA, EDEMA, AND THERE ARE MULTIPLE WOUNDS THAT HAVE BEEN DEBRIDED. THERE IS WHAT APPEARS TO BE A LARGE RHEUMATOID NODULE TO THE RIGHT ELBOW. NODULE HAS BEEN DRAINED AND THERE IS CURRENTLY PACKING IN THE WOUND. THERE IS ERYTHEMA AND EDEMA TO SITE. HIS VITALS THIS MORNING ARE: 99.4-100-30-91%-104/58. LABS WERE OBTAINED. WBC 10.9, RBC 3.21, HGB 9.6, HCT 28.6, SODIUM 138, POTASSIUM 4.1, BUN 36, CREATININE 2.23, GLUCOSE 104, CRP 150.60, TOTAL PROTEIN 6.5, ALBUMIN 2.1. BLOOD CULTURES ARE PENDING. WOUND CULTURES ARE POSITIVE FOR GROWTH OF MRSA. A LOWER EXTREMITY MRI WAS OBTAINED AND REVEALED: Cellulitis and large skin ulcer are seen without evidence of soft tissue abscess. Probable osteomyelitis is seen within the distal head and shaft of the 5th metatarsal. HE IS CURRENTLY RECEIVING NORMAL SALINE AT 75 ML/HR, ALBUMIN 25% IV DAILY, TEFLARO IV, RIFAMPIN 300MG PO BID, BACTRIM DS 1 TAB BID, LOVENOX 40 SC DAILY, PEPCID 20MG PO DAILY, XOPENEX NEB TX TID, TORADOL 15MG IV Q12H PRN PAIN, DILAUDID 2MG IV Q4H PRN PAIN, PERCOCET 5/325MG PO Q4H PRN, AND ZOCOR 20MG PO HS. HE WILL REQUIRE IV ANTIBIOTICS FOR 6 WEEKS FOLLOWING DISCHARGE. WE WILL CONSULT ANETHESIA FOR A PICC LINE. OTHERWISE, WE WILL CONTINUE WITH CURRENT PLAN OF CARE TODAY. WE PLAN TO FOLLOW-UP WITH AM LABS AND CONTINUE TO MONITOR. WILL FOLLOW FOR WOUND CARE. TIME SPENT ON CLINICAL ASSESSMENT, REVIEWING LABS AND IMAGING, DECISION MAKING, AND DOCUMENTATION GREATER THAN 45 MINUTES. - Past Medical Family Social History Past Med/Fam/Surg Hx: No changes since H&P Allergies: Allergies Penicillins Allergy (Verified 11/13/21 15:58) - Review of Systems ROS: No change since H&P - Vital Signs and I&O's Vital Signs: Temperature 99.3 F Pulse Rate [Radial] 114 Pulse Rate 101 Respiratory Rate 33 Blood Pressure [Right Arm] 92/54 Blood Pressure 121/66 O2 Sat by Pulse Oximetry 93 Intake and Output: Intake & Output 11/21/21 11/22/21 11/23/21 11/24/21 11:59 11:59 11:59 11:59 Intake Total 2931 / 2931 2412 / 2412 4192 / 4192 1383 / 1383 Output Total 950 / 950 900 / 900 1999 / 1999 Balance 1980 / 1980 1512 / 1512 2192 / 2192 1383 / 1383 - Physical Exam Oriented: Normal Eyes: Normal Ear: Normal Nose: Normal Throat: Normal Respiratory: Diminished Cardiovascular: Normal : Normal Auscultation: Bowel Sounds: Normal Palpation: Normal Tenderness: Normal Skin: Wound (RIGHT ELBOW WOUND, still draing small amount .), Other (open wound on the 1st metatarsal head . the rest of the open wound is clean with less cellulitis ) Musculoskeletal: Right, Foot, Swelling, Tender Psychiatric: Normal Mood Description: Calm Affect: Normal Speech Pattern: Clear, Appropriate - Laboratory and Diagnostics Result Diagrams: 11/23/21 04:11 11/23/21 04:11 Labs: 11/22/21 09:55 Elbow - Right Wound Culture - Preliminary 11/18/21 14:22 Blood Blood Culture - Preliminary 11/18/21 14:16 Blood Blood Culture - Preliminary 11/13/21 16:24 Blood Blood Culture - Final 11/13/21 16:16 Blood Blood Culture - Final 11/14/21 13:32 Foot - Right Wound Gram Stain - Final 11/14/21 13:32 Foot - Right Wound Culture - Final Methicillin Resis Staph Aureus 11/13/21 16:25 Foot - Right Wound Gram Stain - Final 11/13/21 16:25 Foot - Right Wound Culture - Final Methicillin Resis Staph Aureus Laboratory WBC 10.9 X10^3/uL (3.6-10.0) H 11/23/21 04:11 RBC 3.21 X10^6/uL (4.7-6.0) L 11/23/21 04:11 Hgb 9.6 g/dL (13.5-18.0) L 11/23/21 04:11 Hct 28.6 % (42.0-54.0) L 11/23/21 04:11 MCV 89.2 fL (80.0-100.0) 11/23/21 04:11 MCH 30.0 pg (27.0-34.0) 11/23/21 04:11 MCHC 33.6 g/dL (33.0-35.0) 11/23/21 04:11 RDW 14.5 % (11.6-16.5) 11/23/21 04:11 Plt Count 448 X10^3/uL (150.0-450.0) 11/23/21 04:11 Plt Count Comment Adequate (ADEQUATE) 11/13/21 16:16 MPV 8.1 fL (7.4-11.0) 11/23/21 04:11 Neut % (Auto) 74.4 % (42.0-75.0) 11/23/21 04:11 Lymph % (Auto) 13.4 % (21.0-51.0) L 11/23/21 04:11 [place] % (Auto) 7.0 % (0.0-13.0) 11/23/21 04:11 Eos % (Auto) 4.2 % (0.9-2.9) H 11/23/21 04:11 Baso % (Auto) 1.0 % (0.2-1.0) 11/23/21 04:11 Neut # (Auto) 8.1 x10^3/uL (2.2-4.8) H 11/23/21 04:11 Lymph # (Auto) 1.5 X10^3/uL (1.3-2.9) 11/23/21 04:11 [place] # (Auto) 0.8 x10^3/uL (0.3-0.8) 11/23/21 04:11 Eos # (Auto) 0.5 x10^3/uL (0.0-0.2) H 11/23/21 04:11 Baso # (Auto) 0.1 X10^3/uL (0.0-0.1) 11/23/21 04:11 Absolute Nucleated RBC 0.1 /100WBC 11/23/21 04:11 Total Counted 100 11/13/21 16:16 Neutrophils % (Manual) 92 % (39-76) H 11/13/21 16:16 Lymphocytes % (Manual) 7 % (13-43) L 11/13/21 16:16 Monocytes % (Manual) 1 % (4-9) L 11/13/21 16:16 Plt Morphology Comment Normal (NORMAL) 11/13/21 16:16 RBC Morphology Normal (NORMAL) 11/13/21 16:16 PT 17.7 SECONDS (11.8-14.3) 11/14/21 16:05 INR Target Range - 11/14/21 16:05 INR 1.51 (0.8-1.3) H 11/14/21 16:05 APTT 57.9 SECONDS (22.9-36.5) H 11/14/21 16:05 PTT Comment - 11/14/21 16:05 D-Dimer 3.83 ug/ml (0.0-0.57) H 11/15/21 13:55 Sample Site Lr 11/17/21 13:10 ABG pH 7.420 (7.35-7.45) 11/17/21 13:10 ABG pCO2 40.0 mmHg (35.0-45.0) 11/17/21 13:10 ABG pO2 73.0 mmHg (80.0-100.0) L 11/17/21 13:10 ABG HCO3 25.9 mmol/L (22-26) 11/17/21 13:10 ABG O2 Saturation 95.0 % (90-100) 11/17/21 13:10 ABG Base Excess 1.3 mmol/L (-2.0-2.0) 11/17/21 13:10 Farhan Test Pos 11/17/21 13:10 A-a Gradient 27.0 mmHg 11/17/21 13:10 FiO2 21.0 11/17/21 13:10 Blood Gas Comments Wilmer well cb 11/17/21 13:10 Sodium 138 mmol/L (136-145) 11/23/21 04:11 Corrected Sodium TNP 11/23/21 04:11 Potassium 4.1 mmol/L (3.5-5.1) 11/23/21 04:11 Chloride 104 mmol/L (98-107) 11/23/21 04:11 Carbon Dioxide 23.9 mmol/L (21-32) 11/23/21 04:11 BUN 36 mg/dL (7-18) H 11/23/21 04:11 Creatinine 2.23 mg/dL (0.70-1.30) H 11/23/21 04:11 Est GFR (MDRD) Af Amer 38 (>60) L 11/23/21 04:11 Est GFR (MDRD) Non-Af 31 (>60) L 11/23/21 04:11 Glucose 104 mg/dL (65-99) H 11/23/21 04:11 Lactic Acid 1.5 mmol/L (0.4-2.0) 11/18/21 14:16 Uric Acid 12.8 mg/dL (3.5-7.2) H 11/21/21 04:15 Calcium 8.2 mg/dL (8.5-10.1) L 11/23/21 04:11 Corrected Calcium 9.7 mg/dL (8.5-10.1) 11/23/21 04:11 Phosphorus 3.8 mg/dL (2.6-4.7) 11/14/21 16:05 Magnesium 2.0 mg/dL (1.7-2.9) 11/14/21 16:05 Total Bilirubin 0.40 mg/dL (0.2-1.0) 11/23/21 04:11 AST 34 Units/L (15-37) 11/23/21 04:11 ALT 36 Units/L (12-78) 11/23/21 04:11 Alkaline Phosphatase 72 Units/L (46-116) 11/23/21 04:11 Creatine Kinase 165 Units/L (39-308) 11/14/21 05:19 CK-MB (CK-2) < 1.0 ng/mL (0-4.0) 11/14/21 05:19 CK/CKMB % Calc 0.6 % (<4) 11/14/21 05:19 Troponin I High Sens 6.6 ng/L (4.0-60.0) 11/14/21 05:19 C-Reactive Protein 150.60 mg/L (0-3.0) H 11/23/21 04:11 B-Natriuretic Peptide 18.9 pg/mL (0-79) 11/20/21 04:38 Total Protein 6.5 g/dL (6.4-8.2) 11/23/21 04:11 Albumin 2.1 g/dL (3.4-5.0) L 11/23/21 04:11 Globulin 4.4 g/dL (2.5-4.5) 11/23/21 04:11 Albumin/Globulin Ratio 0.5 Ratio (1.1-2.1) L 11/23/21 04:11 Amylase 32 Units/L (25-115) 11/14/21 16:05 Lipase 174 Units/L (73-393) 11/14/21 16:05 Cortisol 12.3 ug/dL 11/14/21 16:05 Vancomycin Trough 14.9 ug/mL (15-20) L 11/22/21 01:11 Random Vancomycin 11.4 ug/mL 11/19/21 19:30 Rheumatoid Factor Negative (NEGATIVE) 11/21/21 04:15 SARS-CoV-2 (PCR) Negative (NEGATIVE) 11/13/21 18:58 Resp Viral Panel (PCR) See scanned report 11/17/21 10:01 Tissue Pathology To follow 11/17/21 10:00 - Plan (1) Cellulitis of right foot Status: Acute Plan: NORMAL SALINE AT 75 ML/HR, ALBUMIN 25% IV DAILY, BACTRIM DS 1 TABLET BID, RIFAMPIN, TEFLARO, LOVENOX, PEPCID, TORADOL 15MG IV Q12H PRN PAIN, DILAUDID 2MG IV Q4H PRN PAIN, PERCOCET 5/325MG PO Q4H PRN, AND ZOCOR 20MG PO HS. 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
[2021-11-23] MEDS: RESTORIL CAP 15 MG PO PRN (20:09)
[2021-11-23] MEDS: ZOCOR TAB 20 MG PO SCH (20:10)
[2021-11-23] MEDS: ROBITUSSIN DM PO PRN (20:11)
--- NOTE | 2021-11-23 21:58 | RAD ---
HISTORYpicc line placement Relevant Clinical InformationSTUDYCHEST, 1 [id number].FINDINGSThe right IJ catheter remains in position. A left-sided PICC line has been placed and is in good position near the caval atrial junction. The trachea is midline. The cardiac silhouette is enlarged but stable. There is a shallow respiration with some mild basilar atelectasis. The lungs are otherwise clear without focal infiltrate or effusion. The bony thorax is unremarkable.IMPRESSION1. Left-sided PICC line in good position. 2. Shallow respiration with bibasilar opacity suggestive of atelectasis.Electronically signed by: David Amaya (Nov 23, 2021 21:56:32)
--- NOTE | 2021-11-23 22:05 | PCM.PROG ---
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 WOUND CULTURES WERE POSITIVE FOR GROWTH OF MRSA. HE IS STATUS POST DEBRIDEMENT OF WOUNDS BY . HE ALSO HAS AN INFECTED RHEUMATOID NODULE AND CELLULITIS TO THE RIGHT ELBOW. TODAY, HE IS ALERT, LYING IN BED ON MORNING ROUNDS. HE CONTINUES TO COMPLAIN OF PAIN TO THE RIGHT ELBOW THIS MORNING. HE DENIES PAIN TO RIGHT LOWER EXTREMITY. ON EXAMINATION, HEART IS REGULAR IN RATE AND RHYTHM. BILATERAL LUNGS ARE NOTED WITH DIMINISHED LUNG SOUNDS THROUGHOUT. HE IS CURRENTLY UTILIZING OXYGEN AT 2 LPM. SATURATIONS HAVE REMAINED IN THE UPPER 90s. ABDOMEN IS ROUND, SOFT, AND NON-TENDER WITH NORMAL BOWEL SOUNDS NOTED IN ALL QUADRANTS. RIGHT FOOT IS OPEN TO AIR. THERE CONTINUES TO BE ERYTHEMA, EDEMA, AND THERE ARE MULTIPLE WOUNDS THAT HAVE BEEN DEBRIDED. THERE IS WHAT APPEARS TO BE A LARGE RHEUMATOID NODULE TO THE RIGHT ELBOW. NODULE HAS BEEN DRAINED AND THERE IS CURRENTLY PACKING IN THE WOUND. THERE IS ERYTHEMA AND EDEMA TO SITE. HIS VITALS THIS MORNING ARE: 99.4-100-30-91%-104/58. LABS WERE OBTAINED. WBC 10.9, RBC 3.21, HGB 9.6, HCT 28.6, SODIUM 138, POTASSIUM 4.1, BUN 36, CREATININE 2.23, GLUCOSE 104, CRP 150.60, TOTAL PROTEIN 6.5, ALBUMIN 2.1. BLOOD CULTURES ARE PENDING. WOUND CULTURES ARE POSITIVE FOR GROWTH OF MRSA. A LOWER EXTREMITY MRI WAS OBTAINED AND REVEALED: Cellulitis and large skin ulcer are seen without evidence of soft tissue abscess. Probable osteomyelitis is seen within the distal head and shaft of the 5th metatarsal. HE IS CURRENTLY RECEIVING NORMAL SALINE AT 75 ML/HR, ALBUMIN 25% IV DAILY, TEFLARO IV, RIFAMPIN 300MG PO BID, BACTRIM DS 1 TAB BID, LOVENOX 40 SC DAILY, PEPCID 20MG PO DAILY, XOPENEX NEB TX TID, TORADOL 15MG IV Q12H PRN PAIN, DILAUDID 2MG IV Q4H PRN PAIN, PERCOCET 5/325MG PO Q4H PRN, AND ZOCOR 20MG PO HS. HE WILL REQUIRE IV ANTIBIOTICS FOR 6 WEEKS FOLLOWING DISCHARGE. WE WILL CONSULT ANETHESIA FOR A PICC LINE. OTHERWISE, WE WILL CONTINUE WITH CURRENT PLAN OF CARE TODAY. WE PLAN TO FOLLOW-UP WITH AM LABS AND CONTINUE TO MONITOR. WILL FOLLOW FOR WOUND CARE. TIME SPENT ON CLINICAL ASSESSMENT, REVIEWING LABS AND IMAGING, DECISION MAKING, AND DOCUMENTATION GREATER THAN 45 MINUTES. - Past Medical Family Social History Past Med/Fam/Surg Hx: No changes since H&P Allergies: Allergies Penicillins Allergy (Verified 11/13/21 15:58) - Review of Systems ROS: No change since H&P - Vital Signs and I&O's Vital Signs: Temperature 101.4 F Pulse Rate [Radial] 114 Pulse Rate 101 Respiratory Rate 30 Blood Pressure [Right Arm] 92/54 Blood Pressure 125/64 O2 Sat by Pulse Oximetry 93 Intake and Output: Intake & Output 11/20/21 11/21/21 11/22/21 11/23/21 23:59 23:59 23:59 23:59 Intake Total 3926 / 3926 2441 / 2441 3988 / 3988 2265 / 2265 Output Total 850 / 850 1100 / 1100 1900 / 1900 500 / 500 Balance 3076 / 3076 1341 / 1341 2088 / 2088 1765 / 1765 - Physical Exam Oriented: Normal Eyes: Normal Ear: Normal Nose: Normal Throat: Normal Respiratory: Diminished Cardiovascular: Normal : Normal Auscultation: Bowel Sounds: Normal Tenderness: Normal Skin: Wound (RIGHT ELBOW WOUND, still draing small amount .), Other (open wound on the 1st metatarsal head . the rest of the open wound is clean with less cellulitis ) Musculoskeletal: Right, Foot, Swelling, Tender Psychiatric: Normal Mood Description: Calm Affect: Normal Speech Pattern: Clear, Appropriate - Laboratory and Diagnostics Result Diagrams: 11/23/21 04:11 11/23/21 04:11 Labs: 11/22/21 09:55 Elbow - Right Wound Culture - Preliminary 11/18/21 14:22 Blood Blood Culture - Preliminary 11/18/21 14:16 Blood Blood Culture - Preliminary 11/13/21 16:24 Blood Blood Culture - Final 11/13/21 16:16 Blood Blood Culture - Final 11/14/21 13:32 Foot - Right Wound Gram Stain - Final 11/14/21 13:32 Foot - Right Wound Culture - Final Methicillin Resis Staph Aureus 11/13/21 16:25 Foot - Right Wound Gram Stain - Final 11/13/21 16:25 Foot - Right Wound Culture - Final Methicillin Resis Staph Aureus Laboratory WBC 10.9 X10^3/uL (3.6-10.0) H 11/23/21 04:11 RBC 3.21 X10^6/uL (4.7-6.0) L 11/23/21 04:11 Hgb 9.6 g/dL (13.5-18.0) L 11/23/21 04:11 Hct 28.6 % (42.0-54.0) L 11/23/21 04:11 MCV 89.2 fL (80.0-100.0) 11/23/21 04:11 MCH 30.0 pg (27.0-34.0) 11/23/21 04:11 MCHC 33.6 g/dL (33.0-35.0) 11/23/21 04:11 RDW 14.5 % (11.6-16.5) 11/23/21 04:11 Plt Count 448 X10^3/uL (150.0-450.0) 11/23/21 04:11 Plt Count Comment Adequate (ADEQUATE) 11/13/21 16:16 MPV 8.1 fL (7.4-11.0) 11/23/21 04:11 Neut % (Auto) 74.4 % (42.0-75.0) 11/23/21 04:11 Lymph % (Auto) 13.4 % (21.0-51.0) L 11/23/21 04:11 [place] % (Auto) 7.0 % (0.0-13.0) 11/23/21 04:11 Eos % (Auto) 4.2 % (0.9-2.9) H 11/23/21 04:11 Baso % (Auto) 1.0 % (0.2-1.0) 11/23/21 04:11 Neut # (Auto) 8.1 x10^3/uL (2.2-4.8) H 11/23/21 04:11 Lymph # (Auto) 1.5 X10^3/uL (1.3-2.9) 11/23/21 04:11 [place] # (Auto) 0.8 x10^3/uL (0.3-0.8) 11/23/21 04:11 Eos # (Auto) 0.5 x10^3/uL (0.0-0.2) H 11/23/21 04:11 Baso # (Auto) 0.1 X10^3/uL (0.0-0.1) 11/23/21 04:11 Absolute Nucleated RBC 0.1 /100WBC 11/23/21 04:11 Total Counted 100 11/13/21 16:16 Neutrophils % (Manual) 92 % (39-76) H 11/13/21 16:16 Lymphocytes % (Manual) 7 % (13-43) L 11/13/21 16:16 Monocytes % (Manual) 1 % (4-9) L 11/13/21 16:16 Plt Morphology Comment Normal (NORMAL) 11/13/21 16:16 RBC Morphology Normal (NORMAL) 11/13/21 16:16 PT 17.7 SECONDS (11.8-14.3) 11/14/21 16:05 INR Target Range - 11/14/21 16:05 INR 1.51 (0.8-1.3) H 11/14/21 16:05 APTT 57.9 SECONDS (22.9-36.5) H 11/14/21 16:05 PTT Comment - 11/14/21 16:05 D-Dimer 3.83 ug/ml (0.0-0.57) H 11/15/21 13:55 Sample Site Lr 11/17/21 13:10 ABG pH 7.420 (7.35-7.45) 11/17/21 13:10 ABG pCO2 40.0 mmHg (35.0-45.0) 11/17/21 13:10 ABG pO2 73.0 mmHg (80.0-100.0) L 11/17/21 13:10 ABG HCO3 25.9 mmol/L (22-26) 11/17/21 13:10 ABG O2 Saturation 95.0 % (90-100) 11/17/21 13:10 ABG Base Excess 1.3 mmol/L (-2.0-2.0) 11/17/21 13:10 Farhan Test Pos 11/17/21 13:10 A-a Gradient 27.0 mmHg 11/17/21 13:10 FiO2 21.0 11/17/21 13:10 Blood Gas Comments Wilmer well cb 11/17/21 13:10 Sodium 138 mmol/L (136-145) 11/23/21 04:11 Corrected Sodium TNP 11/23/21 04:11 Potassium 4.1 mmol/L (3.5-5.1) 11/23/21 04:11 Chloride 104 mmol/L (98-107) 11/23/21 04:11 Carbon Dioxide 23.9 mmol/L (21-32) 11/23/21 04:11 BUN 36 mg/dL (7-18) H 11/23/21 04:11 Creatinine 2.23 mg/dL (0.70-1.30) H 11/23/21 04:11 Est GFR (MDRD) Af Amer 38 (>60) L 11/23/21 04:11 Est GFR (MDRD) Non-Af 31 (>60) L 11/23/21 04:11 Glucose 104 mg/dL (65-99) H 11/23/21 04:11 Lactic Acid 1.5 mmol/L (0.4-2.0) 11/18/21 14:16 Uric Acid 12.8 mg/dL (3.5-7.2) H 11/21/21 04:15 Calcium 8.2 mg/dL (8.5-10.1) L 11/23/21 04:11 Corrected Calcium 9.7 mg/dL (8.5-10.1) 11/23/21 04:11 Phosphorus 3.8 mg/dL (2.6-4.7) 11/14/21 16:05 Magnesium 2.0 mg/dL (1.7-2.9) 11/14/21 16:05 Total Bilirubin 0.40 mg/dL (0.2-1.0) 11/23/21 04:11 AST 34 Units/L (15-37) 11/23/21 04:11 ALT 36 Units/L (12-78) 11/23/21 04:11 Alkaline Phosphatase 72 Units/L (46-116) 11/23/21 04:11 Creatine Kinase 165 Units/L (39-308) 11/14/21 05:19 CK-MB (CK-2) < 1.0 ng/mL (0-4.0) 11/14/21 05:19 CK/CKMB % Calc 0.6 % (<4) 11/14/21 05:19 Troponin I High Sens 6.6 ng/L (4.0-60.0) 11/14/21 05:19 C-Reactive Protein 150.60 mg/L (0-3.0) H 11/23/21 04:11 B-Natriuretic Peptide 18.9 pg/mL (0-79) 11/20/21 04:38 Total Protein 6.5 g/dL (6.4-8.2) 11/23/21 04:11 Albumin 2.1 g/dL (3.4-5.0) L 11/23/21 04:11 Globulin 4.4 g/dL (2.5-4.5) 11/23/21 04:11 Albumin/Globulin Ratio 0.5 Ratio (1.1-2.1) L 11/23/21 04:11 Amylase 32 Units/L (25-115) 11/14/21 16:05 Lipase 174 Units/L (73-393) 11/14/21 16:05 Cortisol 12.3 ug/dL 11/14/21 16:05 Vancomycin Trough 14.9 ug/mL (15-20) L 11/22/21 01:11 Random Vancomycin 11.4 ug/mL 11/19/21 19:30 Rheumatoid Factor Negative (NEGATIVE) 11/21/21 04:15 SARS-CoV-2 (PCR) Negative (NEGATIVE) 11/13/21 18:58 Resp Viral Panel (PCR) See scanned report 11/17/21 10:01 Tissue Pathology To follow 11/17/21 10:00 Procedures (ALL) - Central Line Placement PCM.CLCO: written consent Time out performed: Yes Patient placed pm monitor/pulse ox: Yes MD prep: mask, gown, gloves, other Centrial line prep: povidone-iodine 1%, chlorhexidine scrub, sterile drapes rosi lied, other (MSBT) Local anesthsia used: lidocane 1% Ultrasound used for placement: Yes Central line lumen ininserted: double (PICC to left arm, x1 attempt, tolerated well, biopatch, statlock, sterile tegaderm to site.) Post procedure: sutured in place, good blood return, all ports aspirated, flushe d,capped, sterile dressing applied Post procedure xray: tip oc catheter in good position, no pneumothorax seen, other Patient tolerated procedure: Yes Complications: none
[2021-11-24] MEDS: NS 1,000 ML IV 1,000 ML IV SCH ×2 (00:34→04:00)
[2021-11-24 05:27] LABS: BASOPHILS % (AUTO) 0.5 % (0.2-1.0); EOSINOPHILS # (AUTO) 0.4 x10^3/uL (0.0-0.2); EOSINOPHILS % (AUTO) 3.9 % (0.9-2.9); HEMATOCRIT 25.3 % (42.0-54.0); HEMOGLOBIN 8.7 g/dL (13.5-18.0); LYMPHOCYTES # (AUTO) 1.3 X10^3/uL (1.3-2.9); MEAN CORPUSCULAR HEMOGLOBIN 30.2 pg (27.0-34.0); MEAN CORPUSCULAR HGB CONC 34.3 g/dL (33.0-35.0); MEAN PLATELET VOLUME 8.1 fL (7.4-11.0); MONOCYTES # (AUTO) 0.8 x10^3/uL (0.3-0.8); MONOCYTES % (AUTO) 7.9 % (0.0-13.0); NEUTROPHILS # (AUTO) 8.2 x10^3/uL (2.2-4.8); NEUTROPHILS % (AUTO) 75.7 % (42.0-75.0); RED BLOOD COUNT 2.88 X10^6/uL (4.7-6.0); RED CELL DISTRIBUTION WIDTH 14.8 % (11.6-16.5); WHITE BLOOD COUNT 10.8 X10^3/uL (3.6-10.0)
[2021-11-24 05:41] LABS: ALBUMIN 2.1 g/dL (3.4-5.0); CALCIUM 7.8 mg/dL (8.5-10.1); CARBON DIOXIDE 21.4 mmol/L (21-32); COR CA(FOR HYPOALB) 9.3 mg/dL (8.5-10.1); CREATININE 2.12 mg/dL (0.70-1.30); TOTAL PROTEIN 6.2 g/dL (6.4-8.2)
[2021-11-24] MEDS: XOPENEX 1.25 MG/3 ML NEBULE NEB SCH (06:00)
[2021-11-24] MEDS: BACTRIM DS TAB PO SCH (08:11)
[2021-11-24] MEDS: VANCOMYCIN IV *PREMIX 1.5 G/300 ML BAG 1.5 G/300 ML PIGGYBACK IV SCH (08:12)
[2021-11-24] MEDS: RIFADIN PO SCH (08:12)
[2021-11-24] MEDS: PEPCID TAB 20 MG PO SCH (08:12)
[2021-11-24] MEDS: MILK OF MAGNESIA PO SCH (08:21)
[2021-11-24] MEDS: NYSTATIN POWDER TOP SCH (08:21)
[2021-11-24] MEDS: PERCOCET TAB 5/325 MG PO PRN (08:22)
[2021-11-24] MEDS: LOVENOX INJ 40 MG SYR SC SCH (08:34)
[2021-11-24] MEDS ORDERED: STERILE WATER IRRIGATION IR ONE (10:08)
[2021-11-24] MEDS ORDERED: HYDROGEN PEROXIDE 3% ONE (10:09)
--- NOTE | 2021-11-24 10:35 | DR.PROGNOT ---
Hospital Progress Notes - Progress Note for Day of: Progress Note Date: 11/24/21 - Chief Complaint Chief Complaint: improving with mild erythema of the skin. mild drainage .. less pain . Creat 2 BUN 21.. WBC 10.7. afebrile .. - Past Medical Family Social History Past Med/Fam/Surg Hx: No changes since H&P Allergies: Allergies Penicillins Allergy (Verified 11/13/21 15:58) - Review Of Systems ROS: No change since H&P - Vital Signs Vital Signs: Temperature 98.8 F Pulse Rate [Radial] 114 Pulse Rate 92 Respiratory Rate 30 Blood Pressure [Right Arm] 92/54 Blood Pressure 108/61 O2 Sat by Pulse Oximetry 94 - Physical Exam Oriented: Normal Eyes: Normal Ear: Normal Nose: Normal Throat: Normal Respiratory: Diminished Cardiovascular: Normal : Normal GI:Auscultation: Normal GI:Palpation: Normal GI: Tenderness: Normal Skin: Wound (RIGHT ELBOW WOUND, still draing small amount .), Other (open wound on the 1st metatarsal head . the rest of the open wound is clean with less cellulitis ) Musculoskeletal: Right, Foot, Swelling, Tender Psychiatric: Normal Mood Description: Calm Affect: Normal Speech Pattern: Clear, Appropriate - Laboratory and Diagnostics Result Diagrams: 11/24/21 04:20 11/24/21 04:20 Labs: 11/22/21 21:32 Neck Wound Gram Stain - Final 11/22/21 21:32 Neck Wound Culture - Preliminary 11/22/21 09:55 Elbow - Right Wound Culture - Preliminary 11/21/21 20:45 Blood Blood Culture - Preliminary 11/21/21 20:35 Blood Blood Culture - Preliminary 11/18/21 14:22 Blood Blood Culture - Final 11/18/21 14:16 Blood Blood Culture - Final 11/13/21 16:24 Blood Blood Culture - Final 11/13/21 16:16 Blood Blood Culture - Final 11/14/21 13:32 Foot - Right Wound Gram Stain - Final 11/14/21 13:32 Foot - Right Wound Culture - Final Methicillin Resis Staph Aureus 11/13/21 16:25 Foot - Right Wound Gram Stain - Final 11/13/21 16:25 Foot - Right Wound Culture - Final Methicillin Resis Staph Aureus Laboratory WBC 10.8 X10^3/uL (3.6-10.0) H 11/24/21 04:20 RBC 2.88 X10^6/uL (4.7-6.0) L 11/24/21 04:20 Hgb 8.7 g/dL (13.5-18.0) L 11/24/21 04:20 Hct 25.3 % (42.0-54.0) L 11/24/21 04:20 MCV 88.0 fL (80.0-100.0) 11/24/21 04:20 MCH 30.2 pg (27.0-34.0) 11/24/21 04:20 MCHC 34.3 g/dL (33.0-35.0) 11/24/21 04:20 RDW 14.8 % (11.6-16.5) 11/24/21 04:20 Plt Count 431 X10^3/uL (150.0-450.0) 11/24/21 04:20 Plt Count Comment Adequate (ADEQUATE) 11/13/21 16:16 MPV 8.1 fL (7.4-11.0) 11/24/21 04:20 Neut % (Auto) 75.7 % (42.0-75.0) H 11/24/21 04:20 Lymph % (Auto) 12.0 % (21.0-51.0) L 11/24/21 04:20 [place] % (Auto) 7.9 % (0.0-13.0) 11/24/21 04:20 Eos % (Auto) 3.9 % (0.9-2.9) H 11/24/21 04:20 Baso % (Auto) 0.5 % (0.2-1.0) 11/24/21 04:20 Neut # (Auto) 8.2 x10^3/uL (2.2-4.8) H 11/24/21 04:20 Lymph # (Auto) 1.3 X10^3/uL (1.3-2.9) 11/24/21 04:20 [place] # (Auto) 0.8 x10^3/uL (0.3-0.8) 11/24/21 04:20 Eos # (Auto) 0.4 x10^3/uL (0.0-0.2) H 11/24/21 04:20 Baso # (Auto) 0.0 X10^3/uL (0.0-0.1) 11/24/21 04:20 Absolute Nucleated RBC 0.0 /100WBC 11/24/21 04:20 Total Counted 100 11/13/21 16:16 Neutrophils % (Manual) 92 % (39-76) H 11/13/21 16:16 Lymphocytes % (Manual) 7 % (13-43) L 11/13/21 16:16 Monocytes % (Manual) 1 % (4-9) L 11/13/21 16:16 Plt Morphology Comment Normal (NORMAL) 11/13/21 16:16 RBC Morphology Normal (NORMAL) 11/13/21 16:16 PT 17.7 SECONDS (11.8-14.3) 11/14/21 16:05 INR Target Range - 11/14/21 16:05 INR 1.51 (0.8-1.3) H 11/14/21 16:05 APTT 57.9 SECONDS (22.9-36.5) H 11/14/21 16:05 PTT Comment - 11/14/21 16:05 D-Dimer 3.83 ug/ml (0.0-0.57) H 11/15/21 13:55 Sample Site Lr 11/17/21 13:10 ABG pH 7.420 (7.35-7.45) 11/17/21 13:10 ABG pCO2 40.0 mmHg (35.0-45.0) 11/17/21 13:10 ABG pO2 73.0 mmHg (80.0-100.0) L 11/17/21 13:10 ABG HCO3 25.9 mmol/L (22-26) 11/17/21 13:10 ABG O2 Saturation 95.0 % (90-100) 11/17/21 13:10 ABG Base Excess 1.3 mmol/L (-2.0-2.0) 11/17/21 13:10 Farhan Test Pos 11/17/21 13:10 A-a Gradient 27.0 mmHg 11/17/21 13:10 FiO2 21.0 11/17/21 13:10 Blood Gas Comments Wilmer well cb 11/17/21 13:10 Sodium 135 mmol/L (136-145) L 11/24/21 04:20 Corrected Sodium 135 mmol/L (136-145) L 11/24/21 04:20 Potassium 4.2 mmol/L (3.5-5.1) 11/24/21 04:20 Chloride 105 mmol/L (98-107) 11/24/21 04:20 Carbon Dioxide 21.4 mmol/L (21-32) 11/24/21 04:20 BUN 26 mg/dL (7-18) H 11/24/21 04:20 Creatinine 2.12 mg/dL (0.70-1.30) H 11/24/21 04:20 Est GFR (MDRD) Af Amer 40 (>60) L 11/24/21 04:20 Est GFR (MDRD) Non-Af 33 (>60) L 11/24/21 04:20 Glucose 111 mg/dL (65-99) H 11/24/21 04:20 Lactic Acid 1.5 mmol/L (0.4-2.0) 11/18/21 14:16 Uric Acid 12.8 mg/dL (3.5-7.2) H 11/21/21 04:15 Calcium 7.8 mg/dL (8.5-10.1) L 11/24/21 04:20 Corrected Calcium 9.3 mg/dL (8.5-10.1) 11/24/21 04:20 Phosphorus 3.8 mg/dL (2.6-4.7) 11/14/21 16:05 Magnesium 2.0 mg/dL (1.7-2.9) 11/14/21 16:05 Total Bilirubin 0.50 mg/dL (0.2-1.0) 11/24/21 04:20 AST 26 Units/L (15-37) 11/24/21 04:20 ALT 27 Units/L (12-78) 11/24/21 04:20 Alkaline Phosphatase 64 Units/L (46-116) 11/24/21 04:20 Creatine Kinase 165 Units/L (39-308) 11/14/21 05:19 CK-MB (CK-2) < 1.0 ng/mL (0-4.0) 11/14/21 05:19 CK/CKMB % Calc 0.6 % (<4) 11/14/21 05:19 Troponin I High Sens 6.6 ng/L (4.0-60.0) 11/14/21 05:19 C-Reactive Protein 115.70 mg/L (0-3.0) H 11/24/21 04:20 B-Natriuretic Peptide 18.9 pg/mL (0-79) 11/20/21 04:38 Total Protein 6.2 g/dL (6.4-8.2) L 11/24/21 04:20 Albumin 2.1 g/dL (3.4-5.0) L 11/24/21 04:20 Globulin 4.1 g/dL (2.5-4.5) 11/24/21 04:20 Albumin/Globulin Ratio 0.5 Ratio (1.1-2.1) L 11/24/21 04:20 Amylase 32 Units/L (25-115) 11/14/21 16:05 Lipase 174 Units/L (73-393) 11/14/21 16:05 Cortisol 12.3 ug/dL 11/14/21 16:05 Vancomycin Trough 14.9 ug/mL (15-20) L 11/22/21 01:11 Random Vancomycin 11.4 ug/mL 11/19/21 19:30 Rheumatoid Factor Negative (NEGATIVE) 11/21/21 04:15 SARS-CoV-2 (PCR) Negative (NEGATIVE) 11/13/21 18:58 Resp Viral Panel (PCR) See scanned report 11/17/21 10:01 Tissue Pathology To follow 11/17/21 10:00 - Assessment and Plan 2: 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 s/p debridement , improving .. strong suspicioun of osteomyelitis 1st and 5th metatarsals. skin abscess RT elbow ( RA ) was I&D ed. same IV ABT for 6 weeks .. and local care . to change central line and place PIC line Lt arm .. future skin graft RT foot .. 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
[2021-11-24] MEDS: ALBUMIN HUMAN 25%- 100 ML 100 ML IV SCH (11:22)
[2021-11-24 13:10] VITALS: BP 124/71
[2021-11-26] MEDS ORDERED: PHARMACY COMMENT IV NR (08:30)
== END 2021-11-24 12:55 | disposition home health service (06) | DRG 853 ==
LOC: MED/SURG → OBSVTOIN 15:31 → ICU 11-14 14:44
PROVIDERS: ADMIT Internal Medicine; ATTEND Internal Medicine
DX: L03.115 Cellulitis of right lower limb; R09.89 Other specified symptoms and signs involving the circulatory and respiratory systems; R06.02 Shortness of breath; R60.0 Localized edema; L02.611 Cutaneous abscess of right foot; N17.8 Other acute kidney failure; B95.7 Other staphylococcus as the cause of diseases classified elsewhere; I87.2 Venous insufficiency (chronic) (peripheral); M06.322 Rheumatoid nodule, left elbow; Z20.822 Contact with and (suspected) exposure to COVID-19; R65.21 Severe sepsis with septic shock; A49.02 Methicillin resistant Staphylococcus aureus infection, unspecified site; I96 Gangrene, not elsewhere classified; E78.2 Mixed hyperlipidemia; R79.82 Elevated C-reactive protein (CRP); R26.81 Unsteadiness on feet; M86.8X7 Other osteomyelitis, ankle and foot

== ENCOUNTER 2021-12-15 09:19 | Observation (INO) ==
[2021-12-15] MEDS ORDERED: NS 100 ML IV 100 ML ONE ×2 (09:34→21:19)
[2021-12-15] MEDS ORDERED: ANCEF VIAL 1 GRAM ONE (09:34)
[2021-12-15] MEDS ORDERED: LR 1,000 ML IV 1,000 ML IV ONE (09:36)
[2021-12-15] MEDS ORDERED: VERSED ONE (10:16)
[2021-12-15] MEDS ORDERED: DIPRIVAN VIAL 20 ML ONE (10:16)
[2021-12-15] MEDS ORDERED: FENTANYL VIAL INJ 100 mcg ONE (10:17)
[2021-12-15] MEDS ORDERED: BETADINE SOLN ONE (10:59)
[2021-12-15] MEDS ORDERED: SUPRANE ONE (11:10)
[2021-12-15] MEDS ORDERED: ZOFRAN INJ 4 MG VIAL ONE (11:23)
[2021-12-15] MEDS ORDERED: EPHEDRINE SULFATE INJ ONE (11:26)
[2021-12-15] MEDS ORDERED: MARCAINE/EPINEPHRINE ONE (11:37)
[2021-12-15] MEDS ORDERED: POLYMYXIN B SULFATE ONE (11:50)
[2021-12-15] MEDS ORDERED: PHENERGAN INJ 25 MG IM PRN (12:53)
[2021-12-15] MEDS ORDERED: ZOFRAN INJ 4 MG VIAL IVP PRN (12:53)
[2021-12-15] MEDS ORDERED: BENADRYL INJ 50 MG VIAL IVP PRN (12:53)
[2021-12-15] MEDS ORDERED: DILAUDID INJ IVP PRN (12:53)
[2021-12-15] MEDS ORDERED: REGLAN INJ 10 MG VIAL IVP PRN (12:53)
[2021-12-15] MEDS ORDERED: BARHEMSYS INJ IVP PRN (12:53)
[2021-12-15] MEDS ORDERED: NS 50 ML IV 50 ML IV ONE (14:29)
[2021-12-15] MEDS: ANCEF VIAL 1 GRAM IV SCH ×2 (14:32→21:23)
[2021-12-15] MEDS ORDERED: RESTORIL CAP 15 MG PO PRN (21:15)
[2021-12-15] MEDS ORDERED: RESTORIL CAP 15 MG PO ONE (21:19)
[2021-12-15] MEDS: PERCOCET TAB 5/325 MG PO PRN (21:23)
[2021-12-16] MEDS: PERCOCET TAB 5/325 MG PO PRN ×2 (04:16→14:18)
[2021-12-16] MEDS: ANCEF VIAL 1 GRAM IV SCH ×2 (05:00→13:08)
[2021-12-16 12:28] VITALS: BP 118/72
[2021-12-16] MEDS ORDERED: NS 100 ML IV 100 ML ONE (13:05)
== END 2021-12-16 14:30 | disposition home or self-care (01) ==
LOC: SURG1 09:19 → MED/SURG 09:19
PROVIDERS: ADMIT Surgery; ATTEND Surgery
DX: S91.301D Unspecified open wound, right foot, subsequent encounter; L97.519 Non-pressure chronic ulcer of other part of right foot with unspecified severity; M86.271 Subacute osteomyelitis, right ankle and foot; X58.XXXD Exposure to other specified factors, subsequent encounter; Z20.822 Contact with and (suspected) exposure to COVID-19

== ENCOUNTER 2022-01-04 07:43 | Observation (INO) ==
[2022-01-04 07:51] VITALS: BMI 30.3
--- NOTE | 2022-01-04 08:22 | DR.CP ---
HPI Time Seen Time Seen by Provider: 01/04/22 08:05 PCP Primary Care Physician: SAI HPI Comment HPI Comment: PATIENT IS 66YR OLD MALE IN ER WITH CHEST PAIN. 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 DENIES FEVER OR COUGH OR CONGESTION. PAIN RELIEF WITH TOMS. PAIN CAME BACK AT 02:00AM AND AGAIN RELIEF WITH TUS. PATIENT HAD PAIN THE 3RD TIME AT 06:30AM TODAY AND AGIN EASED UP WITH TUMS. HE IS TAKING VANCOMYCIN FOR FOOT INFECTION CURRENT. DENIES NAUSEA, VOMITING OR DIARRHEA. HAVE INDWELLING PICC LINE FOR IV ANTIBIOTIC THERAPY. Complaint Chief Complaint Doctor Comments: CHEST PAIN. Chief Complaint:: CHEST PAIN STARTED LAST NIGHT. TOOK TUMS AND PAIN EASED OFF. AROUND 0200 PT STATES HE COULDN'T SLEEP AND SAT UP, CHEST PAIN STARTED, TOOK TUMS, "EASED OFF" PAIN. 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; AND DAUGHTER MANAGE MEDICATION ADMINISTRATION COVID-19 Coronavirus risk:travel/contact w/high risk person: No Has patient experienced Coronavirus symptoms: No Reviewed Nurses Notes Review: Yes Source History Provided: Patient Mode of Arrival Mode of Arrival: Ambulatory Timing Onset of Chief Complaint: 01/03/22 Came on: Suddenly Pain: Resolved Duration Duration: Intermittent Duration: Hours Location Location of Chest Pain: Left and Chest Context Onset: At rest Cardiac Risk Factors: HTN PE Risk Factors: None History of: None Quality Quality: Sharp Severity Severity: Moderate Modifying Factors Worsens: Exertion Impoves: Other (TOMS) Associated Signs and Symptoms Associated Signs and Symptoms: Shortness of Breath (ON EXERTION.) PMH PMH Past Medical History: Yes Past Medical History: Dyslipidemia and Hypertension Past Medical History Comment: CELLULITIS OF RIGHT FOOT Past Surgical History: Yes Surgical History: Appendectomy Past Surgical History Comment: SURGICAL REPAIR FOR GANGRENE AND SKIN GRAFT TO RIGHT FOOT Family History History of Family Medical Conditions: Yes Family Medical History: Hypertension Social History Does any household member use tobacco: No Alcohol Use: None Do you use any recreational Drugs:: No Lives With: Spouse Lives Where: Home Travel Risk Coronavirus risk:travel/contact w/high risk person: No Has patient experienced Coronavirus symptoms: No Infectious screening In the last 2 months have you had wt loss of >10#?: NO Have you had fever, night sweats or hemotysis?: No Have you traveled outside the country in the last 6 months?: No Isolation: Standard ROS Review of Systems Constitutional: See HPI, Weakness and Fatigue; negative Fever Eyes: No Symptoms Reported and See HPI ENTM: No Symptoms Reported and See HPI Respiratoy: No Symptoms Reported and See HPI; negative Moist Cough or Short of Breath Cardiovascular: See HPI and Chest Pain Gastrointestinal/Abdominal: No Symptoms Reported and See HPI; negative Abdominal Pain, Diarrhea, Nausea or Vomiting Genitourinary: No Symptoms Reported and See HPI; negative Dysuria Neurological: See HPI and Weakness; negative Headache or Dizziness Musculoskeletal: No Symptoms Reported and See HPI; negative Muscle Pain Integumentary: No Symptoms Reported and See HPI; negative Rash or Juandice Hematologic/Lymphatic: No Symptoms Reported and See HPI; negative Easy Bruising Endocrine: No Symptoms Reported and See HPI Psychiatric: No Symptoms Reported and See HPI All Other Systems: Reviewed and Negative PE Vitals Vitals: Temperature 98.7 F Pulse Rate 81 Respiratory Rate 15 Blood Pressure [Left Arm] 118/72 Blood Pressure 116/80 O2 Sat by Pulse Oximetry 98 General Limitations: No Limitations General Appearance: Alert and In No Apparent Distress Head Head Exam: Normal Inspection Eyes Eye exam: Normal Appearance; negative Scleral Icterus or Conjunctival Injection ENT ENT Exam: Normal Exam, Normal Oropharynx, Normal External Ear Exam and TM's Normal Bilaterally Chest Chest Inspection: Normal Inspection and Symmetric Chest Wall Rise; negative Tend erness Respiratory Respiratory Exam: Normal Lung Sounds Bilat; negative Accessory Muscle Use, Chest Wall Tenderness or Respiratory Distress Respiratory Exam: Bilateral: Clear to Auscultation Cardiovascular Cardiovascular Exam: Regular Rate and Normal Rhythm; negative Systolic Murmur or Diastolic Murmur Pulse: Normal Abdominal Exam Abdominal Exam: Normal Inspection, Normal Bowel Sounds and Soft; negative Tenderness Extremities Extremities Exam: Normal Inspection and Normal Capillary Refill Back Back Exam: Normal Inspection; negative (R) CVA Tenderness or (L) CVA Tenderness Neurologic Neurological Exam: Alert and Oriented X3; negative Motor Sensory Deficit Psychiatric Psychiatric Exam: Normal Affect and Normal Mood Skin Skin Exam: Intact MDM Differential Diagnosis Differential Diagnosis: Angina, Chest Wall Pain, Cholelithasis, CHF, Costochondritis, Esophageal Reflux/Spasm, Gastritis, Myocardial Infarction, Pericarditis, Pneumonia and Pneumothorax COURSE Treatment Treatment: SEE ORDERS DONE WHILE PATIENT WAS IN ER. LABS AND XRAY DISCUSSED WITH PATIENT. Education/Counseling Education/Counseling: Patient and Family Educated On: Diagnosis ROR Labs Reviewed Laboratory Results Reviewed?: Yes Result Diagrams: 01/04/22 08:13 01/04/22 08:13 Laboratory: WBC 5.0 X10^3/uL (3.6-10.0) 01/04/22 08:13 RBC 3.47 X10^6/uL (4.7-6.0) L 01/04/22 08:13 Hgb 10.4 g/dL (13.5-18.0) L 01/04/22 08:13 Hct 30.5 % (42.0-54.0) L 01/04/22 08:13 MCV 87.9 fL (80.0-100.0) 01/04/22 08:13 MCH 30.1 pg (27.0-34.0) 01/04/22 08:13 MCHC 34.3 g/dL (33.0-35.0) 01/04/22 08:13 RDW 14.4 % (11.6-16.5) 01/04/22 08:13 Plt Count 265 X10^3/uL (150.0-450.0) 01/04/22 08:13 MPV 7.8 fL (7.4-11.0) 01/04/22 08:13 Neut % (Auto) 62.3 % (42.0-75.0) 01/04/22 08:13 Lymph % (Auto) 20.9 % (21.0-51.0) L 01/04/22 08:13 [place] % (Auto) 9.4 % (0.0-13.0) 01/04/22 08:13 Eos % (Auto) 4.3 % (0.9-2.9) H 01/04/22 08:13 Baso % (Auto) 3.1 % (0.2-1.0) H 01/04/22 08:13 Neut # (Auto) 3.1 x10^3/uL (2.2-4.8) 01/04/22 08:13 Lymph # (Auto) 1.0 X10^3/uL (1.3-2.9) L 01/04/22 08:13 [place] # (Auto) 0.5 x10^3/uL (0.3-0.8) 01/04/22 08:13 Eos # (Auto) 0.2 x10^3/uL (0.0-0.2) 01/04/22 08:13 Baso # (Auto) 0.2 X10^3/uL (0.0-0.1) H 01/04/22 08:13 Absolute Nucleated RBC 0.0 /100WBC 01/04/22 08:13 PT 15.9 SECONDS (11.8-14.3) 01/04/22 08:13 INR Target Range - 01/04/22 08:13 INR 1.32 (0.8-1.3) H 01/04/22 08:13 APTT 36.6 SECONDS (22.9-36.5) H 01/04/22 08:13 PTT Comment - 01/04/22 08:13 Sodium 137 mmol/L (136-145) 01/04/22 08:13 Corrected Sodium 137 mmol/L (136-145) 01/04/22 08:13 Potassium 4.4 mmol/L (3.5-5.1) 01/04/22 08:13 Chloride 103 mmol/L (98-107) 01/04/22 08:13 Carbon Dioxide 22.9 mmol/L (21-32) 01/04/22 08:13 BUN 29 mg/dL (7-18) H 01/04/22 08:13 Creatinine 3.19 mg/dL (0.70-1.30) H 01/04/22 08:13 Est GFR (MDRD) Af Amer 25 (>60) L 01/04/22 08:13 Est GFR (MDRD) Non-Af 21 (>60) L 01/04/22 08:13 Glucose 117 mg/dL (65-99) H 01/04/22 08:13 Calcium 9.1 mg/dL (8.5-10.1) 01/04/22 08:13 Corrected Calcium 9.8 mg/dL (8.5-10.1) 01/04/22 08:13 Magnesium 1.8 mg/dL (1.7-2.9) 01/04/22 08:13 Total Bilirubin 0.20 mg/dL (0.2-1.0) 01/04/22 08:13 AST 11 Units/L (15-37) L 01/04/22 08:13 ALT 10 Units/L (12-78) L 01/04/22 08:13 Alkaline Phosphatase 73 Units/L (46-116) 01/04/22 08:13 Creatine Kinase 35 Units/L (39-308) L 01/04/22 08:13 Troponin I High Sens 30.2 ng/L (4.0-60.0) 01/04/22 08:13 B-Natriuretic Peptide 11.7 pg/mL (0-79) 01/04/22 08:13 Total Protein 7.5 g/dL (6.4-8.2) 01/04/22 08:13 Albumin 3.1 g/dL (3.4-5.0) L 01/04/22 08:13 Globulin 4.4 g/dL (2.5-4.5) 01/04/22 08:13 Albumin/Globulin Ratio 0.7 Ratio (1.1-2.1) L 01/04/22 08:13 XRAY XRAY Interpreted by: Radiologist (REPORT NOTED.) and Self EKG Rate: 93 [place]: Normal Rhythm: NSR Block: None Hypertrophy: None ST: Normal Opioid Opioid Risk Tool Age (Hubert box if 16-45): No History of Preadolescent Sexual Abuse: No Total: 0 Total Score Risk Category: Low Risk Copyright: Shahid MEJIA predicting aberrant behaviors Discharge Plan Diagnosis Discharge Problem: Chest pain, Right foot infection Discharge Plan Patient Disposition: 01 HOME, SELF-CARE Condition: Stable Orders to Discharge Patient Discharge Orders: Transfer (Routine); Ordered 01/04/22 Ordered By: JAZZY FALK
[2022-01-04 08:24] LABS: BASOPHILS # (AUTO) 0.2 X10^3/uL (0.0-0.1); BASOPHILS % (AUTO) 3.1 % (0.2-1.0); EOSINOPHILS # (AUTO) 0.2 x10^3/uL (0.0-0.2); EOSINOPHILS % (AUTO) 4.3 % (0.9-2.9); HEMATOCRIT 30.5 % (42.0-54.0); HEMOGLOBIN 10.4 g/dL (13.5-18.0); LYMPHOCYTES % (AUTO) 20.9 % (21.0-51.0); MEAN CORPUSCULAR HEMOGLOBIN 30.1 pg (27.0-34.0); MEAN CORPUSCULAR HGB CONC 34.3 g/dL (33.0-35.0); MEAN CORPUSCULAR VOLUME 87.9 fL (80.0-100.0); MEAN PLATELET VOLUME 7.8 fL (7.4-11.0); MONOCYTES # (AUTO) 0.5 x10^3/uL (0.3-0.8); MONOCYTES % (AUTO) 9.4 % (0.0-13.0); NEUTROPHILS # (AUTO) 3.1 x10^3/uL (2.2-4.8); NEUTROPHILS % (AUTO) 62.3 % (42.0-75.0); RED BLOOD COUNT 3.47 X10^6/uL (4.7-6.0); RED CELL DISTRIBUTION WIDTH 14.4 % (11.6-16.5)
[2022-01-04 08:28] LABS: INR 1.32 (0.8-1.3)
--- NOTE | 2022-01-04 08:29 | RAD ---
HISTORYChest painSTUDYChest AP [id number]/21/2022FINDINGSTher e is a left-sided PICC line in good position. Heart size is normal. [place] are normal. Lung dowling are clear. No pleural effusions are identified. Bony thorax is unremarkable.IMPRESSIONNo significant abnormality identifiedElectronically signed by: LORENZO FINN (Jan 04, 2022 08:27:10)
[2022-01-04 08:36] LABS: ALBUMIN 3.1 g/dL (3.4-5.0); CALCIUM 9.1 mg/dL (8.5-10.1); CARBON DIOXIDE 22.9 mmol/L (21-32); COR CA(FOR HYPOALB) 9.8 mg/dL (8.5-10.1); CREATININE 3.19 mg/dL (0.70-1.30); MAGNESIUM 1.8 mg/dL (1.7-2.9); TOTAL PROTEIN 7.5 g/dL (6.4-8.2)
[2022-01-04] MEDS ORDERED: PROTONIX INJ 40 MG VIAL IVP ONE (09:38)
[2022-01-04] MEDS ORDERED: PROTONIX INJ 40 MG VIAL ONE (09:41)
[2022-01-04 10:53] LABS: CREATININE 3.08 mg/dL (0.70-1.30); VANCOMYCIN,TROUGH 19.6 ug/mL (15-20)
[2022-01-04 11:16] LABS: AMYLASE 48 Units/L (25-115); LIPASE 105 Units/L (73-393)
[2022-01-04] MEDS: NS 1,000 ML IV 1,000 ML IV SCH ×2 (13:19→21:48)
[2022-01-04 15:22] LABS: BILIRUBIN,URINE NEGATIVE (NEGATIVE); BLOOD/HEMOGLOBIN,URINE 1+ (NEGATIVE); GLUCOSE, URINE NEGATIVE (NEGATIVE); KETONES,URINE NEGATIVE (NEGATIVE); LEUKOCYTE ESTERASE ,URINE 1+ (NEGATIVE); NITRITES,URINE NEGATIVE (NEGATIVE); PROTEIN,URINE NEGATIVE (NEGATIVE); UROBILINOGEN,URINE NORMAL (NORMAL)
[2022-01-04 15:44] LABS: APPEARANCE,URINE CLEAR (CLEAR); COLOR,URINE PALE YELLOW (YELLOW)
[2022-01-04 15:59] LABS: BACTERIA,URINE TRACE /HPF (NEGATIVE); RBC,URINE 0-2 /HPF (0-3); SQUAMOUS EPITHELIAL CELL,UR RARE /HPF (NEGATIVE)
[2022-01-04] MEDS ORDERED: NS IRRIGATION* 500 ML IR ONE (16:27)
[2022-01-04] MEDS: PROTONIX INJ 40 MG VIAL IVP SCH (22:23)
[2022-01-05] MEDS: NS 1,000 ML IV 1,000 ML IV SCH ×2 (01:47→05:16)
[2022-01-05 05:53] LABS: BASOPHILS # (AUTO) 0.1 X10^3/uL (0.0-0.1); BASOPHILS % (AUTO) 1.5 % (0.2-1.0); EOSINOPHILS # (AUTO) 0.2 x10^3/uL (0.0-0.2); EOSINOPHILS % (AUTO) 3.7 % (0.9-2.9); HEMOGLOBIN 9.6 g/dL (13.5-18.0); LYMPHOCYTES # (AUTO) 1.1 X10^3/uL (1.3-2.9); LYMPHOCYTES % (AUTO) 22.5 % (21.0-51.0); MEAN CORPUSCULAR HGB CONC 34.2 g/dL (33.0-35.0); MEAN CORPUSCULAR VOLUME 87.7 fL (80.0-100.0); MEAN PLATELET VOLUME 7.8 fL (7.4-11.0); MONOCYTES # (AUTO) 0.5 x10^3/uL (0.3-0.8); NEUTROPHILS # (AUTO) 3.1 x10^3/uL (2.2-4.8); NEUTROPHILS % (AUTO) 62.3 % (42.0-75.0); RED CELL DISTRIBUTION WIDTH 14.6 % (11.6-16.5)
[2022-01-05 06:10] LABS: ALANINE AMINOTRANSFERASE 10 Units/L (12-78); ALBUMIN 2.6 g/dL (3.4-5.0); ALKALINE PHOSPHATASE 63 Units/L (46-116); ASPARTATE AMINO TRANSFERASE 10 Units/L (15-37); BLOOD UREA NITROGEN 25 mg/dL (7-18); CALCIUM 8.6 mg/dL (8.5-10.1); CARBON DIOXIDE 23.2 mmol/L (21-32); CHLORIDE 106 mmol/L (98-107); COR CA(FOR HYPOALB) 9.7 mg/dL (8.5-10.1); MAGNESIUM 1.8 mg/dL (1.7-2.9); SODIUM 138 mmol/L (136-145); TOTAL PROTEIN 6.5 g/dL (6.4-8.2); eGFR NON BLACK RACES 26 (>60)
[2022-01-05 08:26] VITALS: BP 127/78
--- NOTE | 2022-01-05 09:23 | DR.PROGNOT ---
Hospital Progress Notes - Progress Note for Day of: Progress Note Date: 01/05/22 - Chief Complaint Chief Complaint: doing better today . no chest pain , no SOB . dressing RT foot is intact .. - Past Medical Family Social History Past Med/Fam/Surg Hx: No changes since H&P Allergies: Allergies Penicillins Allergy (Unknown, Verified 12/15/21 09:52) childhood allergy - Review Of Systems ROS: No change since H&P - Vital Signs Vital Signs: Temperature 98.0 F Pulse Rate [Left Radial] 83 Pulse Rate 80 Respiratory Rate 18 Blood Pressure [Right Arm] 127/78 Blood Pressure [Left Arm] 127/79 Blood Pressure 116/80 O2 Sat by Pulse Oximetry 95 - Physical Exam Oriented: Normal Eyes: Normal Ear: Normal Nose: Normal Throat: Normal Respiratory: Normal Cardiovascular: Normal : Normal GI:Auscultation: Normal GI:Palpation: Normal GI: Tenderness: Normal Skin: Other (intact dressing RT foot ..) Speech Pattern: Clear - Laboratory and Diagnostics Result Diagrams: 01/05/22 05:20 01/05/22 05:20 Labs: Laboratory WBC 5.0 X10^3/uL (3.6-10.0) 01/05/22 05:20 RBC 3.20 X10^6/uL (4.7-6.0) L 01/05/22 05:20 Hgb 9.6 g/dL (13.5-18.0) L 01/05/22 05:20 Hct 28.0 % (42.0-54.0) L 01/05/22 05:20 MCV 87.7 fL (80.0-100.0) 01/05/22 05:20 MCH 30.0 pg (27.0-34.0) 01/05/22 05:20 MCHC 34.2 g/dL (33.0-35.0) 01/05/22 05:20 RDW 14.6 % (11.6-16.5) 01/05/22 05:20 Plt Count 237 X10^3/uL (150.0-450.0) 01/05/22 05:20 MPV 7.8 fL (7.4-11.0) 01/05/22 05:20 Neut % (Auto) 62.3 % (42.0-75.0) 01/05/22 05:20 Lymph % (Auto) 22.5 % (21.0-51.0) 01/05/22 05:20 [place] % (Auto) 10.0 % (0.0-13.0) 01/05/22 05:20 Eos % (Auto) 3.7 % (0.9-2.9) H 01/05/22 05:20 Baso % (Auto) 1.5 % (0.2-1.0) H 01/05/22 05:20 Neut # (Auto) 3.1 x10^3/uL (2.2-4.8) 01/05/22 05:20 Lymph # (Auto) 1.1 X10^3/uL (1.3-2.9) L 01/05/22 05:20 [place] # (Auto) 0.5 x10^3/uL (0.3-0.8) 01/05/22 05:20 Eos # (Auto) 0.2 x10^3/uL (0.0-0.2) 01/05/22 05:20 Baso # (Auto) 0.1 X10^3/uL (0.0-0.1) 01/05/22 05:20 Absolute Nucleated RBC 0.0 /100WBC 01/05/22 05:20 PT 15.9 SECONDS (11.8-14.3) 01/04/22 08:13 INR Target Range - 01/04/22 08:13 INR 1.32 (0.8-1.3) H 01/04/22 08:13 APTT 36.6 SECONDS (22.9-36.5) H 01/04/22 08:13 PTT Comment - 01/04/22 08:13 Sodium 138 mmol/L (136-145) 01/05/22 05:20 Corrected Sodium TNP 01/05/22 05:20 Potassium 4.7 mmol/L (3.5-5.1) 01/05/22 05:20 Chloride 106 mmol/L (98-107) 01/05/22 05:20 Carbon Dioxide 23.2 mmol/L (21-32) 01/05/22 05:20 BUN 25 mg/dL (7-18) H 01/05/22 05:20 Creatinine 2.60 mg/dL (0.70-1.30) H 01/05/22 05:20 Est GFR (MDRD) Af Amer 32 (>60) L 01/05/22 05:20 Est GFR (MDRD) Non-Af 26 (>60) L 01/05/22 05:20 Glucose 96 mg/dL (65-99) 01/05/22 05:20 POC Glucose (mg/dL) 104 mg/dL (65-99) H 01/04/22 22:24 Calcium 8.6 mg/dL (8.5-10.1) 01/05/22 05:20 Corrected Calcium 9.7 mg/dL (8.5-10.1) 01/05/22 05:20 Magnesium 1.8 mg/dL (1.7-2.9) 01/05/22 05:20 Total Bilirubin 0.20 mg/dL (0.2-1.0) 01/05/22 05:20 AST 10 Units/L (15-37) L 01/05/22 05:20 ALT 10 Units/L (12-78) L 01/05/22 05:20 Alkaline Phosphatase 63 Units/L (46-116) 01/05/22 05:20 Creatine Kinase 25 Units/L (39-308) L 01/04/22 22:25 Troponin I High Sens 24.6 ng/L (4.0-60.0) 01/04/22 22:25 B-Natriuretic Peptide 11.7 pg/mL (0-79) 01/04/22 08:13 Total Protein 6.5 g/dL (6.4-8.2) 01/05/22 05:20 Albumin 2.6 g/dL (3.4-5.0) L 01/05/22 05:20 Globulin 3.9 g/dL (2.5-4.5) 01/05/22 05:20 Albumin/Globulin Ratio 0.7 Ratio (1.1-2.1) L 01/05/22 05:20 Amylase 48 Units/L (25-115) 01/04/22 10:20 Lipase 105 Units/L (73-393) 01/04/22 10:20 Specimen Type Clean catch urine 01/04/22 15:10 Urine Color Pale yellow (YELLOW) 01/04/22 15:10 Urine Appearance Clear (CLEAR) 01/04/22 15:10 Urine pH 5.0 (5.0 - 8.0) 01/04/22 15:10 Ur Specific [place] 1.010 (1.000-1.030) 01/04/22 15:10 Urine Protein Negative (NEGATIVE) 01/04/22 15:10 Urine Glucose (UA) Negative (NEGATIVE) 01/04/22 15:10 Urine Ketones Negative (NEGATIVE) 01/04/22 15:10 Urine Blood 1+ (NEGATIVE) 01/04/22 15:10 Urine Nitrite Negative (NEGATIVE) 01/04/22 15:10 Urine Bilirubin Negative (NEGATIVE) 01/04/22 15:10 Urine Urobilinogen Normal (NORMAL) 01/04/22 15:10 Ur Leukocyte Esterase 1+ (NEGATIVE) 01/04/22 15:10 Urine RBC 0-2 /HPF (0-3) 01/04/22 15:10 Urine WBC 0-2 /HPF (0-5) 01/04/22 15:10 Ur Squamous Epith Cells Rare /HPF (NEGATIVE) 01/04/22 15:10 Amorphous Sediment Trace /HPF (NEGATIVE) 01/04/22 15:10 Urine Bacteria Trace /HPF (NEGATIVE) 01/04/22 15:10 Ur Culture Indicated? No/not indicated 01/04/22 15:10 Vancomycin Trough 19.6 ug/mL (15-20) 01/04/22 10:20 SARS-CoV-2 (PCR) Negative (NEGATIVE) 01/04/22 15:45 - Assessment and Plan 2: s/p split thickness graft RT foot .. to keep dressing intact and follow in one week .. - Problem Patient Problems: Patient Problems Chest pain (Acute) R07.9 Right foot infection (Acute) L08.9
[2022-01-05] MEDS: PROTONIX INJ 40 MG VIAL IVP SCH (09:34)
== END 2022-01-05 11:55 | disposition home health service (06) ==
LOC: ER 07:43 → MED/SURG 07:43
PROVIDERS: ADMIT Internal Medicine; ATTEND Internal Medicine
DX: R79.1 Abnormal coagulation profile; R94.4 Abnormal results of kidney function studies; E78.2 Mixed hyperlipidemia; I10 Essential (primary) hypertension; R07.89 Other chest pain; R06.02 Shortness of breath; Z20.822 Contact with and (suspected) exposure to COVID-19; Z94.5 Skin transplant status; N17.8 Other acute kidney failure

== ENCOUNTER 2023-02-14 15:21 | Inpatient (IN) ==
[2023-02-14 17:19] LABS: BASOPHILS # (AUTO) 0.2 X10^3/uL (0.0-0.1); BASOPHILS % (AUTO) 0.9 % (0.2-1.0); EOSINOPHILS # (AUTO) 0.2 x10^3/uL (0.0-0.2); EOSINOPHILS % (AUTO) 0.9 % (0.9-2.9); HEMATOCRIT 34.3 % (42.0-54.0); HEMOGLOBIN 11.2 g/dL (13.5-18.0); LYMPHOCYTES # (AUTO) 2.2 X10^3/uL (1.3-2.9); MEAN CORPUSCULAR HEMOGLOBIN 29.6 pg (27.0-34.0); MEAN CORPUSCULAR HGB CONC 32.6 g/dL (33.0-35.0); MEAN PLATELET VOLUME 8.5 fL (7.4-11.0); MONOCYTES # (AUTO) 1.4 x10^3/uL (0.3-0.8); MONOCYTES % (AUTO) 8.5 % (0.0-13.0); NEUTROPHILS # (AUTO) 12.8 x10^3/uL (2.2-4.8); NEUTROPHILS % (AUTO) 76.7 % (42.0-75.0); PLATELET COUNT 278 X10^3/uL (150.0-450.0); RED BLOOD COUNT 3.77 X10^6/uL (4.7-6.0); RED CELL DISTRIBUTION WIDTH 15.1 % (11.6-16.5); WHITE BLOOD COUNT 16.7 X10^3/uL (3.6-10.0)
[2023-02-14 17:29] LABS: ALBUMIN 3.1 g/dL (3.4-5.0); CALCIUM 8.6 mg/dL (8.5-10.1); CARBON DIOXIDE 23.1 mmol/L (21-32); COR CA(FOR HYPOALB) 9.3 mg/dL (8.5-10.1); CREATININE 3.74 mg/dL (0.70-1.30); POTASSIUM 5.4 mmol/L (3.5-5.1)
[2023-02-14] MEDS ORDERED: VANCOMYCIN IV *PREMIX 1.5 G/300 ML BAG 1.5 G/300 ML PIGGYBACK IV SCH (18:00)
[2023-02-14 18:07] VITALS: BMI 31.9
[2023-02-14] MEDS: D5 1/2 NS 1,000 ML 1,000 ML IV SCH (20:40)
[2023-02-14] MEDS: PERCOCET TAB 5/325 MG PO PRN (21:39)
[2023-02-15] MEDS ORDERED: HIBICLENS WASH ONE (04:54)
[2023-02-15 05:19] LABS: BASOPHILS # (AUTO) 0.1 X10^3/uL (0.0-0.1); BASOPHILS % (AUTO) 0.8 % (0.2-1.0); EOSINOPHILS # (AUTO) 0.3 x10^3/uL (0.0-0.2); EOSINOPHILS % (AUTO) 2.3 % (0.9-2.9); HEMATOCRIT 30.6 % (42.0-54.0); HEMOGLOBIN 10.1 g/dL (13.5-18.0); LYMPHOCYTES # (AUTO) 1.6 X10^3/uL (1.3-2.9); LYMPHOCYTES % (AUTO) 13.1 % (21.0-51.0); MEAN CORPUSCULAR HEMOGLOBIN 29.7 pg (27.0-34.0); MEAN CORPUSCULAR VOLUME 89.9 fL (80.0-100.0); MONOCYTES # (AUTO) 0.8 x10^3/uL (0.3-0.8); MONOCYTES % (AUTO) 6.9 % (0.0-13.0); NEUTROPHILS # (AUTO) 9.4 x10^3/uL (2.2-4.8); NEUTROPHILS % (AUTO) 76.9 % (42.0-75.0); PLATELET COUNT 227 X10^3/uL (150.0-450.0); RED BLOOD COUNT 3.41 X10^6/uL (4.7-6.0); RED CELL DISTRIBUTION WIDTH 15.1 % (11.6-16.5); WHITE BLOOD COUNT 12.2 X10^3/uL (3.6-10.0)
[2023-02-15 05:34] LABS: ALANINE AMINOTRANSFERASE 10 Units/L (12-78); ALBUMIN 2.6 g/dL (3.4-5.0); ALKALINE PHOSPHATASE 69 Units/L (46-116); ASPARTATE AMINO TRANSFERASE 9 Units/L (15-37); BLOOD UREA NITROGEN 56 mg/dL (7-18); CALCIUM 8.3 mg/dL (8.5-10.1); CARBON DIOXIDE 22.1 mmol/L (21-32); CHLORIDE 100 mmol/L (98-107); COR CA(FOR HYPOALB) 9.4 mg/dL (8.5-10.1); CREATININE 3.84 mg/dL (0.70-1.30); GLUCOSE 96 mg/dL (65-99); POTASSIUM 5.2 mmol/L (3.5-5.1); SODIUM 132 mmol/L (136-145); TOTAL PROTEIN 7.1 g/dL (6.4-8.2); eGFR NON BLACK RACES 17 (>60)
--- NOTE | 2023-02-15 06:15 | RAD ---
EXAM:Left foot three viewsHISTORY:CellulitisCOMPARISON:None br.br.br.br lesion. No erosive arthritis is identified. There is some soft tissue swelling in the areas of the 1st and 5th MTP joints. No abnormal periosteal reaction identified. No soft tissue gas identified. There is some deformity of the distal 4th proximal phalanx possibly due to old healed trauma. Tarsal bones are intact and normally aligned. Lisfranc joint is intactIMPRESSION:Focal soft tissue swelling in the area of the 1st and 5th MTP jointsNo definite bony abnormalityNo plain film findings of osteomyelitisTHIS IS AN ELECTRONICALLY VERIFIED FINAL [id number] 6:12 AM - Electronically signed by Lukas Slainas MD
[2023-02-15] MEDS: D5 1/2 NS 1,000 ML 1,000 ML IV SCH (07:30)
[2023-02-15] MEDS ORDERED: LR 1,000 ML IV 1,000 ML IV ONE (10:44)
[2023-02-15] MEDS ORDERED: ANCEF VIAL 1 GRAM ONE (10:44)
[2023-02-15] MEDS ORDERED: NS 100 ML IV 100 ML ONE (10:44)
[2023-02-15] MEDS ORDERED: POLYMYXIN B SULFATE ONE (11:24)
[2023-02-15] MEDS ORDERED: XYLOCAINE 1 % (PLAIN) ONE (11:39)
[2023-02-15] MEDS ORDERED: BETADINE SOLN ONE (11:40)
[2023-02-15] MEDS ORDERED: DIPRIVAN VIAL 20 ML ONE (11:48)
[2023-02-15] MEDS ORDERED: VERSED ONE (11:48)
[2023-02-15] MEDS ORDERED: FENTANYL VIAL INJ 100 mcg ONE (11:57)
[2023-02-15] MEDS: PERCOCET TAB 5/325 MG PO PRN (15:04)
[2023-02-15 15:25] VITALS: O2SAT 97
[2023-02-15 16:53] VITALS: BP 148/77; PULSE 101; RESP 25; TEMP 98.4
[2023-02-16] MEDS ORDERED: PHARMACY COMMENT IV NR (05:30)
== END 2023-02-15 15:50 | disposition home health service (06) | DRG 571 ==
LOC: ICU → OBSVTOIN 16:21
PROVIDERS: ADMIT Surgery; ATTEND Surgery
DX: B96.29 Other Escherichia coli [E. coli] as the cause of diseases classified elsewhere; B95.62 Methicillin resistant Staphylococcus aureus infection as the cause of diseases classified elsewhere; L97.528 Non-pressure chronic ulcer of other part of left foot with other specified severity; L03.116 Cellulitis of left lower limb

== ENCOUNTER 2023-02-28 08:56 | Inpatient (IN) ==
[2023-02-28] MEDS ORDERED: TYLENOL 500 MG TAB EXTRA STRENGTH PO STA (09:19)
--- NOTE | 2023-02-28 09:19 | DR.EXTPAIN ---
HPI Time seen Time Seen by Provider: 02/28/23 09:18 PCP Primary Care Physician: SAI RIVAS Complaint/Symptoms Chief Complaint Doctor Comments: 67-year-old male presents for evaluation. Patient started hurting 2 days ago, bilateral wrist. Pain is increased to all joints, in his back. Spiked a fever this a.m., with shaking chills. Denies any sinus congestion, sore throat, cough. No nausea, vomiting, bowel or bladder issues. Patient with a history of gout, started some colchicine. Has recent been treated for staph infection of his left foot. Currently on 2 antibiotics. Chief Complaint:: pt states that he has been having swelling and pain to his joints ( fingers, wrist , knees , and elbows) since saturday and it was worse yesterday pt took chochicine last night that he takes for gout without relief .. pt is in a wheelchair due to pain ,br Self Treatment fo Chief Complaint: pt had recent staph infection to his left lateral foot, i/d performed and pt is on bactrim and rifampin COVID-19 Coronavirus risk:travel/contact w/high risk person: No Has patient experienced Coronavirus symptoms: Yes Coronavirus symptoms experienced: Fever Nurses notes reviewed Nurses Notes Review: Yes Source History Provided: Patient and Family Member Mode of arrival Mode of Arrival: Wheelchair Timing Onset of Chief Complaint: 02/26/23 PMH PMH Past Medical History: Yes Past Medical History: Dyslipidemia and Hypertension Past Surgical History: Yes Surgical History: Appendectomy and Other Family History History of Family Medical Conditions: Yes Family Medical History: Hypertension Social History Does patient currently use any type of tobacco product: No Have you used tobacco products in the last 12 months: No Does any household member use tobacco: No Alcohol Use: None Do you use any recreational Drugs:: No Lives With: Family Lives Where: Home Travel Risk Coronavirus risk:travel/contact w/high risk person: No Has patient experienced Coronavirus symptoms: Yes Coronavirus symptoms experienced: Fever Infectious screening In the last 2 months have you had wt loss of >10#?: NO Have you had fever, night sweats or hemotysis?: No Have you traveled outside the country in the last 6 months?: No Isolation: Standard ROS Review of Systems Constitutional: Chills, Fever, Malaise and Weakness Eyes: No Symptoms Reported ENTM: No Symptoms Reported Respiratoy: No Symptoms Reported Cardiovascular: No Symptoms Reported Gastrointestinal/Abdominal: No Symptoms Reported Genitourinary: No Symptoms Reported Neurological: No Symptoms Reported Musculoskeletal: Joint Pain Integumentary: No Symptoms Reported All Other Systems: Reviewed and Negative PE Vital Signs Vitals: Vital Signs Temperature 101.4 F Pulse Rate 82 Pulse Rate 84 Pulse Rate 83 Pulse Rate 83 Pulse Rate 85 Pulse Rate 85 Pulse Rate 84 Pulse Rate 85 Pulse Rate 84 Pulse Rate 86 Pulse Rate 86 Pulse Rate 89 Pulse Rate 86 Pulse Rate 86 Pulse Rate 86 Pulse Rate 87 Pulse Rate 87 Pulse Rate 88 Pulse Rate 89 Pulse Rate 122 Respiratory Rate 20 Respiratory Rate 20 Respiratory Rate 20 Respiratory Rate 18 Blood Pressure 122/63 Blood Pressure 128/61 Blood Pressure 112/57 Blood Pressure 92/52 Blood Pressure 105/58 Blood Pressure 106/59 Blood Pressure 102/59 Blood Pressure 100/59 Blood Pressure 102/56 Blood Pressure 103/58 Blood Pressure 81/57 Blood Pressure 75/52 Blood Pressure 85/53 Blood Pressure 86/51 Blood Pressure 87/50 Blood Pressure 84/54 Blood Pressure 87/53 Blood Pressure 84/52 Blood Pressure 86/53 Blood Pressure 122/78 O2 Sat by Pulse Oximetry 98 O2 Sat by Pulse Oximetry 98 O2 Sat by Pulse Oximetry 98 O2 Sat by Pulse Oximetry 97 O2 Sat by Pulse Oximetry 98 O2 Sat by Pulse Oximetry 98 O2 Sat by Pulse Oximetry 98 O2 Sat by Pulse Oximetry 97 O2 Sat by Pulse Oximetry 98 O2 Sat by Pulse Oximetry 98 O2 Sat by Pulse Oximetry 98 O2 Sat by Pulse Oximetry 98 O2 Sat by Pulse Oximetry 98 O2 Sat by Pulse Oximetry 98 O2 Sat by Pulse Oximetry 98 O2 Sat by Pulse Oximetry 98 O2 Sat by Pulse Oximetry 97 O2 Sat by Pulse Oximetry 97 O2 Sat by Pulse Oximetry 97 O2 Sat by Pulse Oximetry 93 General General Appearance: Alert and In No Apparent Distress Eyes Eye exam: PERRL and EOMI ENT ENT Exam: Normal Oropharynx, Mucous Membranes Moist and TM's Normal Bilaterally Neck Neck Exam: Normal Inspection Respiratory Respiratory Exam: Normal Lung Sounds Bilat; negative Accessory Muscle Use or Respiratory Distress Cardiovascular Cardiovascular Exam: Regular Rate, Normal Rhythm and Normal Heart Sounds Abdominal Exam Abdominal Exam: Normal Bowel Sounds and Soft; negative Tenderness Extremities Extremities Exam: Tenderness (Bilateral wrist joints, chronic arthritis changes, no erythema); negative Edema Back Back Exam: Tenderness (Paraspinal muscles) Neurological Neurological Exam: Alert, Oriented X3 and CN II-XII Intact; negative Motor Sensory Deficit Skin Skin Exam: Warm and Dry COURSE Treatment Treatment: 59-year-old male with a diffuse joint pain over the past 2 days, now spiking fever this AM. Work-up initiated. Patient given IV fluids, oral Tylenol, IV Toradol to start. 1109 -patient feels about the same. Temperature is now down. Given IV analgesia, dilaudid, 1 mg. BP dropped after Dilaudid. Work-up unremarkable for obvious acute infection. Swabs are negative for COVID/flu/RSV. Labs show low sodium of 129. He has chronic renal insuffic iency, creatinine currently 2.97, right has been running that lately lactic acid okay 1.4, chest x-ray unremarkable. Dr. Lopez examined his foot, does not think he has any worsening infection there. Discussed with Dr. Jennings, his physician, will admit for his hyponatremia, continue IV fluids, will continue his current antibiotics. ROR Labs Reviewed Laboratory Results Reviewed?: Yes 02/28/23 09:47 02/28/23 09:47 Laboratory: WBC 16.2 X10^3/uL (3.6-10.0) H 02/28/23 09:47 RBC 3.44 X10^6/uL (4.7-6.0) L 02/28/23 09:47 Hgb 10.0 g/dL (13.5-18.0) L 02/28/23 09:47 Hct 31.1 % (42.0-54.0) L 02/28/23 09:47 MCV 90.4 fL (80.0-100.0) 02/28/23 09:47 MCH 29.1 pg (27.0-34.0) 02/28/23 09:47 MCHC 32.2 g/dL (33.0-35.0) L 02/28/23 09:47 RDW 15.2 % (11.6-16.5) 02/28/23 09:47 Plt Count 434 X10^3/uL (150.0-450.0) 02/28/23 09:47 MPV 7.7 fL (7.4-11.0) 02/28/23 09:47 Neut % (Auto) 86.2 % (42.0-75.0) H 02/28/23 09:47 Lymph % (Auto) 7.6 % (21.0-51.0) L 02/28/23 09:47 [place] % (Auto) 5.5 % (0.0-13.0) 02/28/23 09:47 Eos % (Auto) 0.1 % (0.9-2.9) L 02/28/23 09:47 Baso % (Auto) 0.6 % (0.2-1.0) 02/28/23 09:47 Neut # (Auto) 14.0 x10^3/uL (2.2-4.8) H 02/28/23 09:47 Lymph # (Auto) 1.2 X10^3/uL (1.3-2.9) L 02/28/23 09:47 [place] # (Auto) 0.9 x10^3/uL (0.3-0.8) H 02/28/23 09:47 Eos # (Auto) 0.0 x10^3/uL (0.0-0.2) 02/28/23 09:47 Baso # (Auto) 0.1 X10^3/uL (0.0-0.1) 02/28/23 09:47 Absolute Nucleated RBC 0.0 /100WBC 02/28/23 09:47 Sodium 129 mmol/L (136-145) L 02/28/23 09:47 Corrected Sodium 130 mmol/L (136-145) L 02/28/23 09:47 Potassium 5.1 mmol/L (3.5-5.1) 02/28/23 09:47 Chloride 94 mmol/L (98-107) L 02/28/23 09:47 Carbon Dioxide 25.1 mmol/L (21-32) 02/28/23 09:47 BUN 23 mg/dL (7-18) H 02/28/23 09:47 Creatinine 2.97 mg/dL (0.70-1.30) H 02/28/23 09:47 Est GFR (MDRD) Af Amer 27 (>60) L 02/28/23 09:47 Est GFR (MDRD) Non-Af 22 (>60) L 02/28/23 09:47 Glucose 160 mg/dL (65-99) H 02/28/23 09:47 Lactic Acid 1.4 mmol/L (0.4-2.0) 02/28/23 09:47 Uric Acid 9.9 mg/dL (3.5-7.2) H 02/28/23 09:47 Calcium 8.6 mg/dL (8.5-10.1) 02/28/23 09:47 Corrected Calcium 9.9 mg/dL (8.5-10.1) 02/28/23 09:47 Total Bilirubin 0.40 mg/dL (0.2-1.0) 02/28/23 09:47 AST 10 Units/L (15-37) L 02/28/23 09:47 ALT 10 Units/L (12-78) L 02/28/23 09:47 Alkaline Phosphatase 79 Units/L (46-116) 02/28/23 09:47 Total Protein 7.6 g/dL (6.4-8.2) 02/28/23 09:47 Albumin 2.4 g/dL (3.4-5.0) L 02/28/23 09:47 Globulin 5.2 g/dL (2.5-4.5) H 02/28/23 09:47 Albumin/Globulin Ratio 0.5 Ratio (1.1-2.1) L 02/28/23 09:47 Lipase 33 Units/L (16-77) 02/28/23 09:47 Specimen Type Random urine 02/28/23 11:24 Urine Color Dark yellow (YELLOW) 02/28/23 11:24 Urine Appearance Clear (CLEAR) 02/28/23 11:24 Urine pH 6.0 (5.0 - 8.0) 02/28/23 11:24 Ur Specific [place] 1.015 (1.000-1.030) 02/28/23 11:24 Urine Protein 2+ (NEGATIVE) 02/28/23 11:24 Urine Glucose (UA) Negative (NEGATIVE) 02/28/23 11:24 Urine Ketones Negative (NEGATIVE) 02/28/23 11:24 Urine Blood 1+ (NEGATIVE) 02/28/23 11:24 Urine Nitrite Negative (NEGATIVE) 02/28/23 11:24 Urine Bilirubin Negative (NEGATIVE) 02/28/23 11:24 Urine Urobilinogen Normal (NORMAL) 02/28/23 11:24 Ur Leukocyte Esterase 1+ (NEGATIVE) 02/28/23 11:24 Urine RBC 0-2 /HPF (0-3) 02/28/23 11:24 Urine WBC 5-10 /HPF (0-5) A 02/28/23 11:24 Ur Squamous Epith Cells Rare /HPF (NEGATIVE) 02/28/23 11:24 Amorphous Sediment Trace /HPF (NEGATIVE) 02/28/23 11:24 Urine Bacteria Trace /HPF (NEGATIVE) 02/28/23 11:24 Hyaline Casts Rare /LPF (NEGATIVE) 02/28/23 11:24 Ur Culture Indicated? No/not indicated 02/28/23 11:24 SARS-CoV-2 (PCR) Negative (NEGATIVE) 02/28/23 09:28 Influenza Type A (PCR) Negative (NEGATIVE) 02/28/23 09:28 Influenza Type B (PCR) Negative (NEGATIVE) 02/28/23 09:28 RSV (PCR) Negative (NEGATIVE) 02/28/23 09:28 XRAY XRAY Interpreted by: Self X-ray Results: Chest x-ray reports abrasion, no obvious infiltrate Opioid Opioid Risk Tool Age (Hubert box if 16-45): No History of Preadolescent Sexual Abuse: No Total: 0 Total Score Risk Category: Low Risk Copyright: Shahid MEJIA predicting aberrant behaviors Discharge Plan Diagnosis Discharge Problem: Acute hyponatremia, Acute febrile illness Discharge Plan Patient Disposition: ADMITTED INPATIENT Condition: Stable
[2023-02-28] MEDS ORDERED: NS 1,000 ML IV 1,000 ML IV ONE (09:26)
[2023-02-28] MEDS ORDERED: TORADOL 30 MG VIAL IVP ONE (09:26)
[2023-02-28] MEDS ORDERED: TYLENOL 500 MG TAB EXTRA STRENGTH PO ONE (09:27)
[2023-02-28] MEDS ORDERED: TORADOL 30 MG VIAL ONE (09:35)
[2023-02-28] MEDS ORDERED: NS 1,000 ML IV 1,000 ML ONE ×2 (09:35→11:49)
[2023-02-28 10:00] LABS: BASOPHILS # (AUTO) 0.1 X10^3/uL (0.0-0.1); BASOPHILS % (AUTO) 0.6 % (0.2-1.0); EOSINOPHILS % (AUTO) 0.1 % (0.9-2.9); HEMATOCRIT 31.1 % (42.0-54.0); LYMPHOCYTES # (AUTO) 1.2 X10^3/uL (1.3-2.9); LYMPHOCYTES % (AUTO) 7.6 % (21.0-51.0); MEAN CORPUSCULAR HEMOGLOBIN 29.1 pg (27.0-34.0); MEAN CORPUSCULAR HGB CONC 32.2 g/dL (33.0-35.0); MEAN CORPUSCULAR VOLUME 90.4 fL (80.0-100.0); MEAN PLATELET VOLUME 7.7 fL (7.4-11.0); MONOCYTES # (AUTO) 0.9 x10^3/uL (0.3-0.8); MONOCYTES % (AUTO) 5.5 % (0.0-13.0); NEUTROPHILS % (AUTO) 86.2 % (42.0-75.0); PLATELET COUNT 434 X10^3/uL (150.0-450.0); RED BLOOD COUNT 3.44 X10^6/uL (4.7-6.0); RED CELL DISTRIBUTION WIDTH 15.2 % (11.6-16.5); WHITE BLOOD COUNT 16.2 X10^3/uL (3.6-10.0)
[2023-02-28 10:13] LABS: ALBUMIN 2.4 g/dL (3.4-5.0); CALCIUM 8.6 mg/dL (8.5-10.1); CARBON DIOXIDE 25.1 mmol/L (21-32); COR CA(FOR HYPOALB) 9.9 mg/dL (8.5-10.1); CREATININE 2.97 mg/dL (0.70-1.30); POTASSIUM 5.1 mmol/L (3.5-5.1); TOTAL PROTEIN 7.6 g/dL (6.4-8.2)
[2023-02-28] MEDS ORDERED: DILAUDID INJ IVP ONE (11:10)
[2023-02-28] MEDS ORDERED: DILAUDID INJ ONE (11:20)
[2023-02-28] MEDS ORDERED: NS 1,000 ML IV 500 ML IV ONE (11:53)
[2023-02-28 11:56] LABS: BILIRUBIN,URINE NEGATIVE (NEGATIVE); BLOOD/HEMOGLOBIN,URINE 1+ (NEGATIVE); GLUCOSE, URINE NEGATIVE (NEGATIVE); KETONES,URINE NEGATIVE (NEGATIVE); LEUKOCYTE ESTERASE ,URINE 1+ (NEGATIVE); NITRITES,URINE NEGATIVE (NEGATIVE); PROTEIN,URINE 2+ (NEGATIVE); UROBILINOGEN,URINE NORMAL (NORMAL)
[2023-02-28 12:10] LABS: APPEARANCE,URINE CLEAR (CLEAR); COLOR,URINE DARK YELLOW (YELLOW)
[2023-02-28 12:11] LABS: BACTERIA,URINE TRACE /HPF (NEGATIVE); HYALINE CASTS, URINE RARE /LPF (NEGATIVE); RBC,URINE 0-2 /HPF (0-3); SQUAMOUS EPITHELIAL CELL,UR RARE /HPF (NEGATIVE)
[2023-02-28 14:25] VITALS: BMI 30.6
[2023-02-28] MEDS: NS 1,000 ML IV 1,000 ML IV SCH (14:37)
--- NOTE | 2023-02-28 15:28 | RAD ---
EXAM:CHEST, 1 VIEWHISTORY:FEVER; HTN APPY COMPARISON:January 04, 2022TECHNIQUE:Portable chest radiographFINDINGS:Heart size and mediastinal contours are normal. Lungs are hypoinflated but otherwise clear as are the pleural spaces. No free air or pneumothorax. No acute bony abnormality.IMPRESSION:The lungs hypoinflated but otherwise clear.THIS IS AN ELECTRONICALLY VERIFIED FINAL [id number]/2023 3:08 PM - Electronically signed by Mike Quinones MD
[2023-02-28] MEDS: ULTRAM PO PRN (15:45)
[2023-02-28] MEDS: INVanz INJ 1 GRAM VIAL 1 G in NS 100 ML IV 100 ML IV SCH (15:50)
[2023-02-28] MEDS: TYLENOL 325 MG TAB PO PRN ×2 (17:06→23:07)
[2023-02-28] MEDS: RIFADIN PO SCH (20:39)
[2023-02-28] MEDS: ZOCOR TAB 20 MG PO SCH (20:39)
[2023-02-28] MEDS ORDERED: BACTRIM DS TAB PO SCH (21:00)
[2023-02-28] MEDS: KLONOPIN TAB 1 MG PO PRN (21:06)
[2023-03-01] MEDS: ULTRAM PO PRN (01:01)
[2023-03-01] MEDS: NS 1,000 ML IV 1,000 ML IV SCH ×6 (02:50→21:56)
[2023-03-01 06:05] LABS: BASOPHILS # (AUTO) 0.1 X10^3/uL (0.0-0.1); EOSINOPHILS % (AUTO) 0.2 % (0.9-2.9); HEMATOCRIT 27.5 % (42.0-54.0); LYMPHOCYTES # (AUTO) 1.3 X10^3/uL (1.3-2.9); LYMPHOCYTES % (AUTO) 9.3 % (21.0-51.0); MEAN CORPUSCULAR HEMOGLOBIN 29.4 pg (27.0-34.0); MEAN CORPUSCULAR HGB CONC 32.6 g/dL (33.0-35.0); MEAN CORPUSCULAR VOLUME 90.3 fL (80.0-100.0); MEAN PLATELET VOLUME 8.2 fL (7.4-11.0); MONOCYTES # (AUTO) 0.9 x10^3/uL (0.3-0.8); MONOCYTES % (AUTO) 6.7 % (0.0-13.0); NEUTROPHILS # (AUTO) 11.4 x10^3/uL (2.2-4.8); NEUTROPHILS % (AUTO) 82.8 % (42.0-75.0); PLATELET COUNT 359 X10^3/uL (150.0-450.0); RED BLOOD COUNT 3.05 X10^6/uL (4.7-6.0); WHITE BLOOD COUNT 13.8 X10^3/uL (3.6-10.0)
[2023-03-01] MEDS: TYLENOL 325 MG TAB PO PRN (06:15)
[2023-03-01 06:28] LABS: ALANINE AMINOTRANSFERASE 7 Units/L (12-78); ALKALINE PHOSPHATASE 64 Units/L (46-116); ASPARTATE AMINO TRANSFERASE 15 Units/L (15-37); BLOOD UREA NITROGEN 27 mg/dL (7-18); CALCIUM 7.6 mg/dL (8.5-10.1); CARBON DIOXIDE 22.4 mmol/L (21-32); CHLORIDE 97 mmol/L (98-107); COR CA(FOR HYPOALB) 9.2 mg/dL (8.5-10.1); CREATININE 2.61 mg/dL (0.70-1.30); GLUCOSE 102 mg/dL (65-99); POTASSIUM 4.9 mmol/L (3.5-5.1); SODIUM 130 mmol/L (136-145); TOTAL PROTEIN 6.7 g/dL (6.4-8.2); eGFR NON BLACK RACES 26 (>60)
[2023-03-01] MEDS: RIFADIN PO SCH ×2 (08:52→20:42)
[2023-03-01] MEDS: INVanz INJ 1 GRAM VIAL 1 G in NS 100 ML IV 100 ML IV SCH (08:52)
[2023-03-01] MEDS: COLCRYS TAB 0.6 MG PO SCH ×2 (11:03→20:42)
[2023-03-01] MEDS: TORADOL 15 MG VIAL IVP SCH ×2 (11:03→21:35)
[2023-03-01] MEDS ORDERED: NS 1,000 ML IV 1,000 ML IV ONE (12:08)
--- NOTE | 2023-03-01 18:51 | DR.H&P ---
H&P - History & Physical for Day of: H&P Date: 02/28/23 - Chief Complaint Chief Complaint: BODY ACHES, LEFT FOOT WOUND - History of Present Illness History of Present Illness: IS A 67 YEAR OLD PATIENT OF OURS. HE PRESENTED TO THE ER WITH COMPLAINTS OF PAIN TO WRIST, HANDS, ELBOWS, KNEES, FEET, AND HIS BACK. HE REPORTS THAT HIS SYMPTOMS STARTED TWO DAYS AGO. HE DENIES SINUS CONGESTION, SORE THROAT, COUGH, NAUSEA, VOMITING, BOWEL, OR BLADDER ISSUES. HE ADMITS TO BEING HOSPITALIZED AND TREATED FOR MRSA AND E.COLI OF WOUND TO THE LEFT FOOT. WOUND WAS DEBRIDED EARLIER IN THE MONTH. HE HAS BEEN TAKING BACTRIM AND RIFAMPIN AT HOME. HE STARTED TAKING COLCHICINE FOR GOUT TWO DAYS AGO. HE DENIES IMPROVEMENT IN SYMPTOMS SINCE STARTING COLCHICINE. UPON EXAMINATION, PATIENT WAS NOTED TO HAVE SWELLING OF THE JOINTS OF THE HANDS, ELBOWS, AND FEET. THERE WAS A 5X4 CM WOUND TO THE LEFT LATERAL FOOT. ON ARRIVAL TO THE HOSPITAL, HIS VITALS WERE: 101.4-122-18-93%-122/78. LABS WERE OBTAINED. WBC 16.2, RBC 3.44, HGB 10.0, HCT 31.1, PLT COUNT 434, SODIUM 129, POTASSIUM 5.1, CHLORIDE 94, CARBON DIOXIDE 25.1, BUN 23, CREATININE 2.97, GLUCOSE 160, LACTIC ACID 1.4, URIC ACID 9.9, CALCIUM 8.6, TOTAL BILI 0.40, AST 10, ALT 10, ALK PHOS 79, TOTAL PROTEIN 7.6, ALBUMIN 2.4. A URINALYSIS WAS OBTAINED AND REVEALED: WBC 5-10, RBC 0-2, LEUKOCYTES 1+, BACTERIA TRACE. COVID, INFLUENZA, AND RSV NEGATIVE. BLOOD CULTURES WERE SET UP. A CHEST XRAY WAS OBTAINED AND REVEALED: The lungs hypoinflated but otherwise clear. IN THE ER, HE WAS STARTED ON OXYGEN VIA NASAL CANNULA AT 2 LPM. IN THE ER, HE WAS GIVEN TYLENOL 1G PO X 1 DOSE, NORMAL SALINE 1 LITER BOLUS X 2, TORADOL 30MG IV X 1, DILAUDID 1MG IV X 1. HE WAS ADMITTED TO THE HOSPTIAL INPATIENT STATUS FOR FURTHER EVALUATION AND TREATMENT OF ACUTE ON CHRONIC RENAL FAILURE, HYPONATREMIA, GOUT FLARE, MRSA AND E.COLI OF LEFT FOOT, AND ANEMIA. HE WAS STARTED ON NORMAL SALINE AT 150 ML/HR, INVANZ 1G IV DAILY, TORADOL 15MG IV Q12H, COLCRYS 0.6MG BID, RIFAMPIN 300MG BID, AND TYLENOL 650MG PO Q4H PRN. HIS HOME MEDICATIONS OF KLONOPIN, RIFAMPIN, ZOCOR, AND TRAMADOL WERE RESUMED. WE WILL CONSULT , GENERAL SURGEON, FOR EVALUATION OF WOUND. OTHERWISE, WE PLAN TO FOLLOW UP WITH AM LABS AND CONTINUE TO MONITOR. - Past Medical History Past Medical History: Arthritis, Dyslipidemia, GERD, Gout, Hypertension - Past Surgical History Surgical History: Appendectomy - Family History Family Medical History: Hypertension - Social History Does patient currently use any type of tobacco product: No Have you used tobacco products in the last 12 months: No Type of Tobacco Use: None Does any household member use tobacco: No Alcohol Use: None Drug Use: None - Review of Systems Constitutional: Fever, Chills, Weakness Eyes: No Symptoms Reported ENT: No Symptoms Reported Respiratory: No Symptoms Reported Cardiovascular: No Symptoms Reported Gastrointestinal: No Symptoms Reported Genitourinary: No Symptoms Reported Musculoskeletal: Back Pain, Hand Pain, Leg Pain, Foot Pain Skin: Wound (LEFT FOOT WOUND ) Neurological: Weakness - Physical Exam Vital Signs: Vital Signs Temperature 98.8 F Temperature 99.2 F Temperature 99.5 F Pulse Rate [Right Brachial] 101 Pulse Rate [Right Brachial] 98 Respiratory Rate 18 Respiratory Rate 18 Respiratory Rate 20 Respiratory Rate 20 Blood Pressure [Left Arm] 110/60 Blood Pressure [Left Arm] 115/68 O2 Sat by Pulse Oximetry 95 O2 Sat by Pulse Oximetry 97 Oriented: Normal Eyes: Normal Ear: Normal Nose: Normal Throat: Normal Respiratory: Diminished Throughout Cardiovascular: Tachycardia : Normal Auscultation: Bowel Sounds: Normal Palpation: Normal Tenderness: Normal Skin: Normal Musculoskeletal: Right, Left, Elbow, Wrist, Hand, Ankle, Foot, Back:Lumbar, Swelling, Tender Psychiatric: Normal Mood Description: Calm Affect: Normal Speech Pattern: Clear - Assessment/Plan (1) Acute on chronic renal failure Qualifiers: Acute renal failure type: unspecified Chronic kidney disease stage: unspecified stage Qualified Code(s): N17.9 - Acute kidney failure, unspecified; N18.9 - Chronic kidney disease, unspecified Status: Acute Plan: ADMIT, NORMAL SALINE AT 150 ML/HR, INVANZ 1G IV DAILY, TORADOL 15MG IV Q12H, COLCRYS 0.6MG BID, RIFAMPIN 300MG BID, AND TYLENOL 650MG PO Q4H PRN. RESUME HOME MEDS. CONSULT GENERAL SURGERY FOR EVALUATION OF WOUNDS (2) Acute hyponatremia Status: Acute (3) Gout Qualifiers: Gout site: multiple sites Gout etiology: unspecified cause Chronicity: unspecified Qualified Code(s): M10.9 - Gout, unspecified Status: Acute (4) MRSA cellulitis of left foot Status: Acute (5) E coli infection Status: Acute (6) Anemia Qualifiers: Anemia type: unspecified type Qualified Code(s): D64.9 - Anemia, unspecified Status: Chronic (7) HTN (hypertension) Qualifiers: Hypertension type: unspecified Qualified Code(s): I10 - Essential (primary) hypertension Status: Chronic (8) Hyperlipidemia Qualifiers: Hyperlipidemia type: mixed hyperlipidemia Qualified Code(s): E78.2 - Mixed hyperlipidemia Status: Chronic - Allergies Allergies/Adverse Reactions: Allergies Allergy/AdvReac Type Severity Reaction Status Date / Time Penicillins Allergy Unknown childhood Verified 02/28/23 09:03 allergy - Medications Home Medications: Home Medications Medication Instructions Recorded Confirmed clonazepam 2 mg tablet 1 mg PO QDAY PRN 01/04/22 02/28/23 colchicine (gout) 0.6 mg tablet 0.6 mg PO BID PRN 01/04/22 02/28/23 hydrochlorothiazide 12.5 mg capsule 12.5 mg PO QDAY 01/04/22 02/28/23 simvastatin 20 mg tablet 20 mg PO HS 01/04/22 02/28/23 tramadol 50 mg tablet 50 mg PO TID PRN 02/14/23 02/28/23 aspirin 81 mg tablet,delayed 81 mg PO DAILY 02/28/23 02/28/23 release hydrocodone 5 mg-acetaminophen 325 1 tab PO QDAY PRN 02/28/23 02/28/23 mg tablet rifampin 300 mg capsule 300 mg PO BID 02/28/23 02/28/23 sulfamethoxazole 800 1 tab PO BID 02/28/23 02/28/23 mg-trimethoprim 160 mg tablet Previous Rx's Medication Instructions Recorded pantoprazole 40 mg tablet,delayed 40 mg PO BID #60 tabs 01/05/22 release
[2023-03-01] MEDS: ZOCOR TAB 20 MG PO SCH (20:42)
[2023-03-01] MEDS: KLONOPIN TAB 1 MG PO PRN (20:42)
[2023-03-02] MEDS: NS 1,000 ML IV 1,000 ML IV SCH ×6 (03:50→22:48)
[2023-03-02 06:51] LABS: BASOPHILS # (AUTO) 0.1 X10^3/uL (0.0-0.1); BASOPHILS % (AUTO) 0.9 % (0.2-1.0); EOSINOPHILS # (AUTO) 0.1 x10^3/uL (0.0-0.2); EOSINOPHILS % (AUTO) 0.5 % (0.9-2.9); HEMATOCRIT 27.7 % (42.0-54.0); HEMOGLOBIN 8.9 g/dL (13.5-18.0); LYMPHOCYTES # (AUTO) 1.1 X10^3/uL (1.3-2.9); LYMPHOCYTES % (AUTO) 9.3 % (21.0-51.0); MEAN CORPUSCULAR HGB CONC 32.2 g/dL (33.0-35.0); MEAN CORPUSCULAR VOLUME 90.1 fL (80.0-100.0); MEAN PLATELET VOLUME 8.5 fL (7.4-11.0); MONOCYTES # (AUTO) 0.9 x10^3/uL (0.3-0.8); MONOCYTES % (AUTO) 7.5 % (0.0-13.0); NEUTROPHILS # (AUTO) 9.4 x10^3/uL (2.2-4.8); NEUTROPHILS % (AUTO) 81.8 % (42.0-75.0); PLATELET COUNT 359 X10^3/uL (150.0-450.0); RED BLOOD COUNT 3.07 X10^6/uL (4.7-6.0); RED CELL DISTRIBUTION WIDTH 15.2 % (11.6-16.5); WHITE BLOOD COUNT 11.5 X10^3/uL (3.6-10.0)
[2023-03-02 07:15] LABS: ALANINE AMINOTRANSFERASE 8 Units/L (12-78); ALBUMIN 1.8 g/dL (3.4-5.0); ALKALINE PHOSPHATASE 62 Units/L (46-116); ASPARTATE AMINO TRANSFERASE 16 Units/L (15-37); BLOOD UREA NITROGEN 26 mg/dL (7-18); CALCIUM 7.8 mg/dL (8.5-10.1); CARBON DIOXIDE 21.5 mmol/L (21-32); CHLORIDE 99 mmol/L (98-107); COR CA(FOR HYPOALB) 9.6 mg/dL (8.5-10.1); CREATININE 2.08 mg/dL (0.70-1.30); GLUCOSE 96 mg/dL (65-99); POTASSIUM 4.4 mmol/L (3.5-5.1); SODIUM 131 mmol/L (136-145); TOTAL PROTEIN 6.6 g/dL (6.4-8.2); eGFR NON BLACK RACES 34 (>60)
[2023-03-02] MEDS: COLCRYS TAB 0.6 MG PO SCH ×2 (09:31→20:39)
[2023-03-02] MEDS: RIFADIN PO SCH ×2 (09:31→20:39)
[2023-03-02] MEDS: INVanz INJ 1 GRAM VIAL 1 G in NS 100 ML IV 100 ML IV SCH (09:32)
[2023-03-02] MEDS: TORADOL 15 MG VIAL IVP SCH ×3 (09:34→21:12)
--- NOTE | 2023-03-02 13:09 | PCM.PROG ---
Progress Note Progress Note for Day of Date of Exam: 03/02/23 Subjective Subjective: Patient seen at bedside, no acute events overnight. He reports constant joint pain, worse in both hands. He has been getting Toradol and tramadol prn. He is currently being treated for gout flare up and chronic left foot wound. Dr Farris did I&D on the left foot. Labs/imaging reviewed - Hgb 8.9 BUN/Cr 26/2.08 -Blood Cx x 1: CONS -Wound Cx: MRSA + E.coli Plan: Patient reports joint pain not being controlled with current regimen. Will change toradol to q8hrs, continue tramadol. Follow surgery recommendations and wound care. Continue Invanz and Rifampin. Continue hydration with NS. Follow final Cx. Monitor AM labs. Past Medical Family Social History Past Med/Fam/Surg Hx: No changes since H&P Allergies: Allergies Penicillins Allergy (Unknown, Verified 02/28/23 09:03) childhood allergy Vital Signs and I&O's Vital Signs: Vital Signs Respiratory Rate 18 Intake and Output: Intake & Output 02/27/23 02/28/23 03/01/23 03/02/23 23:59 23:59 23:59 23:59 Intake Total 2402 / 2402 5899 / 5899 1637 / 1637 Output Total 200 / 200 670 / 670 310 / 310 Balance 2202 / 2202 5229 / 5229 1327 / 1327 Physical Exam Oriented: Normal Eyes: Normal Ear: Normal Nose: Normal Throat: Normal Cardiovascular: Normal Auscultation: Bowel Sounds: Normal Tenderness: Normal Skin: Normal Musculoskeletal: Right, Left, Elbow, Wrist, Hand, Ankle, Foot, Back:Lumbar, Swelling and Tender Psychiatric: Normal Mood Description: Calm Affect: Normal Speech Pattern: Clear and Appropriate Laboratory and Diagnostics 03/02/23 05:09 03/02/23 05:09 Labs: 02/28/23 09:47 Blood Blood Culture - Preliminary 02/28/23 09:42 Blood Blood Culture Gram Stain - Final 02/28/23 09:42 Blood Blood Culture - Preliminary Laboratory WBC 11.5 X10^3/uL (3.6-10.0) H 03/02/23 05:09 RBC 3.07 X10^6/uL (4.7-6.0) L 03/02/23 05:09 Hgb 8.9 g/dL (13.5-18.0) L 03/02/23 05:09 Hct 27.7 % (42.0-54.0) L 03/02/23 05:09 MCV 90.1 fL (80.0-100.0) 03/02/23 05:09 MCH 29.0 pg (27.0-34.0) 03/02/23 05:09 MCHC 32.2 g/dL (33.0-35.0) L 03/02/23 05:09 RDW 15.2 % (11.6-16.5) 03/02/23 05:09 Plt Count 359 X10^3/uL (150.0-450.0) 03/02/23 05:09 MPV 8.5 fL (7.4-11.0) 03/02/23 05:09 Neut % (Auto) 81.8 % (42.0-75.0) H 03/02/23 05:09 Lymph % (Auto) 9.3 % (21.0-51.0) L 03/02/23 05:09 [place] % (Auto) 7.5 % (0.0-13.0) 03/02/23 05:09 Eos % (Auto) 0.5 % (0.9-2.9) L 03/02/23 05:09 Baso % (Auto) 0.9 % (0.2-1.0) 03/02/23 05:09 Neut # (Auto) 9.4 x10^3/uL (2.2-4.8) H 03/02/23 05:09 Lymph # (Auto) 1.1 X10^3/uL (1.3-2.9) L 03/02/23 05:09 [place] # (Auto) 0.9 x10^3/uL (0.3-0.8) H 03/02/23 05:09 Eos # (Auto) 0.1 x10^3/uL (0.0-0.2) 03/02/23 05:09 Baso # (Auto) 0.1 X10^3/uL (0.0-0.1) 03/02/23 05:09 Absolute Nucleated RBC 0.0 /100WBC 03/02/23 05:09 Sodium 131 mmol/L (136-145) L 03/02/23 05:09 Corrected Sodium TNP 03/02/23 05:09 Potassium 4.4 mmol/L (3.5-5.1) 03/02/23 05:09 Chloride 99 mmol/L (98-107) 03/02/23 05:09 Carbon Dioxide 21.5 mmol/L (21-32) 03/02/23 05:09 BUN 26 mg/dL (7-18) H 03/02/23 05:09 Creatinine 2.08 mg/dL (0.70-1.30) H 03/02/23 05:09 Est GFR (MDRD) Af Amer 41 (>60) L 03/02/23 05:09 Est GFR (MDRD) Non-Af 34 (>60) L 03/02/23 05:09 Glucose 96 mg/dL (65-99) 03/02/23 05:09 Lactic Acid 1.4 mmol/L (0.4-2.0) 02/28/23 09:47 Uric Acid 9.9 mg/dL (3.5-7.2) H 02/28/23 09:47 Calcium 7.8 mg/dL (8.5-10.1) L 03/02/23 05:09 Corrected Calcium 9.6 mg/dL (8.5-10.1) 03/02/23 05:09 Total Bilirubin 0.40 mg/dL (0.2-1.0) 03/02/23 05:09 AST 16 Units/L (15-37) 03/02/23 05:09 ALT 8 Units/L (12-78) L 03/02/23 05:09 Alkaline Phosphatase 62 Units/L (46-116) 03/02/23 05:09 Total Protein 6.6 g/dL (6.4-8.2) 03/02/23 05:09 Albumin 1.8 g/dL (3.4-5.0) L 03/02/23 05:09 Globulin 4.8 g/dL (2.5-4.5) H 03/02/23 05:09 Albumin/Globulin Ratio 0.4 Ratio (1.1-2.1) L 03/02/23 05:09 Lipase 33 Units/L (16-77) 02/28/23 09:47 Specimen Type Random urine 02/28/23 11:24 Urine Color Dark yellow (YELLOW) 02/28/23 11:24 Urine Appearance Clear (CLEAR) 02/28/23 11:24 Urine pH 6.0 (5.0 - 8.0) 02/28/23 11:24 Ur Specific [place] 1.015 (1.000-1.030) 02/28/23 11:24 Urine Protein 2+ (NEGATIVE) 02/28/23 11:24 Urine Glucose (UA) Negative (NEGATIVE) 02/28/23 11:24 Urine Ketones Negative (NEGATIVE) 02/28/23 11:24 Urine Blood 1+ (NEGATIVE) 02/28/23 11:24 Urine Nitrite Negative (NEGATIVE) 02/28/23 11:24 Urine Bilirubin Negative (NEGATIVE) 02/28/23 11:24 Urine Urobilinogen Normal (NORMAL) 02/28/23 11:24 Ur Leukocyte Esterase 1+ (NEGATIVE) 02/28/23 11:24 Urine RBC 0-2 /HPF (0-3) 02/28/23 11:24 Urine WBC 5-10 /HPF (0-5) A 02/28/23 11:24 Ur Squamous Epith Cells Rare /HPF (NEGATIVE) 02/28/23 11:24 Amorphous Sediment Trace /HPF (NEGATIVE) 02/28/23 11:24 Urine Bacteria Trace /HPF (NEGATIVE) 02/28/23 11:24 Hyaline Casts Rare /LPF (NEGATIVE) 02/28/23 11:24 Ur Culture Indicated? No/not indicated 02/28/23 11:24 SARS-CoV-2 (PCR) Negative (NEGATIVE) 02/28/23 09:28 Influenza Type A (PCR) Negative (NEGATIVE) 02/28/23 09:28 Influenza Type B (PCR) Negative (NEGATIVE) 02/28/23 09:28 RSV (PCR) Negative (NEGATIVE) 02/28/23 09:28 Plan (1) Acute on chronic renal failure: Status: Acute Qualifiers: Acute renal failure type: unspecified Chronic kidney disease stage: unspecified stage Qualified Code(s): N17.9 - Acute kidney failure, unspecified; N18.9 - Chronic kidney disease, unspecified (2) Acute hyponatremia: Status: Acute (3) Gout: Status: Acute Qualifiers: Chronicity: unspecified Gout etiology: unspecified cause Gout site: multiple sites Qualified Code(s): M10.9 - Gout, unspecified (4) MRSA cellulitis of left foot: Status: Acute (5) E coli infection: Status: Acute (6) Anemia: Status: Chronic Qualifiers: Anemia type: unspecified type Qualified Code(s): D64.9 - Anemia, unspecified (7) HTN (hypertension): Status: Chronic Qualifiers: Hypertension type: unspecified Qualified Code(s): I10 - Essential (primary) hypertension (8) Hyperlipidemia: Status: Chronic Qualifiers: Hyperlipidemia type: mixed hyperlipidemia Qualified Code(s): E78.2 - Mixed hyperlipidemia
[2023-03-02] MEDS ORDERED: TORADOL 15 MG VIAL ONE (14:46)
[2023-03-02] MEDS ORDERED: HYDROGEN PEROXIDE 3% ONE (16:47)
[2023-03-02] MEDS: PROTONIX TAB 40 MG PO SCH (20:39)
[2023-03-02] MEDS: ZOCOR TAB 20 MG PO SCH (20:39)
[2023-03-03] MEDS: TORADOL 15 MG VIAL IVP SCH ×3 (05:10→17:37)
[2023-03-03] MEDS: NS 1,000 ML IV 1,000 ML IV SCH (05:10)
[2023-03-03 06:56] LABS: BASOPHILS % (AUTO) 0.5 % (0.2-1.0); EOSINOPHILS # (AUTO) 0.3 x10^3/uL (0.0-0.2); EOSINOPHILS % (AUTO) 3.6 % (0.9-2.9); HEMATOCRIT 24.5 % (42.0-54.0); HEMOGLOBIN 8.1 g/dL (13.5-18.0); LYMPHOCYTES # (AUTO) 0.8 X10^3/uL (1.3-2.9); LYMPHOCYTES % (AUTO) 9.9 % (21.0-51.0); MEAN CORPUSCULAR HEMOGLOBIN 29.9 pg (27.0-34.0); MEAN CORPUSCULAR VOLUME 90.4 fL (80.0-100.0); MEAN PLATELET VOLUME 7.7 fL (7.4-11.0); MONOCYTES # (AUTO) 0.6 x10^3/uL (0.3-0.8); MONOCYTES % (AUTO) 7.3 % (0.0-13.0); NEUTROPHILS # (AUTO) 5.9 x10^3/uL (2.2-4.8); NEUTROPHILS % (AUTO) 78.7 % (42.0-75.0); PLATELET COUNT 297 X10^3/uL (150.0-450.0); RED BLOOD COUNT 2.71 X10^6/uL (4.7-6.0); WHITE BLOOD COUNT 7.5 X10^3/uL (3.6-10.0)
[2023-03-03 07:15] LABS: ALANINE AMINOTRANSFERASE 10 Units/L (12-78); ALBUMIN 1.5 g/dL (3.4-5.0); ALKALINE PHOSPHATASE 48 Units/L (46-116); ASPARTATE AMINO TRANSFERASE 14 Units/L (15-37); BLOOD UREA NITROGEN 22 mg/dL (7-18); CALCIUM 7.7 mg/dL (8.5-10.1); CARBON DIOXIDE 21.4 mmol/L (21-32); CHLORIDE 103 mmol/L (98-107); COR CA(FOR HYPOALB) 9.7 mg/dL (8.5-10.1); CREATININE 1.56 mg/dL (0.70-1.30); GLUCOSE 100 mg/dL (65-99); POTASSIUM 4.4 mmol/L (3.5-5.1); SODIUM 131 mmol/L (136-145); eGFR NON BLACK RACES 47 (>60)
--- NOTE | 2023-03-03 09:03 | DR.PROGNOT ---
HOSPITAL PROGRESS NOTE Progress Note for Day of: Progress Note Date: 03/03/23 Chief Complaint Chief Complaint: c/o pain not controlled with meds . less drainage from the foot ulcer. C&S showed MRSA and E Coli sensitive to Vancomycin. Past Medical Family Social History Past Med/Fam/Surg Hx: No changes since H&P Allergies: Allergies Penicillins Allergy (Unknown, Verified 02/28/23 09:03) childhood allergy Vital Signs Vital Signs: Vital Signs Temperature 98.5 F Pulse Rate [Right Brachial] 88 Respiratory Rate 18 Respiratory Rate 19 Respiratory Rate 20 Blood Pressure [Left Arm] 127/80 O2 Sat by Pulse Oximetry 96 Physical Exam Oriented: Normal Eyes: Normal Ear: Normal Nose: Normal Throat: Normal Cardiovascular: Normal : Normal GI:Auscultation: Normal GI:Palpation: Normal GI: Tenderness: Normal Skin: Other (4x3 cm open foot ulcer lateral aspect with less cellulitis and granulation ) Musculoskeletal: Right, Left, Elbow, Wrist, Hand, Ankle, Foot, Back:Lumbar, Swelling and Tender Psychiatric: Normal Mood Description: Calm Affect: Normal Speech Pattern: Clear and Appropriate Laboratory and Diagnostics 03/03/23 06:31 03/03/23 06:31 Labs: 02/28/23 09:47 Blood Blood Culture - Preliminary 02/28/23 09:42 Blood Blood Culture Gram Stain - Final 02/28/23 09:42 Blood Blood Culture - Preliminary Laboratory WBC 7.5 X10^3/uL (3.6-10.0) 03/03/23 06:31 RBC 2.71 X10^6/uL (4.7-6.0) L 03/03/23 06:31 Hgb 8.1 g/dL (13.5-18.0) L 03/03/23 06:31 Hct 24.5 % (42.0-54.0) L 03/03/23 06:31 MCV 90.4 fL (80.0-100.0) 03/03/23 06:31 MCH 29.9 pg (27.0-34.0) 03/03/23 06:31 MCHC 33.0 g/dL (33.0-35.0) 03/03/23 06:31 RDW 15.0 % (11.6-16.5) 03/03/23 06:31 Plt Count 297 X10^3/uL (150.0-450.0) 03/03/23 06:31 MPV 7.7 fL (7.4-11.0) 03/03/23 06:31 Neut % (Auto) 78.7 % (42.0-75.0) H 03/03/23 06:31 Lymph % (Auto) 9.9 % (21.0-51.0) L 03/03/23 06:31 [place] % (Auto) 7.3 % (0.0-13.0) 03/03/23 06:31 Eos % (Auto) 3.6 % (0.9-2.9) H 03/03/23 06:31 Baso % (Auto) 0.5 % (0.2-1.0) 03/03/23 06:31 Neut # (Auto) 5.9 x10^3/uL (2.2-4.8) H 03/03/23 06:31 Lymph # (Auto) 0.8 X10^3/uL (1.3-2.9) L 03/03/23 06:31 [place] # (Auto) 0.6 x10^3/uL (0.3-0.8) 03/03/23 06:31 Eos # (Auto) 0.3 x10^3/uL (0.0-0.2) H 03/03/23 06:31 Baso # (Auto) 0.0 X10^3/uL (0.0-0.1) 03/03/23 06:31 Absolute Nucleated RBC 0.0 /100WBC 03/03/23 06:31 Sodium 131 mmol/L (136-145) L 03/03/23 06:31 Corrected Sodium TNP 03/03/23 06:31 Potassium 4.4 mmol/L (3.5-5.1) 03/03/23 06:31 Chloride 103 mmol/L (98-107) 03/03/23 06:31 Carbon Dioxide 21.4 mmol/L (21-32) 03/03/23 06:31 BUN 22 mg/dL (7-18) H 03/03/23 06:31 Creatinine 1.56 mg/dL (0.70-1.30) H 03/03/23 06:31 Est GFR (MDRD) Af Amer 57 (>60) L 03/03/23 06:31 Est GFR (MDRD) Non-Af 47 (>60) L 03/03/23 06:31 Glucose 100 mg/dL (65-99) H 03/03/23 06:31 Lactic Acid 1.4 mmol/L (0.4-2.0) 02/28/23 09:47 Uric Acid 9.9 mg/dL (3.5-7.2) H 02/28/23 09:47 Calcium 7.7 mg/dL (8.5-10.1) L 03/03/23 06:31 Corrected Calcium 9.7 mg/dL (8.5-10.1) 03/03/23 06:31 Total Bilirubin 0.20 mg/dL (0.2-1.0) 03/03/23 06:31 AST 14 Units/L (15-37) L 03/03/23 06:31 ALT 10 Units/L (12-78) L 03/03/23 06:31 Alkaline Phosphatase 48 Units/L (46-116) 03/03/23 06:31 Total Protein 6.0 g/dL (6.4-8.2) L 03/03/23 06:31 Albumin 1.5 g/dL (3.4-5.0) L 03/03/23 06:31 Globulin 4.5 g/dL (2.5-4.5) 03/03/23 06:31 Albumin/Globulin Ratio 0.3 Ratio (1.1-2.1) L 03/03/23 06:31 Lipase 33 Units/L (16-77) 02/28/23 09:47 Specimen Type Random urine 02/28/23 11:24 Urine Color Dark yellow (YELLOW) 02/28/23 11:24 Urine Appearance Clear (CLEAR) 02/28/23 11:24 Urine pH 6.0 (5.0 - 8.0) 02/28/23 11:24 Ur Specific [place] 1.015 (1.000-1.030) 02/28/23 11:24 Urine Protein 2+ (NEGATIVE) 02/28/23 11:24 Urine Glucose (UA) Negative (NEGATIVE) 02/28/23 11:24 Urine Ketones Negative (NEGATIVE) 02/28/23 11:24 Urine Blood 1+ (NEGATIVE) 02/28/23 11:24 Urine Nitrite Negative (NEGATIVE) 02/28/23 11:24 Urine Bilirubin Negative (NEGATIVE) 02/28/23 11:24 Urine Urobilinogen Normal (NORMAL) 02/28/23 11:24 Ur Leukocyte Esterase 1+ (NEGATIVE) 02/28/23 11:24 Urine RBC 0-2 /HPF (0-3) 02/28/23 11:24 Urine WBC 5-10 /HPF (0-5) A 02/28/23 11:24 Ur Squamous Epith Cells Rare /HPF (NEGATIVE) 02/28/23 11:24 Amorphous Sediment Trace /HPF (NEGATIVE) 02/28/23 11:24 Urine Bacteria Trace /HPF (NEGATIVE) 02/28/23 11:24 Hyaline Casts Rare /LPF (NEGATIVE) 02/28/23 11:24 Ur Culture Indicated? No/not indicated 02/28/23 11:24 SARS-CoV-2 (PCR) Negative (NEGATIVE) 02/28/23 09:28 Influenza Type A (PCR) Negative (NEGATIVE) 02/28/23 09:28 Influenza Type B (PCR) Negative (NEGATIVE) 02/28/23 09:28 RSV (PCR) Negative (NEGATIVE) 02/28/23 09:28 Assessment and Plan 1: infected wound Lt foot distal , lateral 4x3 cm . positive for MRSA . on Vancomycin . local care ,irrigation and packing with Iodoform . 2: Gout and arthritis . on NSAID. Problem Patient Problems: Patient Problems Acute hyponatremia (Acute) E87.1 Acute febrile illness (Acute) R50.9 Acute on chronic renal failure (Acute) N17.9, N18.9 Gout (Acute) M10.9 MRSA cellulitis of left foot (Acute) L03.116, B95.62 E coli infection (Acute) A49.8 Anemia (Chronic) D64.9 HTN (hypertension) (Chronic) I10 Hyperlipidemia (Chronic) E78.5
[2023-03-03] MEDS: PROTONIX TAB 40 MG PO SCH ×2 (09:20→20:24)
[2023-03-03] MEDS: RIFADIN PO SCH ×2 (09:20→20:25)
[2023-03-03] MEDS: COLCRYS TAB 0.6 MG PO SCH ×2 (09:20→20:24)
[2023-03-03] MEDS ORDERED: PERCOCET TAB 5/325 MG PO PRN (09:24)
[2023-03-03] MEDS ORDERED: PHARMACY CONSULT - VANCOMYCIN XX SCH (11:00)
[2023-03-03] MEDS ORDERED: SOLU-Medrol 125 MG VIAL IVP ONE (11:44)
--- NOTE | 2023-03-03 11:52 | PCM.PROG ---
Progress Note Progress Note for Day of Date of Exam: 03/03/23 Subjective Subjective: Patient seen at bedside, no acute events overnight. He has been afebrile for 24 hrs. He continues to have worsening pain in his hands. He reports swelling of his joints. He states toradol does help for a short time. He is currently being treated for gout flare up and chronic left foot wound. Dr Farris did I&D on the left foot. Labs/imaging reviewed - Hgb 8.1 BUN/Cr /.56 -Blood Cx x 1: CONS -Wound Cx: MRSA + E.coli Plan: Will give one dose of Solumedrol 80mg IV, continue toradol and Percocet prn. Stop IVF. Follow surgery recommendations and wound care. Switch to IV Vancomycin, stop Invanz due to hx of wound infection with MRSA and E.coli. Follow final Cx. Monitor AM labs. Past Medical Family Social History Past Med/Fam/Surg Hx: No changes since H&P Allergies: Allergies Penicillins Allergy (Unknown, Verified 02/28/23 09:03) childhood allergy Vital Signs and I&O's Vital Signs: Vital Signs Temperature 97.4 F Temperature 98.5 F Pulse Rate [Right Brachial] 88 Pulse Rate [Right Brachial] 88 Respiratory Rate 18 Respiratory Rate 18 Respiratory Rate 19 Respiratory Rate 20 Blood Pressure [Left Arm] 125/76 Blood Pressure [Left Arm] 127/80 O2 Sat by Pulse Oximetry 96 O2 Sat by Pulse Oximetry 96 Intake and Output: Intake & Output 02/28/23 03/01/23 03/02/23 03/03/23 23:59 23:59 23:59 23:59 Intake Total 2402 / 2402 5899 / 5899 4814 / 4814 1537 / 1537 Output Total 200 / 200 670 / 670 710 / 710 300 / 300 Balance 2202 / 2202 5229 / 5229 4104 / 4104 1237 / 1237 Physical Exam Oriented: Normal Eyes: Normal Ear: Normal Nose: Normal Throat: Normal Cardiovascular: Normal Auscultation: Bowel Sounds: Normal Tenderness: Normal Skin: Other (4x3 cm open foot ulcer lateral aspect with less cellulitis and granulation ) Musculoskeletal: Right, Left, Elbow, Wrist, Hand, Ankle, Foot, Back:Lumbar, Swelling and Tender Psychiatric: Normal Mood Description: Calm Affect: Normal Speech Pattern: Clear and Appropriate Laboratory and Diagnostics 03/03/23 06:31 03/03/23 06:31 Labs: 02/28/23 09:42 Blood Blood Culture Gram Stain - Final 02/28/23 09:42 Blood Blood Culture - Final 02/28/23 09:47 Blood Blood Culture - Preliminary Laboratory WBC 7.5 X10^3/uL (3.6-10.0) 03/03/23 06:31 RBC 2.71 X10^6/uL (4.7-6.0) L 03/03/23 06:31 Hgb 8.1 g/dL (13.5-18.0) L 03/03/23 06:31 Hct 24.5 % (42.0-54.0) L 03/03/23 06:31 MCV 90.4 fL (80.0-100.0) 03/03/23 06:31 MCH 29.9 pg (27.0-34.0) 03/03/23 06:31 MCHC 33.0 g/dL (33.0-35.0) 03/03/23 06:31 RDW 15.0 % (11.6-16.5) 03/03/23 06:31 Plt Count 297 X10^3/uL (150.0-450.0) 03/03/23 06:31 MPV 7.7 fL (7.4-11.0) 03/03/23 06:31 Neut % (Auto) 78.7 % (42.0-75.0) H 03/03/23 06:31 Lymph % (Auto) 9.9 % (21.0-51.0) L 03/03/23 06:31 [place] % (Auto) 7.3 % (0.0-13.0) 03/03/23 06:31 Eos % (Auto) 3.6 % (0.9-2.9) H 03/03/23 06:31 Baso % (Auto) 0.5 % (0.2-1.0) 03/03/23 06:31 Neut # (Auto) 5.9 x10^3/uL (2.2-4.8) H 03/03/23 06:31 Lymph # (Auto) 0.8 X10^3/uL (1.3-2.9) L 03/03/23 06:31 [place] # (Auto) 0.6 x10^3/uL (0.3-0.8) 03/03/23 06:31 Eos # (Auto) 0.3 x10^3/uL (0.0-0.2) H 03/03/23 06:31 Baso # (Auto) 0.0 X10^3/uL (0.0-0.1) 03/03/23 06:31 Absolute Nucleated RBC 0.0 /100WBC 03/03/23 06:31 Sodium 131 mmol/L (136-145) L 03/03/23 06:31 Corrected Sodium TNP 03/03/23 06:31 Potassium 4.4 mmol/L (3.5-5.1) 03/03/23 06:31 Chloride 103 mmol/L (98-107) 03/03/23 06:31 Carbon Dioxide 21.4 mmol/L (21-32) 03/03/23 06:31 BUN 22 mg/dL (7-18) H 03/03/23 06:31 Creatinine 1.56 mg/dL (0.70-1.30) H 03/03/23 06:31 Est GFR (MDRD) Af Amer 57 (>60) L 03/03/23 06:31 Est GFR (MDRD) Non-Af 47 (>60) L 03/03/23 06:31 Glucose 100 mg/dL (65-99) H 03/03/23 06:31 Lactic Acid 1.4 mmol/L (0.4-2.0) 02/28/23 09:47 Uric Acid 9.9 mg/dL (3.5-7.2) H 02/28/23 09:47 Calcium 7.7 mg/dL (8.5-10.1) L 03/03/23 06:31 Corrected Calcium 9.7 mg/dL (8.5-10.1) 03/03/23 06:31 Total Bilirubin 0.20 mg/dL (0.2-1.0) 03/03/23 06:31 AST 14 Units/L (15-37) L 03/03/23 06:31 ALT 10 Units/L (12-78) L 03/03/23 06:31 Alkaline Phosphatase 48 Units/L (46-116) 03/03/23 06:31 Total Protein 6.0 g/dL (6.4-8.2) L 03/03/23 06:31 Albumin 1.5 g/dL (3.4-5.0) L 03/03/23 06:31 Globulin 4.5 g/dL (2.5-4.5) 03/03/23 06:31 Albumin/Globulin Ratio 0.3 Ratio (1.1-2.1) L 03/03/23 06:31 Lipase 33 Units/L (16-77) 02/28/23 09:47 Specimen Type Random urine 02/28/23 11:24 Urine Color Dark yellow (YELLOW) 02/28/23 11:24 Urine Appearance Clear (CLEAR) 02/28/23 11:24 Urine pH 6.0 (5.0 - 8.0) 02/28/23 11:24 Ur Specific [place] 1.015 (1.000-1.030) 02/28/23 11:24 Urine Protein 2+ (NEGATIVE) 02/28/23 11:24 Urine Glucose (UA) Negative (NEGATIVE) 02/28/23 11:24 Urine Ketones Negative (NEGATIVE) 02/28/23 11:24 Urine Blood 1+ (NEGATIVE) 02/28/23 11:24 Urine Nitrite Negative (NEGATIVE) 02/28/23 11:24 Urine Bilirubin Negative (NEGATIVE) 02/28/23 11:24 Urine Urobilinogen Normal (NORMAL) 02/28/23 11:24 Ur Leukocyte Esterase 1+ (NEGATIVE) 02/28/23 11:24 Urine RBC 0-2 /HPF (0-3) 02/28/23 11:24 Urine WBC 5-10 /HPF (0-5) A 02/28/23 11:24 Ur Squamous Epith Cells Rare /HPF (NEGATIVE) 02/28/23 11:24 Amorphous Sediment Trace /HPF (NEGATIVE) 02/28/23 11:24 Urine Bacteria Trace /HPF (NEGATIVE) 02/28/23 11:24 Hyaline Casts Rare /LPF (NEGATIVE) 02/28/23 11:24 Ur Culture Indicated? No/not indicated 02/28/23 11:24 SARS-CoV-2 (PCR) Negative (NEGATIVE) 02/28/23 09:28 Influenza Type A (PCR) Negative (NEGATIVE) 02/28/23 09:28 Influenza Type B (PCR) Negative (NEGATIVE) 02/28/23 09:28 RSV (PCR) Negative (NEGATIVE) 02/28/23 09:28 Plan (1) Acute on chronic renal failure: Status: Acute Qualifiers: Acute renal failure type: unspecified Chronic kidney disease stage: unspecified stage Qualified Code(s): N17.9 - Acute kidney failure, unspecified; N18.9 - Chronic kidney disease, unspecified (2) Acute hyponatremia: Status: Acute (3) Gout: Status: Acute Qualifiers: Chronicity: unspecified Gout etiology: unspecified cause Gout site: multiple sites Qualified Code(s): M10.9 - Gout, unspecified (4) MRSA cellulitis of left foot: Status: Acute (5) E coli infection: Status: Acute (6) Anemia: Status: Chronic Qualifiers: Anemia type: unspecified type Qualified Code(s): D64.9 - Anemia, unspecified (7) HTN (hypertension): Status: Chronic Qualifiers: Hypertension type: unspecified Qualified Code(s): I10 - Essential (primary) hypertension (8) Hyperlipidemia: Status: Chronic Qualifiers: Hyperlipidemia type: mixed hyperlipidemia Qualified Code(s): E78.2 - Mixed hyperlipidemia
[2023-03-03] MEDS: VANCOMYCIN IV *PREMIX 1 G/200 ML BAG 1 G/200 ML PIGGYBACK IV SCH ×2 (12:24→20:25)
[2023-03-03] MEDS: KLONOPIN TAB 1 MG PO PRN (20:24)
[2023-03-03] MEDS: ZOCOR TAB 20 MG PO SCH (20:25)
[2023-03-04] MEDS: TORADOL 15 MG VIAL IVP SCH ×2 (00:49→05:09)
[2023-03-04 06:24] LABS: BASOPHILS # (AUTO) 0.1 X10^3/uL (0.0-0.1); BASOPHILS % (AUTO) 1.4 % (0.2-1.0); EOSINOPHILS # (AUTO) 0.4 x10^3/uL (0.0-0.2); EOSINOPHILS % (AUTO) 5.9 % (0.9-2.9); HEMATOCRIT 25.8 % (42.0-54.0); HEMOGLOBIN 8.5 g/dL (13.5-18.0); LYMPHOCYTES # (AUTO) 0.9 X10^3/uL (1.3-2.9); LYMPHOCYTES % (AUTO) 15.2 % (21.0-51.0); MEAN CORPUSCULAR HEMOGLOBIN 29.5 pg (27.0-34.0); MEAN CORPUSCULAR HGB CONC 32.8 g/dL (33.0-35.0); MEAN CORPUSCULAR VOLUME 89.9 fL (80.0-100.0); MEAN PLATELET VOLUME 7.7 fL (7.4-11.0); MONOCYTES # (AUTO) 0.5 x10^3/uL (0.3-0.8); MONOCYTES % (AUTO) 7.9 % (0.0-13.0); NEUTROPHILS # (AUTO) 4.3 x10^3/uL (2.2-4.8); NEUTROPHILS % (AUTO) 69.6 % (42.0-75.0); PLATELET COUNT 309 X10^3/uL (150.0-450.0); RED BLOOD COUNT 2.87 X10^6/uL (4.7-6.0); RED CELL DISTRIBUTION WIDTH 15.1 % (11.6-16.5); WHITE BLOOD COUNT 6.1 X10^3/uL (3.6-10.0)
[2023-03-04 06:28] LABS: ALANINE AMINOTRANSFERASE 11 Units/L (12-78); ALBUMIN 1.6 g/dL (3.4-5.0); ALKALINE PHOSPHATASE 50 Units/L (46-116); ASPARTATE AMINO TRANSFERASE 13 Units/L (15-37); BLOOD UREA NITROGEN 20 mg/dL (7-18); CALCIUM 7.8 mg/dL (8.5-10.1); CHLORIDE 103 mmol/L (98-107); COR CA(FOR HYPOALB) 9.7 mg/dL (8.5-10.1); GLUCOSE 95 mg/dL (65-99); POTASSIUM 4.2 mmol/L (3.5-5.1); SODIUM 133 mmol/L (136-145); TOTAL PROTEIN 6.3 g/dL (6.4-8.2); eGFR NON BLACK RACES 49 (>60)
[2023-03-04] MEDS ORDERED: NS 1,000 ML IV 1,000 ML IV SCH (09:00)
[2023-03-04] MEDS: COLCRYS TAB 0.6 MG PO SCH (09:18)
[2023-03-04] MEDS: PROTONIX TAB 40 MG PO SCH (09:18)
[2023-03-04] MEDS: RIFADIN PO SCH (09:18)
[2023-03-04] MEDS: VANCOMYCIN IV *PREMIX 1 G/200 ML BAG 1 G/200 ML PIGGYBACK IV SCH (09:18)
[2023-03-04 09:45] VITALS: RESP 18
[2023-03-04] MEDS ORDERED: TORADOL 30 MG VIAL IVP PRN (10:35)
[2023-03-04] MEDS: SOLU-Medrol 40 MG VIAL IVP SCH ×2 (11:00→14:20)
[2023-03-04 11:21] LABS: CREATININE 1.48 mg/dL (0.70-1.30)
[2023-03-04 11:24] LABS: VANCOMYCIN,TROUGH 34.1 ug/mL (15-20)
[2023-03-04 13:18] VITALS: BP 128/77; PULSE 85; TEMP 98.3; O2SAT 97
[2023-03-04] MEDS ORDERED: PHARMACY COMMENT IV SCH (20:30)
== END 2023-03-04 16:00 | disposition home health service (06) | DRG 683 ==
LOC: ER 08:56 → MED/SURG 13:25
PROVIDERS: ADMIT Internal Medicine; ATTEND Internal Medicine
DX: B95.62 Methicillin resistant Staphylococcus aureus infection as the cause of diseases classified elsewhere; B96.29 Other Escherichia coli [E. coli] as the cause of diseases classified elsewhere; E78.2 Mixed hyperlipidemia; Z20.822 Contact with and (suspected) exposure to COVID-19; D64.89 Other specified anemias; I12.9 Hypertensive chronic kidney disease with stage 1 through stage 4 chronic kidney disease, or unspecified chronic kidney disease; L03.116 Cellulitis of left lower limb; N17.8 Other acute kidney failure; N18.9 Chronic kidney disease, unspecified; S91.302A Unspecified open wound, left foot, initial encounter; X58.XXXA Exposure to other specified factors, initial encounter; R79.82 Elevated C-reactive protein (CRP); M10.9 Gout, unspecified

== ENCOUNTER 2023-03-07 17:11 | Observation (INO) ==
[2023-03-07] MEDS ORDERED: COLCRYS TAB 0.6 MG PO SCH (18:00)
[2023-03-07] MEDS ORDERED: NS 1,000 ML IV 1,000 ML IV ONE (18:37)
[2023-03-07] MEDS ORDERED: SOLU-Medrol 125 MG VIAL IVP ONE (18:37)
[2023-03-07 19:25] LABS: BASOPHILS # (AUTO) 0.1 X10^3/uL (0.0-0.1); BASOPHILS % (AUTO) 0.4 % (0.2-1.0); EOSINOPHILS # (AUTO) 0.1 x10^3/uL (0.0-0.2); EOSINOPHILS % (AUTO) 0.9 % (0.9-2.9); HEMATOCRIT 27.6 % (42.0-54.0); HEMOGLOBIN 8.9 g/dL (13.5-18.0); LYMPHOCYTES % (AUTO) 6.6 % (21.0-51.0); MEAN CORPUSCULAR HEMOGLOBIN 29.2 pg (27.0-34.0); MEAN CORPUSCULAR HGB CONC 32.4 g/dL (33.0-35.0); MEAN PLATELET VOLUME 7.9 fL (7.4-11.0); MONOCYTES # (AUTO) 1.1 x10^3/uL (0.3-0.8); MONOCYTES % (AUTO) 7.4 % (0.0-13.0); NEUTROPHILS # (AUTO) 12.8 x10^3/uL (2.2-4.8); NEUTROPHILS % (AUTO) 84.7 % (42.0-75.0); PLATELET COUNT 375 X10^3/uL (150.0-450.0); RED BLOOD COUNT 3.07 X10^6/uL (4.7-6.0); RED CELL DISTRIBUTION WIDTH 15.4 % (11.6-16.5); WHITE BLOOD COUNT 15.2 X10^3/uL (3.6-10.0)
[2023-03-07 19:27] LABS: ERYTHROCYTE SEDIMENTATION RATE 130 MM/HOUR (0-15)
[2023-03-07 19:37] LABS: ALBUMIN 1.8 g/dL (3.4-5.0); CALCIUM 8.1 mg/dL (8.5-10.1); CARBON DIOXIDE 22.9 mmol/L (21-32); COR CA(FOR HYPOALB) 9.9 mg/dL (8.5-10.1); CREATININE 2.28 mg/dL (0.70-1.30); POTASSIUM 4.8 mmol/L (3.5-5.1); TOTAL PROTEIN 7.1 g/dL (6.4-8.2); URIC ACID 9.4 mg/dL (3.5-7.2)
[2023-03-07] MEDS: COLCRYS TAB 0.6 MG PO SCH (20:20)
[2023-03-07] MEDS ORDERED: PERCOCET TAB 5/325 MG PO PRN (20:49)
[2023-03-07] MEDS ORDERED: CLONAZEPAM 2 MG PO PRN (20:49)
[2023-03-07] MEDS: NS 1,000 ML IV 1,000 ML IV SCH (21:00)
[2023-03-07] MEDS: OMNICEF CAP 300 MG PO SCH (21:09)
[2023-03-07] MEDS: BACTRIM DS TAB PO SCH (21:09)
[2023-03-07] MEDS: TORADOL 30 MG VIAL IVP SCH (21:10)
[2023-03-07] MEDS: PROTONIX TAB 40 MG PO SCH (21:14)
[2023-03-07 21:40] VITALS: BMI 30.7
[2023-03-08] MEDS: NS 1,000 ML IV 1,000 ML IV SCH ×3 (04:12→20:30)
[2023-03-08] MEDS: SOLU-Medrol 40 MG VIAL IVP SCH ×3 (05:17→21:00)
[2023-03-08] MEDS: TORADOL 30 MG VIAL IVP SCH ×3 (05:17→20:30)
[2023-03-08 06:25] LABS: BASOPHILS % (AUTO) 0.3 % (0.2-1.0); HEMATOCRIT 25.4 % (42.0-54.0); HEMOGLOBIN 8.4 g/dL (13.5-18.0); LYMPHOCYTES # (AUTO) 0.9 X10^3/uL (1.3-2.9); LYMPHOCYTES % (AUTO) 7.4 % (21.0-51.0); MEAN CORPUSCULAR HEMOGLOBIN 29.4 pg (27.0-34.0); MEAN CORPUSCULAR HGB CONC 32.8 g/dL (33.0-35.0); MEAN CORPUSCULAR VOLUME 89.6 fL (80.0-100.0); MONOCYTES # (AUTO) 0.3 x10^3/uL (0.3-0.8); MONOCYTES % (AUTO) 2.9 % (0.0-13.0); NEUTROPHILS # (AUTO) 10.3 x10^3/uL (2.2-4.8); NEUTROPHILS % (AUTO) 89.4 % (42.0-75.0); PLATELET COUNT 319 X10^3/uL (150.0-450.0); RED BLOOD COUNT 2.84 X10^6/uL (4.7-6.0); RED CELL DISTRIBUTION WIDTH 15.4 % (11.6-16.5); WHITE BLOOD COUNT 11.5 X10^3/uL (3.6-10.0)
[2023-03-08 06:37] LABS: ALBUMIN 1.6 g/dL (3.4-5.0); CALCIUM 7.9 mg/dL (8.5-10.1); CARBON DIOXIDE 21.1 mmol/L (21-32); COR CA(FOR HYPOALB) 9.8 mg/dL (8.5-10.1); CREATININE 1.94 mg/dL (0.70-1.30); POTASSIUM 5.3 mmol/L (3.5-5.1); TOTAL PROTEIN 6.5 g/dL (6.4-8.2)
[2023-03-08] MEDS: BACTRIM DS TAB PO SCH ×2 (09:11→20:29)
[2023-03-08] MEDS: PROTONIX TAB 40 MG PO SCH ×2 (09:11→20:29)
[2023-03-08] MEDS: COLCRYS TAB 0.6 MG PO SCH ×2 (09:12→20:29)
[2023-03-08] MEDS: OMNICEF CAP 300 MG PO SCH ×2 (09:12→20:28)
[2023-03-08] MEDS: BENICAR PO SCH (09:12)
[2023-03-08] MEDS: ALBUMIN HUMAN 25%- 100 ML 100 ML IV SCH (09:17)
--- NOTE | 2023-03-08 13:02 | DR.UPDATE ---
H&P Update Prescription drug monitoring program results: PDMP reviewed and no concerns identified H&P Reviewed: Yes Any changes to H&P?: Yes Changes noted:: WAS HOSPITALIZED FROM 02/28/23 UNTIL 03/04/23 FOR TREATMENT OF ACUTE ON CHRONIC RENAL FAILURE, HYPONATREMIA, GOUT, MRSA OF LEFT FOOT, E.COLI OF LEFT FOOT, AND ANEMIA. HE WAS DISCHARGED HOME ON CEFDINIR 300MG BID, BACTRIM DS BID, COLCHICINE 0.6MG BID PRN, TRAMADOL PRN, AND PERCOCET PRN. PATIENT PRESENTED TO THE OFFICE ON 03/07/23 FOR FOLLOW-UP. UPON ARRIVAL TO THE OFFICE, PATIENT WAS NOTED TO BE IN SEVERE PAIN. HE COMPLAINED OF PAIN TO BILATERAL KNEES, HANDS, FEET, SHOULDERS, AND ARMS. PATIENT REPORTS THAT PAIN IS SO SEVERE THAT HE IS NOT ABLE TO WALK OR USE HIS HANDS. PATIENT WAS NOTED TO BE IN OBVIOUS DISTRESS DUE TO PAIN. HE WAS GIVEN BILATERAL JOINT INJECTIONS OF [place] TO BILATERAL KNEES. DECISION WAS MADE TO READMIT PATIENT TO THE HOSPITAL FOR FURTHER EVALUATION AND TREATMENT OF SEVERE GOUT FLARE, INTRACTABLE PAIN, ACUTE ON CHRONIC RENAL FAILURE, ANEMIA, AND MRSA AND E.COLI OF LEFT FOOT. ON ARRIVAL TO THE HOSPITAL, HIS VITALS WERE: 98.3-91-18-95%-113/76. LABS WERE OBTAINED. WBC 15.2, RBC 3.07, HGB 8.9, HCT 27.6, PLT COUNT 375, SODIUM 128, POTASSIUM 4.8, CHLORIDE 96, BUN 31, CREATININE 2.28, GLUCOSE 166, URIC ACID 9.4, CALCIUM 8.1, TOTAL BILI 0.30, AST 16, ALT 16, ALK PHOS 56, CRP 290.90, TOTAL PROTEIN 7.1, ALBUMIN 1.8. ON ADMISSION, HE WAS STARTED NORMAL SALINE AT 125 ML/HR, ALBUMIN 25% IV DAILY, SOLU-MEDROL 80MG IV Q8H, TORADOL 30MG IV Q8H, COLCRYS 0.6MG BID, CEFDINIR 300MG BID, BACTRIM DS 1TAB BID, KLONOPIN 1MG DAILY, OLMESARTAN 40MG DAILY, PERCOCET 5/325MG Q6H PRN, PROTONIX 40MG BID. OTHERWISE, WE WILL FOLLOW UP WITH AM LABS AND CONTINUE TO MONITOR. TIME SPENT ON CLINICAL ASSESSMENT, REVIEWING LABS AND IMAGING, DECISION MAKING, AND DOCUMENTATION GREATER THAN 75 MINUTES. Patient was examined?: Yes Vital Signs: Temp Pulse Resp BP Pulse Ox O2 Del Method 03/08/23 12:00 97.8 F 86 18 138/78 97 03/08/23 07:00 Room Air 03/08/23 05:47 18 03/08/23 08:00 97.7 F 76 18 120/78 96 03/08/23 04:00 98.0 F 72 20 118/72 96 03/08/23 05:17 16 03/07/23 18:25 98.3 F 91 H 18 113/76 95 03/07/23 21:40 14 03/08/23 00:00 98.4 F 82 20 131/76 95 03/07/23 19:00 Room Air 03/07/23 20:00 99.2 F 88 18 139/64 96 03/07/23 21:10 16 03/07/23 18:30 Room Air
[2023-03-08] MEDS: KLONOPIN TAB 1 MG PO PRN (20:35)
[2023-03-09] MEDS: NS 1,000 ML IV 1,000 ML IV SCH ×3 (02:48→20:11)
[2023-03-09] MEDS: SOLU-Medrol 40 MG VIAL IVP SCH ×3 (05:19→21:07)
[2023-03-09] MEDS: TORADOL 30 MG VIAL IVP SCH ×3 (05:19→20:13)
[2023-03-09 06:23] LABS: BASOPHILS % (AUTO) 0.2 % (0.2-1.0); HEMATOCRIT 24.8 % (42.0-54.0); MEAN CORPUSCULAR HGB CONC 32.3 g/dL (33.0-35.0); MEAN CORPUSCULAR VOLUME 89.9 fL (80.0-100.0); MEAN PLATELET VOLUME 8.1 fL (7.4-11.0); MONOCYTES # (AUTO) 0.6 x10^3/uL (0.3-0.8); MONOCYTES % (AUTO) 4.7 % (0.0-13.0); NEUTROPHILS # (AUTO) 10.5 x10^3/uL (2.2-4.8); NEUTROPHILS % (AUTO) 87.1 % (42.0-75.0); PLATELET COUNT 364 X10^3/uL (150.0-450.0); RED BLOOD COUNT 2.76 X10^6/uL (4.7-6.0); RED CELL DISTRIBUTION WIDTH 15.1 % (11.6-16.5)
[2023-03-09 06:36] LABS: ALBUMIN 1.6 g/dL (3.4-5.0); CALCIUM 7.5 mg/dL (8.5-10.1); CARBON DIOXIDE 20.4 mmol/L (21-32); COR CA(FOR HYPOALB) 9.4 mg/dL (8.5-10.1); CREATININE 1.75 mg/dL (0.70-1.30)
[2023-03-09 06:38] LABS: POTASSIUM 5.1 mmol/L (3.5-5.1)
[2023-03-09] MEDS: PROTONIX TAB 40 MG PO SCH ×2 (08:48→20:47)
[2023-03-09] MEDS: OMNICEF CAP 300 MG PO SCH ×2 (08:49→20:11)
[2023-03-09] MEDS: BENICAR PO SCH (08:49)
[2023-03-09] MEDS: BACTRIM DS TAB PO SCH ×2 (08:49→20:12)
[2023-03-09] MEDS: COLCRYS TAB 0.6 MG PO SCH ×2 (08:49→20:12)
[2023-03-09] MEDS: ALBUMIN HUMAN 25%- 100 ML 100 ML IV SCH (08:50)
[2023-03-09] MEDS: VOLTAREN 1 % GEL MULTI DOSE TUBE TOP SCH ×2 (13:29→21:07)
[2023-03-09] MEDS: KLONOPIN TAB 1 MG PO PRN (20:12)
[2023-03-10] MEDS: NS 1,000 ML IV 1,000 ML IV SCH (02:28)
[2023-03-10 04:23] VITALS: PULSE 74
[2023-03-10] MEDS: SOLU-Medrol 40 MG VIAL IVP SCH (05:04)
[2023-03-10] MEDS: TORADOL 30 MG VIAL IVP SCH (05:05)
[2023-03-10] MEDS: VOLTAREN 1 % GEL MULTI DOSE TUBE TOP SCH (05:09)
[2023-03-10 05:23] LABS: BASOPHILS % (AUTO) 0.1 % (0.2-1.0); HEMATOCRIT 24.7 % (42.0-54.0); HEMOGLOBIN 8.2 g/dL (13.5-18.0); LYMPHOCYTES # (AUTO) 0.9 X10^3/uL (1.3-2.9); LYMPHOCYTES % (AUTO) 8.5 % (21.0-51.0); MEAN CORPUSCULAR HEMOGLOBIN 29.7 pg (27.0-34.0); MEAN CORPUSCULAR VOLUME 89.8 fL (80.0-100.0); MEAN PLATELET VOLUME 8.2 fL (7.4-11.0); MONOCYTES # (AUTO) 0.4 x10^3/uL (0.3-0.8); MONOCYTES % (AUTO) 3.5 % (0.0-13.0); NEUTROPHILS % (AUTO) 87.9 % (42.0-75.0); PLATELET COUNT 372 X10^3/uL (150.0-450.0); RED BLOOD COUNT 2.75 X10^6/uL (4.7-6.0); RED CELL DISTRIBUTION WIDTH 15.4 % (11.6-16.5); WHITE BLOOD COUNT 10.2 X10^3/uL (3.6-10.0)
[2023-03-10 05:41] LABS: ALBUMIN 1.8 g/dL (3.4-5.0); CALCIUM 7.4 mg/dL (8.5-10.1); CARBON DIOXIDE 18.5 mmol/L (21-32); COR CA(FOR HYPOALB) 9.2 mg/dL (8.5-10.1); CREATININE 1.8 mg/dL (0.70-1.30); TOTAL PROTEIN 5.9 g/dL (6.4-8.2)
[2023-03-10 05:43] LABS: POTASSIUM 5.1 mmol/L (3.5-5.1)
[2023-03-10] MEDS: BENICAR PO SCH (08:19)
[2023-03-10] MEDS: BACTRIM DS TAB PO SCH (08:19)
[2023-03-10] MEDS: ALBUMIN HUMAN 25%- 100 ML 100 ML IV SCH (08:19)
[2023-03-10] MEDS: COLCRYS TAB 0.6 MG PO SCH (08:19)
[2023-03-10] MEDS: OMNICEF CAP 300 MG PO SCH (08:19)
[2023-03-10] MEDS: PROTONIX TAB 40 MG PO SCH (08:20)
[2023-03-10 09:23] VITALS: BP 131/78; RESP 20; TEMP 98.4; O2SAT 94
== END 2023-03-10 11:40 | disposition home health service (06) ==
LOC: MED/SURG
PROVIDERS: ADMIT Internal Medicine; ATTEND Internal Medicine
DX: E87.5 Hyperkalemia; R70.0 Elevated erythrocyte sedimentation rate; R73.09 Other abnormal glucose; E87.1 Hypo-osmolality and hyponatremia; M10.09 Idiopathic gout, multiple sites; Z79.899 Other long term (current) drug therapy; R79.82 Elevated C-reactive protein (CRP)